=== PATIENT | male | born 1955 | race Caucasian/White ===

== ENCOUNTER 2017-11-27 15:59 | Emergency (ER) | payer OTHER, MEDICAID, SELFPAY ==
[2017-11-27 16:02] VITALS: BP 113/71; PULSE 83; RESP 16; TEMP 35.7; O2SAT 98; BMI 30.2
--- NOTE | 2017-11-27 16:04 | DI.RAD.S_ITS ---
PROCEDURE: XR CHEST 1V INDICATIONS: chest pain TECHNIQUE: One view of the chest was acquired. COMPARISON: None. FINDINGS: Surgical changes and devices: None. Lungs and pleura: No pleural effusions or pneumothorax. Lungs are clear. Mediastinum: Mediastinal contours appear normal. Heart size is normal. Bones and chest wall: No suspicious bony lesions. Overlying soft tissues appear unremarkable. IMPRESSION: No acute process. Dictated by: Stephany Langston M.D. on 11/27/2017 at 16:14 Approved by: Stephany Langston M.D. on 11/27/2017 at 16:14
--- NOTE | 2017-11-27 16:06 | ED.CHESTPAIN ---
HPI - Chest Pain General Chief Complaint: Chest Pain Stated Complaint: SENT TO R/O HEART ATTACK Time Seen by Provider: 11/27/17 16:04 Source: patient Mode of arrival: ambulatory Limitations: no limitations History of Present Illness HPI narrative: 62-year-old male sent over from the walk-in clinic for evaluation of chest pain. Patient states that earlier today he was working above his head with his left arm elevated and had a sharp pain in his left shoulder. He stated that he put his arm down and the pain went away but then shortly afterwards came back worse than it was before. Lasted a very short period of time. States that it hurts so bad that he became sweaty And nauseous. He did not state that he ever had chest pain. No shortness of breath. He reports that his symptoms had completely resolved by the time he arrived here in the emergency department. Related Data Home Medications Medication Instructions Recorded Confirmed elviteg 150 mg-cob 150 mg-emtricit 1 tab PO DAILY 11/27/17 11/27/17 200 mg-tenofo disopro 300 mg tablet Allergies Allergy/AdvReac Type Severity Reaction Status Date / Time No Known Drug Allergies Allergy Verified 11/27/17 16:02 Review of Systems Constitutional Denies chills, Denies fatigue, Denies fever(s) and Denies headache(s) ENT Ears, Nose, Mouth, and Throat: Denies headache(s) Cardiovascular Denies chest pain, Denies edema, Denies palpitations and Denies dyspnea Respiratory Denies cough and Denies dyspnea Gastrointestinal Gastrointestinal: Denies abdominal pain, Denies diarrhea, Denies nausea and Denies vomiting Musculoskeletal Comments: Left shoulder pain Integumentary/Breasts Denies lesions and Denies rash Neurologic Denies confusion and Denies headache(s) Psychiatric Denies confusion Endocrine Denies fatigue and Denies palpitations Hematologic/Lymphatic Denies easy bleeding and Denies easy bruising Allergic/Immunologic Denies urticaria [facility] Social History Smoking Status: Current every day smoker Exam Initial Vital Signs Initial Vital Signs: Vital Signs Temperature 96.3 F L 11/27/17 16:02 Pulse Rate 83 11/27/17 16:02 Respiratory Rate 16 11/27/17 16:02 Blood Pressure 113/71 11/27/17 16:02 Pulse Oximetry 98 11/27/17 16:02 Const General: cooperative, healthy appearing, comfortable, well developed, well groomed and No acute distress Orientation: alert, awake and oriented x3 HENMT Head: normal to inspection and normocephalic Resp Effort & Inspection: normal respiratory effort Auscultation: clear to auscultation bilaterally Cardio Rate: regular rate Rhythm: regular rhythm Pulses: radial pulses present GI Inspection: normal to inspection and non-distended Palpation: soft, No firm and No tender Skin Lesions: no lesions Rashes: no rashes Neuro General: alert, awake and oriented x3 Cognition: normal cognition Speech: speech normal Extrem Other: unremarkable left shoulder exam here in the emergency department left elbow unremarkable cervical spine unremarkable Psych Appearance: grossly normal, well kempt and not disheveled Course Orders Ordered: ED Orders 11/27/17 16:04 XR chest 1V Stat EKG-12 Lead Stat 11/27/17 16:20 B Type Natriuretic Peptide Stat Complete Blood Count AUTO DIFF Stat Comprehensive Metabolic Panel Stat Lipase Stat Troponin & CK Cardiac Panel Stat 11/27/17 17:30 Urine Culture Stat Urine Microscopic Stat Discontinued Medications Aspirin (Aspirin Chew) 324 mg PO NOW ONE Stop: 11/27/17 16:05 Vital Signs - 8 hr 11/27/17 16:02 11/27/17 16:38 11/27/17 17:48 Temperature 96.3 F L Pulse Rate 83 72 70 Respiratory Rate 16 21 25 H Blood Pressure 113/71 Blood Pressure [Left Arm] 102/65 100/68 Pulse Oximetry 98 97 98 11/27/17 17:57 Temperature Pulse Rate 79 Respiratory Rate 21 Blood Pressure 100/68 Blood Pressure [Left Arm] Pulse Oximetry 98 MDM - Chest Pain Medical Records Data Attestation: I reviewed the patient's medical records. Lab Data Attestation: I reviewed the patient's lab results. Result diagrams: 11/27/17 16:20 11/27/17 16:20 Lab Results 11/27/17 11/27/17 11/27/17 Range/Units 16:20 16:20 17:30 WBC 10.1 (4.5-11.0) X10^3/uL RBC 4.80 (4.5-5.9) X10^6/uL Hgb 16.2 (13.5-17.5) g/dL Hct 46.8 (41-53) % MCV 97.4 (80-100) fL MCH 33.9 (26-34) PG MCHC 34.7 (30-36) % RDW 13.3 (11.6-14.8) % Plt Count 290 (150-400) X10^3/uL Neut % (Auto) 71.2 (50-75) % Lymph % (Auto) 20.5 L (25-40) % [place] % (Auto) 5.4 (3-14) % Eos % (Auto) 2.2 (2-4) % Baso % (Auto) 0.7 (0-2) % Neut # (Auto) 7200 H (3942-5084) /uL Sodium 139 (137-145) mmol/L Potassium 4.4 (3.4-5.1) mmol/L Chloride 103 (98-107) mmol/L Carbon Dioxide 26 (22-32) mmol/L BUN 22 H (9-20) mg/dL Creatinine 1.10 (0.66-1.25) mg/dL Estimated GFR > 60.0 (>60) mL/min BUN/Creatinine Ratio 20.0 (6-22) Glucose 99 (80-110) mg/dL Calcium 9.2 (8.4-10.2) mg/dL Total Bilirubin 0.7 (0.2-1.3) mg/dL AST 27 (17-59) IU/L ALT 29 (21-72) IU/L Alkaline Phosphatase 68 (38-126) U/L Total Creatine Kinase 171 H (55-170) U/L CK-MB (CK-2) 2.88 H (<2.37) ng/mL CK-MB (CK-2) Rel Index 1.7 (1.5-5.0) % Troponin I < 0.012 (0.01-0.034) ng/mL B-Natriuretic Peptide < 100.0 (<100) Total Protein 7.3 (6.3-8.2) g/dL Albumin 4.5 (3.5-5.0) g/dL Globulin 2.8 (1.7-4.1) g/dL Albumin/Globulin Ratio 1.6 (1.0-2.8) Lipase 49 (23-300) U/L Urine RBC 1-5/hpf (0-5/HPF) Urine WBC 1-5/hpf (0-5/HPF) Ur Squamous Epith Cells None seen Amorphous Sediment 2+ Urine Bacteria Few (2-10) H (None) Ur Culture Indicated? Specimen cultured Micro UA Comment Not Reportable Imaging Data Chest x-ray: Radiologist's impression: PROCEDURE: XR CHEST 1V INDICATIONS: chest pain TECHNIQUE: One view of the chest was acquired. COMPARISON: None. FINDINGS: Surgical changes and devices: None. Lungs and pleura: No pleural effusions or pneumothorax. Lungs are clear. Mediastinum: Mediastinal contours appear normal. Heart size is normal. Bones and chest wall: No suspicious bony lesions. Overlying soft tissues appear unremarkable. IMPRESSION: No acute process. Dictated by: Stephany Langston M.D. on 11/27/2017 at 16:14 ECG Data Attestation: I personally reviewed and interpreted this ECG as follows: Prior ECG tracings: not available for review Interpretation: Sinus rhythm ventricular rate is 72 Normal QRS normal QTC No ST T wave changes MDM Narrative Medical decision making narrative: initial reports from the walk-in clinic with that the patient was having chest pain and was diaphoretic. Upon further evaluation here in the emergency department the patient states that he never had chest pain. He states that he was sweating because he was having pain in his left shoulder. The pain has now completely resolved. Chest x-ray was negative. EKG was nonischemic. Troponin was negative. His history and physical exam was not consistent with acute coronary syndrome. Small consistent with impingement syndrome of his left shoulder since he was working over his head at the time of the event. States he has never had anything like this happen to him before. patient was given return precautions. Will hold on further workup for now. He expressed understanding and agreement with plan Discharge Plan Departure Patient Disposition: Home, Self-Care Clinical Impression: Acute pain of left shoulder Discharge Date/Time: 11/27/17 17:59 Interventions: ED Discharge Assessment Last Done: 11/27/17 17:57 Instructions: How To Perform RICE (Rest, Ice, Compress, Elevate) Activity Restrictions/Additional Instructions: recommend that you contact your primary care doctor for a follow-up. You are not restricted on any of your activity. Return to the emergency department for any new or worsening symptoms. Prescriptions: No Action nadappj-nfj-wqvue-tenofo disop [Stribild] [id number] mg tablet 1 tab PO DAILY RF: 0
[2017-11-27 16:32] LABS: Add Manual Diff / Slide Review NO; Basophils Percent Auto 0.7 % (0-2); Eosinophils Percent Auto 2.2 % (2-4); Hematocrit 46.8 % (41-53); Hemoglobin 16.2 g/dL (13.5-17.5); Lymphocytes Percent Auto 20.5 % (25-40); Mean Corpuscular HGB Conc 34.7 % (30-36); Mean Corpuscular Hemoglobin 33.9 PG (26-34); Mean Corpuscular Volume 97.4 fL (80-100); Monocytes Percent Auto 5.4 % (3-14); Neutrophils Absolute Auto 7200 /uL (3000-5900); Neutrophils Percent Auto 71.2 % (50-75); Platelet Count 290 X10^3/uL (150-400); Red Cell Distribution Width 13.3 % (11.6-14.8); White Blood Cell Count 10.1 X10^3/uL (4.5-11.0)
[2017-11-27 16:38] VITALS: BP 102/65; PULSE 72; RESP 21; O2SAT 97
[2017-11-27 16:47] LABS: Alanine Aminotransferase 29 IU/L (21-72); Albumin 4.5 g/dL (3.5-5.0); Albumin Globulin Ratio 1.6 (1.0-2.8); Alkaline Phosphatase 68 U/L (38-126); Aspartate Aminotransferase 27 IU/L (17-59); Bilirubin Total 0.7 mg/dL (0.2-1.3); Blood Urea Nitrogen 22 mg/dL (9-20); Calcium 9.2 mg/dL (8.4-10.2); Carbon Dioxide 26 mmol/L (22-32); Chloride 103 mmol/L (98-107); Creatine Kinase 171 U/L (55-170); Estimated Glomerular Filt Rate > 60.0 mL/min (>60); Globulin 2.8 g/dL (1.7-4.1); Glucose 99 mg/dL (80-110); HEMOLYSIS 34 (0-50); Lipase 49 U/L (23-300); Potassium 4.4 mmol/L (3.4-5.1); Sodium 139 mmol/L (137-145); Total Protein 7.3 g/dL (6.3-8.2)
[2017-11-27 17:00] LABS: Troponin I < 0.012 ng/mL (0.01-0.034)
[2017-11-27 17:04] LABS: B Type Natriuretic Peptide < 100.0 (<100)
[2017-11-27 17:17] LABS: CKMB % Relative Index 1.7 % (1.5-5.0); Creatine Kinase MB 2.88 ng/mL (<2.37)
[2017-11-27 17:48] VITALS: BP 100/68; PULSE 70; RESP 25; O2SAT 98
[2017-11-27 17:54] LABS: RBC Urine 1-5/HPF (0-5/HPF); Squamous Epithelial Cell Urine None Seen; WBC Urine 1-5/HPF (0-5/HPF)
[2017-11-27 17:55] LABS: Amorphous Sediment Urine 2+; Bacteria Urine Few (2-10); Culture Indicated Urine Specimen Cultured
[2017-11-27 17:57] VITALS: BP 100/68; PULSE 79; RESP 21; O2SAT 98
== END 2017-11-27 17:59 | disposition home or self-care (01) ==
PROVIDERS: Emergency Provider Emergency Medicine
DX: M25.512 Pain in left shoulder (principal)
CPT/HCPCS: 36591; 71045; 80053; 81003; 81015; 82550; 82553; 83690; 83880; 84484; 85025; 87077; 87086; 87186; 93005; 99282; 99285

== ENCOUNTER 2019-08-06 19:19 | Emergency (ER) | payer OTHER, MEDICAID, SELFPAY ==
[2019-08-06 19:33] VITALS: BP 137/74; PULSE 97; RESP 15; TEMP 36.9; O2SAT 98; BMI 32.0
--- NOTE | 2019-08-06 19:53 | DI.CT.S_ITS ---
PROCEDURE: CT CERVICAL SPINE WO CON INDICATIONS: no injury, stiff neck, right and left lower facet joint tend TECHNIQUE: Noncontrast 3 mm thick sections acquired from the skull base to the T4 level. Sagittal and coronal reformats were then constructed. For radiation dose reduction, the following was used: automated exposure control, adjustment of mA and/or kV according to patient size. COMPARISON: None. FINDINGS: Image quality: Excellent. Bones: No acute fractures . Straightening of cervical lordosis with mild reversal centered at C4. Moderate multilevel cervical spondylosis throughout the cervical spine most pronounced at C4-5 and C5-6. No acute compression fractures. Moderate facet arthrosis most prominent at C3-4 on the left. There is disc space loss, degenerative endplate changes, and endplate osteophyte formation at C4-5 and C5-6. Similar but less prominent findings are noted throughout the cervical spine. There is moderate left neural foraminal narrowing at C3-4. Moderate-severe bilateral neuroforaminal stenosis at C4-5 with moderate spinal canal stenosis. Moderate-severe bilateral neuroforaminal stenosis at C5-6 with moderate spinal canal stenosis. Visualized superior ribs are intact. Soft tissues: Prevertebral soft tissues are normal in thickness. No paravertebral hematomas. No apical pneumothoraces. IMPRESSION: 1. CT cervical spine without acute fracture. 2. Moderate-severe multilevel cervical spondylosis most severe at C4-5 and C5-6 where there is disc space loss, degenerative endplate changes, and prominent endplate osteophyte formation resulting in moderate-severe bilateral neuroforaminal stenosis and moderate spinal canal stenosis at these levels. 3. Straightening of cervical lordosis with mild reversal centered at C4. Dictated by: Humberto More M.D. on 08/06/2019 at 20:35 Approved by: Humberto More M.D. on 08/06/2019 at 20:42
--- NOTE | 2019-08-06 19:53 | DI.CT.S_ITS ---
PROCEDURE: CT HEAD/BRAIN WO CON INDICATIONS: severe posterior headache, no fall or injury TECHNIQUE: Noncontrast 4.5 mm thick angled axial sections acquired from the foramen magnum to the vertex, with coronal and sagittal reformats. For radiation dose reduction, the following was used: automated exposure control, adjustment of mA and/or kV according to patient size. COMPARISON: None. FINDINGS: Image quality: Excellent. CSF spaces: Basal cisterns are patent. No extra-axial fluid collections. The ventricles are symmetric in size and shape. Brain: No intracranial bleeds or masses. There is cerebral volume loss for age, with resultant ventricular and sulcal prominence. There are periventricular and deep white matter chronic small vessel ischemic changes. There is intracranial internal carotid artery atherosclerosis. Calcification of the pineal gland. Skull and face: Calvarium and visualized facial bones appear intact, without suspicious lesions. Sinuses: Visualized sinuses and mastoids are clear. IMPRESSION: CT head without acute intracranial abnormalities. Dictated by: Humberto More M.D. on 08/06/2019 at 20:34 Approved by: Humberto More M.D. on 08/06/2019 at 20:34
--- NOTE | 2019-08-06 19:53 | ED.NECK ---
HPI - Neck Pain/Injury General Chief Complaint: Neck Pain/Injury Stated Complaint: STIFF NECK AND HEADACHE Time Seen by Provider: 08/06/19 19:44 Mode of arrival: Ambulatory Limitations: no limitations History of Present Illness HPI Narrative: CC: The patient is a 63-year-old male that denies any known specific injury to his neck. He has developed over the last 2 days significant pain and discomfort in his neck and posterior occiput. He has also had a headache located behind both of his eyes. He states that it hurts to move the arm especially yesterday and less pain and discomfort today. He states that he has been taking ibuprofen for the pain and discomfort. Tonight he was just feeling sick and the headache was worse today. He had a mild temperature of 99?. They called the nurse help line and was sent into the emergency department to be evaluated. He denies any fall or injury. He admits to being HIV positive in the past but denies any history of hepatitis TB diabetes mellitus hypertension myocardial infarction COPD or asthma. 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 He has not felt feverish with chills or sweats. He has not traveled outside the [place]. He has not been excessively short of breath. The headache today is most bothersome. He has had no loss of vision change in vision blind spots or diplopia. He denies any numbness tingling anesthesia is paresis or paralysis. He has had no shooting pain down his arm back or arms. He denies any chest pain palpitations dizziness cough shortness of breath. He has had no other joint aches or muscle aches. He denies any abdominal pain nausea vomiting diarrhea or any other urinary symptoms. Related Data Home Medications Medication Instructions Recorded Confirmed elviteg 150 mg-cob 150 mg-emtricit 1 tab PO DAILY 11/27/17 11/27/17 200 mg-tenofo disopro 300 mg tablet elviteg 150 mg-cob 150 mg-emtricit 1 tab PO DAILY 06/02/19 06/02/19 200 mg-tenofo disopro 300 mg tablet Previous Rx's Medication Instructions Recorded cyclobenzaprine 10 mg PO TID PRN #15 tab 08/06/19 naproxen [Naprosyn] 500 mg PO BID PRN #20 tab 08/06/19 prednisone 40 mg PO DAILY #10 tab 08/06/19 tramadol 50 mg PO Q6H PRN #12 tab 08/06/19 Allergies Allergy/AdvReac Type Severity Reaction Status Date / Time No Known Drug Allergies Allergy Verified 08/06/19 19:33 Review of Systems Review of Systems Narrative: Review of systems are all negative except for those mentioned in the history of present illness. Patient History Medical History At risk for side effect of medication (Acute) Chicken pox (Resolved ~1964) Chronic left shoulder pain (Acute) Establishing care with new doctor, encounter for (Acute) HIV (human immunodeficiency virus infection) (Acute ~1992) MRSA (methicillin resistant Staphylococcus aureus) (Inactive ~2006) Shoulder pain (Chronic ~2017) Tobacco abuse disorder (Acute) Vision disorder (Chronic) Surgical History Encounter for screening colonoscopy (Resolved) Family History Father No problems noted. Mother No problems noted. Social History Smoking Status: Current every day smoker Smoking Status: Current every day smoker alcohol intake frequency: 0-2 drinks per day Substance Use Type: marijuana Exam Narrative Exam Narrative: PHYSICAL EXAM: CONSTITUTIONAL: Awake, Alert, Oriented, Coherent, Cooperative in NAD. Use wearing a mask. Does not appear toxic or ill. He grimaced and held his neck when he tried to sit up complaining of pain and discomfort in his neck. He states that the pain and discomfort was worse yesterday than today HEAD: AT/NC EENT: PERRL, FROM of eyes, no discharge, No epistaxis or nasal drainage Oral mucosa is moist and pink, posterior pharynx is without erythema or exudate. NECK: Supple, no obvious JVD, Trachea is midline without stridor, no palpable LN or masses. SPINE: No gross deformity, no palpable tenderness of the cervical spine posteriorly. The patient however does have bilateral paraspinous muscle tenderness with mild increase tone. He is very tender to palpation over the right and left lower facet joints bilaterally. There is no tenderness to palpation over the supraclavicular fossa is or manubrium. There was no tenderness to palpation over the thoracic lumbar or sacral spine no costovertebral angle tenderness. THORAX: No deformity, retractions, chest wall tenderness to AP compression. LUNGS: Clear with symmetrical breath sounds without respiratory distress HEART: Normal heart tones, regular rhythm and rate without murmur. ABDOMEN: Soft, non-tender, without guarding, rebound, rigidity or palpable mass EXTREMITIES: No edema, cyanosis, deformity or tenderness. The patient has a biopsy with a bandage over his distal medial and lateral distal right leg SKIN: No rash, bruising, petechiae or purpura. NEURO: Awake, alert, oriented, conversive, cranial nerves II-XII are symmetrical and normal, moves all 4 extremities and is ambulatory holding his neck stiffly. Initial Vital Signs Initial Vital Signs: Vital Signs Temperature 98.4 F 08/06/19 19:33 Pulse Rate 97 H 08/06/19 19:33 Respiratory Rate 15 08/06/19 19:33 Blood Pressure 137/74 08/06/19 19:33 Pulse Oximetry 98 08/06/19 19:33 Course Course Course Narrative: [address] of his cervical spine reveals: 1. No acute fracture. 2; moderate severe multilevel cervical spondylosis most severe at the C4-C5 and C5-C6 where there are disc spaces loss. Degenerative endplate changes and prominent endplate osteophyte formation resulting in moderate severe bilateral foraminal stenosis and moderate spinal canal stenosis at all levels. 3. Straightening of the cervical lordosis with mild reversal centered at C4. The patient will be placed on cyclobenzaprine, prednisone, Naprosyn 500 mg twice a day and tramadol as a rescue medicine 50 mg Q 6 hours number 12. He will be referred to his primary care physician to be referred to a neurosurgeon or orthopedic surgeon for further evaluation of his disc space problems . As an outpatient he will need an MRI of his neck. Orders Ordered: Discontinued Medications Cyclobenzaprine HCl (Flexeril) 10 mg PO NOW ONE Stop: 08/06/19 19:56 Last Admin: 08/06/19 20:20 Dose: 10 mg Documented by: ARUNA Diphenhydramine HCl (Benadryl) 25 mg IV NOW ONE Stop: 08/06/19 20:01 Last Admin: 08/06/19 20:26 Dose: 25 mg Documented by: ARUNA Ketorolac Tromethamine (Toradol) 30 mg IV NOW ONE Stop: 08/06/19 19:58 Last Admin: 08/06/19 20:20 Dose: 30 mg Documented by: ARUNA Methylprednisolone (Solu-Medrol 125 Mg Vial) 125 mg IV NOW ONE Stop: 08/06/19 20:01 Last Admin: 08/06/19 20:26 Dose: 125 mg Documented by: ARUNA Metoclopramide HCl (Reglan) 10 mg IV NOW ONE Stop: 08/06/19 20:01 Last Admin: 08/06/19 20:26 Dose: 10 mg Documented by: ARUNA Vital Signs Vital signs: Vital Signs - 8 hr 08/06/19 19:33 Temperature 98.4 F Pulse Rate 97 H Respiratory Rate 15 Blood Pressure 137/74 Pulse Oximetry 98 MDM - Neck Pain/Injury Lab Data Result diagrams: 08/06/19 20:10 08/06/19 20:10 Labs: Lab Results 08/06/19 08/06/19 Range/Units 20:10 20:10 WBC 12.3 H (4.5-11.0) X10^3/uL RBC 4.60 (4.5-5.9) X10^6/uL Hgb 15.5 (13.5-17.5) g/dL Hct 44.8 (41-53) % MCV 97.5 (80-100) fL MCH 33.8 (26-34) PG MCHC 34.6 (30-36) % RDW 13.1 (11.6-14.8) % Plt Count 270 (150-400) X10^3/uL Neut % (Auto) 71.3 (50-75) % Lymph % (Auto) 18.9 L (25-40) % [place] % (Auto) 7.3 (3-14) % Eos % (Auto) 1.9 L (2-4) % Baso % (Auto) 0.6 (0-2) % Neut # (Auto) 8800 H (4234-3800) /uL Lymph # (Auto) 2300 (9455-4333) /uL [place] # (Auto) 900 (0-900) /uL Eos # (Auto) 200 (0-450) /uL Baso # (Auto) 100 (0-100) /uL Sodium 140 (137-145) mmol/L Potassium 4.3 (3.4-5.1) mmol/L Chloride 106 (98-107) mmol/L Carbon Dioxide 25 (22-32) mmol/L BUN 21 H (9-20) mg/dL Creatinine 1.01 (0.66-1.25) mg/dL Estimated GFR > 60.0 (>60) mL/min BUN/Creatinine Ratio 20.8 (6-22) Glucose 107 (80-110) mg/dL Calcium 9.5 (8.4-10.2) mg/dL Total Bilirubin 0.4 (0.2-1.3) mg/dL AST 26 (17-59) IU/L ALT 18 (<50) IU/L Alkaline Phosphatase 91 (38-126) U/L Total Protein 7.7 (6.3-8.2) g/dL Albumin 4.5 (3.5-5.0) g/dL Globulin 3.2 (1.7-4.1) g/dL Albumin/Globulin Ratio 1.4 (1.0-2.8) Discharge Plan Departure Patient Disposition: Home Clinical Impression: Neck pain HIV (human immunodeficiency virus infection) Qualifiers: HIV symptom status: unspecified Qualified Code(s): B20 - Human immunodeficiency virus [HIV] disease Strain of neck muscle Qualifiers: Encounter type: initial encounter Qualified Code(s): S16.1XXA - Strain of muscle, fascia and tendon at neck level, initial encounter Acute tension headache Qualifiers: Intractability: not intractable Qualified Code(s): G44.209 - Tension-type headache, unspecified, not intractable Discharge Date/Time: 08/06/19 22:40 Instructions: Neck Sprain, DI for Hormonal and Tension Headaches, DI for Neck Pain Activity Restrictions/Additional Instructions: 1. Return to the emergency department if you develop shooting pain or discomfort numbness or tingling in your arms or severe worsening pain uncontrolled by the medications prescribed. 2. Follow-up with your primary care physician to be referred to either a neurosurgeon or orthopedic surgeon who evaluates neck is. 3. Take the following medicines as prescribed for your pain and discomfort. Naprosyn 500 mg twice a day, cyclobenzaprine 10 mg 3 times a day for muscle spasms prednisone 40 mg per day for the next 5 days. Tramadol 50 mg every 6 hours as a rescue medicine for severe pain unrelieved by the other medications. Prescriptions: New tramadol 50 mg tablet 50 mg PO Q6H PRN (Reason: pain) Qty: 12 RF: 0 prednisone 20 mg tablet 40 mg PO DAILY Qty: 10 RF: 0 cyclobenzaprine 10 mg tablet 10 mg PO TID PRN (Reason: muscle spasm) Qty: 15 RF: 0 naproxen [Naprosyn] 500 mg tablet 500 mg PO BID PRN (Reason: pain) Qty: 20 RF: 0 No Action [id number]-tkq-wbkva-tenofo disop [Stribild] [id number] mg tablet 1 tab PO DAILY RF: 0 Stribild [id number] mg tablet 1 tab PO DAILY RF: 0 ED Sign-out Cosign ED Attending Cosignature Attestation: I was immediately available in the department for consultation. This documentation has been reviewed and I agree with assessment and plan. Supervised by Eduardo Baldwin MD
[2019-08-06] MEDS: KETOROLAC 60 MG/2 ML VIAL 30 MG IV (20:20)
[2019-08-06] MEDS: CYCLOBENZAPRINE 10 MG TABLET PO (20:20)
[2019-08-06] MEDS: methylPREDNISolone 125 MG/2 ML VIAL IV (20:26)
[2019-08-06] MEDS: METOCLOPRAMIDE 10 MG/2 ML INJ IV (20:26)
[2019-08-06] MEDS: diphenhydrAMINE 50 MG/ML VIAL 25 MG IV (20:26)
[2019-08-06 20:27] LABS: Add Manual Diff / Slide Review NO; Basophils Absolute Auto 100 /uL (0-100); Basophils Percent Auto 0.6 % (0-2); Eosinophils Absolute Auto 200 /uL (0-450); Eosinophils Percent Auto 1.9 % (2-4); Hematocrit 44.8 % (41-53); Hemoglobin 15.5 g/dL (13.5-17.5); Lymphocytes Absolute Auto 2300 /uL (1100-4500); Lymphocytes Percent Auto 18.9 % (25-40); Mean Corpuscular HGB Conc 34.6 % (30-36); Mean Corpuscular Hemoglobin 33.8 PG (26-34); Mean Corpuscular Volume 97.5 fL (80-100); Monocytes Absolute Auto 900 /uL (0-900); Monocytes Percent Auto 7.3 % (3-14); Neutrophils Absolute Auto 8800 /uL (1500-7000); Neutrophils Percent Auto 71.3 % (50-75); Platelet Count 270 X10^3/uL (150-400); Red Cell Distribution Width 13.1 % (11.6-14.8); White Blood Cell Count 12.3 X10^3/uL (4.5-11.0)
[2019-08-06 20:37] LABS: Alanine Aminotransferase 18 IU/L (<50); Albumin 4.5 g/dL (3.5-5.0); Albumin Globulin Ratio 1.4 (1.0-2.8); Alkaline Phosphatase 91 U/L (38-126); Aspartate Aminotransferase 26 IU/L (17-59); BUN Creatinine Ratio 20.8 (6-22); Bilirubin Total 0.4 mg/dL (0.2-1.3); Blood Urea Nitrogen 21 mg/dL (9-20); Calcium 9.5 mg/dL (8.4-10.2); Carbon Dioxide 25 mmol/L (22-32); Chloride 106 mmol/L (98-107); Estimated Glomerular Filt Rate > 60.0 mL/min (>60); Globulin 3.2 g/dL (1.7-4.1); Glucose 107 mg/dL (80-110); HEMOLYSIS 16 (0-50); Potassium 4.3 mmol/L (3.4-5.1); Sodium 140 mmol/L (137-145); Total Protein 7.7 g/dL (6.3-8.2)
[2019-08-06 22:12] VITALS: BP 117/77; PULSE 80; RESP 16; TEMP 36.8; O2SAT 97
== END 2019-08-06 22:40 | disposition home or self-care (01) ==
PROVIDERS: Emergency Provider Emergency Medicine
DX: M54.2 Cervicalgia (principal); S16.1XXA Strain of muscle, fascia and tendon at neck level, initial encounter; G44.209 Tension-type headache, unspecified, not intractable; B20 Human immunodeficiency virus [HIV] disease
CPT/HCPCS: 70450; 72125; 80053; 85025; 96374; 96375; 99283; 99284; 99291; 99292; J1200; J1885; J2765; J2930

== ENCOUNTER → 2020-06-01 07:45 | Outpatient (CLI) | payer OTHER, MEDICAID, SELFPAY ==
[2020-06-01 08:01] LABS: WBC Urine None Seen (0-5/HPF)
[2020-06-01 08:48] LABS: Add Manual Diff / Slide Review NO; Basophils Absolute Auto 0 /uL (0-100); Basophils Percent Auto 0.3 % (0-2); Eosinophils Absolute Auto 200 /uL (0-450); Eosinophils Percent Auto 2.1 % (2-4); Hematocrit 45.7 % (41-53); Hemoglobin 15.6 g/dL (13.5-17.5); Lymphocytes Absolute Auto 2100 /uL (1100-4500); Lymphocytes Percent Auto 23.3 % (25-40); Mean Corpuscular HGB Conc 34.1 % (30-36); Mean Corpuscular Hemoglobin 32.9 PG (26-34); Mean Corpuscular Volume 96.5 fL (80-100); Monocytes Absolute Auto 500 /uL (0-900); Monocytes Percent Auto 5.5 % (3-14); Neutrophils Absolute Auto 6200 /uL (1500-7000); Neutrophils Percent Auto 68.8 % (50-75); Platelet Count 269 X10^3/uL (150-400); Red Blood Cell Count 4.73 X10^6/uL (4.5-5.9)
[2020-06-01 08:50] LABS: Appearance Urine UA CLEAR; Bilirubin Urine UA NEGATIVE (NEGATIVE); Color Urine UA YELLOW; Glucose Urine UA NEGATIVE (Negative); Ketones Urine UA NEGATIVE (NEGATIVE); Leukocyte Esterase Urine UA NEGATIVE (NEGATIVE); Nitrite Urine UA POSITIVE (Negative); Occult Blood Urine UA 1+ (Negative); Protein Urine UA NEGATIVE (Negative); Urobilinogen Urine UA 0.2 E.U./dL (0.2)
[2020-06-01 09:16] LABS: Amorphous Sediment Urine 4+; Bacteria Urine Moderate (10-30); Culture Indicated Urine Specimen Cultured; RBC Urine 0-1/HPF (0-5/HPF)
[2020-06-01 09:17] LABS: Alanine Aminotransferase 17 IU/L (<50); Albumin Globulin Ratio 1.7 (1.0-2.8); Alkaline Phosphatase 80 U/L (38-126); Aspartate Aminotransferase 28 IU/L (17-59); BUN Creatinine Ratio 17.8 (6-22); Bilirubin Total 0.5 mg/dL (0.2-1.3); Blood Urea Nitrogen 18 mg/dL (9-20); Calcium 9.1 mg/dL (8.4-10.2); Carbon Dioxide 28 mmol/L (22-32); Chloride 105 mmol/L (98-107); Estimated Glomerular Filt Rate > 60.0 mL/min (>60); Globulin 2.4 g/dL (1.7-4.1); Glucose 100 mg/dL (80-110); HEMOLYSIS < 15 (0-50); Potassium 4.2 mmol/L (3.4-5.1); Sodium 135 mmol/L (137-145); Total Protein 6.4 g/dL (6.3-8.2)
[2020-06-02 13:10] LABS: Absolute CD 4 Helper 722 /uL (359-1519); Basophils (Absolute) 0.1 x10E3/uL (0.0-0.2); Eosinophils 2 % (Not Estab.); Eosinophils (Absolute) 0.2 x10E3/uL (0.0-0.4); Hemacrit 39.8 % (37.5-51.0); Hemoglobin 13.7 g/dL (13.0-17.7); Immature Granulocytes 0 % (Not Estab.); Lymphocytes 22 % (Not Estab.); Lymphocytes (Absolute) 2.1 x10E3/uL (0.7-3.1); MCHC 33.6 pg (26.6-33.0); MCHC 34.4 g/dL (31.5-35.7); MCV 98 fL (79-97); Monocytes 6 % (Not Estab.); Monocytes (Absolute) 0.5 x10E3/uL (0.1-0.9); Neutrophils 69 % (Not Estab.); Neutrophils (Absolute) 6.6 x10E3/uL (1.4-7.0); Percent CD 4 Pos Lymph 34.4 % (30.8-58.5); Platelets 320 x10E3/uL (150-450); RDW 12.6 % (11.6-15.4); Red Blood Cells 4.08 x10E6/uL (4.14-5.80); White Blood Cells 9.5 x10E3/uL (3.4-10.8)
[2020-06-09 22:36] LABS: HIV-1 RNA by PCR <40 copies/mL (.)
== END ==
DX: Z21 Asymptomatic human immunodeficiency virus [HIV] infection status (principal)
CPT/HCPCS: 36415; 80053; 81001; 85025; 86361; 87077; 87086; 87186; 87536

== ENCOUNTER → 2020-06-05 09:47 | Outpatient (CLI) | payer OTHER, MEDICAID, SELFPAY | PROVIDERS: PCP Family Medicine; Referring Provider Family Medicine; Visit Provider Family Medicine | DX: M85.852 Other specified disorders of bone density and structure, left thigh (principal); Z21 Asymptomatic human immunodeficiency virus [HIV] infection status; Z91.89 Other specified personal risk factors, not elsewhere classified; Z72.0 Tobacco use; Z79.899 Other long term (current) drug therapy; Z82.62 Family history of osteoporosis | CPT/HCPCS: 77080 ==

== ENCOUNTER 2020-09-18 12:18 | Emergency (ER) | payer OTHER, MEDICAID, SELFPAY ==
[2020-09-18 12:45] VITALS: BP 112/72; PULSE 61; RESP 14; TEMP 36.7; O2SAT 98; BMI 33.0
--- NOTE | 2020-09-18 12:49 | DI.RAD.S_ITS ---
PROCEDURE: XR KNEE RT 3V INDICATIONS: atraumatic swelling right knee TECHNIQUE: 3 views of the knee were acquired. COMPARISON: None. FINDINGS: Bones: No acute fracture. Mild narrowing of the medial joint space. Scattered degenerative subchondral sclerosis and spurring. 1.0 cm sclerotic lesion involving the fibular head. Soft tissues: Large joint effusion. Possible faint lateral compartment chondrocalcinosis. IMPRESSION: Large joint effusion. If the patient's pain or other symptoms persist, consider further evaluation with MRI Chondrocalcinosis Sclerotic lesion involving the fibular head, statistically low-grade chondroid lesion such as enchondroma although technically nonspecific and recommend radiographic follow-up at six-month intervals for minimum 2 years to document long-term stability. Mild osteoarthritis Dictated by: Qasim Streeter M.D. on 09/18/2020 at 13:31 Approved by: Qasim Streeter M.D. on 09/18/2020 at 13:33
[2020-09-18 13:25] LABS: Add Manual Diff / Slide Review NO; Basophils Absolute Auto 100 /uL (0-100); Basophils Percent Auto 0.7 % (0-2); Eosinophils Absolute Auto 200 /uL (0-450); Hematocrit 48.1 % (41-53); Hemoglobin 16.6 g/dL (13.5-17.5); Lymphocytes Absolute Auto 2400 /uL (1100-4500); Lymphocytes Percent Auto 22.5 % (25-40); Mean Corpuscular HGB Conc 34.5 % (30-36); Mean Corpuscular Hemoglobin 33.4 PG (26-34); Mean Corpuscular Volume 96.8 fL (80-100); Monocytes Absolute Auto 700 /uL (0-900); Monocytes Percent Auto 6.4 % (3-14); Neutrophils Absolute Auto 7300 /uL (1500-7000); Neutrophils Percent Auto 68.4 % (50-75); Platelet Count 258 X10^3/uL (150-400); Red Blood Cell Count 4.97 X10^6/uL (4.5-5.9); Red Cell Distribution Width 13.2 % (11.6-14.8); White Blood Cell Count 10.7 X10^3/uL (4.5-11.0)
[2020-09-18 13:41] LABS: BUN Creatinine Ratio 16.1 (6-22); Blood Urea Nitrogen 15 mg/dL (9-20); C-Reactive Protein Quant 1.2 mg/dL (<1.0); Calcium 9.6 mg/dL (8.4-10.2); Carbon Dioxide 24 mmol/L (22-32); Chloride 106 mmol/L (98-107); Estimated Glomerular Filt Rate > 60.0 mL/min (>60); Glucose 89 mg/dL (80-110); HEMOLYSIS < 15 (0-50); Potassium 4.1 mmol/L (3.4-5.1); Sodium 139 mmol/L (137-145)
[2020-09-18 13:46] LABS: Erythrocyte Sedimentation Rate 6 MM/HR (0-15)
[2020-09-18 13:52] LABS: Procalcitonin 0.05 ng/mL (<0.5)
--- NOTE | 2020-09-18 15:26 | ED.EXTPRO ---
HPI - Extremity Problem General Chief complaint: Extremity Problem,Nontraumatic Stated complaint: Swollen Right Knee Time Seen by Provider: 09/18/20 15:26 Source: patient and old records reviewed Mode of arrival: Ambulatory Limitations: no limitations History of Present Illness HPI Narrative: This is a 64-year-old male comes emergency department with complaint of swelling of his right knee. Patient states he has had swelling intermittently in the past. He states once prior he had swelling was minute to the hospital but they drain fluid from the knee and he was told it was fine and was discharged immediately thereafter. Patient states he was not on any antibiotics for this event. He states that he used to spend a lot of time working on his knees and would have swelling intermittently. Patient noticed over the last 3 or 4 days he has had increasing swelling and discomfort. Patient states better overnight and then worsens during the day when he walks around. He proceeded mostly over the top of the knee. Patient states there may be some mild warmth. He has not had any fevers or chills. Patient denies any numbness, tingling or weakness. He states his only medical issue is HIV which he states his viral load and T-cell count are in good range and have been stable. Patient states he has had multiple orthopedic injuries in the past but has never had surgery on his right knee, never had any sort of arthroscopic repair. He denies any allergies to medications. Related Data Home Medications Medication Instructions Recorded Confirmed elviteg 150 mg-cob 150 mg-emtricit 1 tab PO DAILY 11/27/17 11/27/17 200 mg-tenofo disopro 300 mg tablet elviteg 150 mg-cob 150 mg-emtricit 1 tab PO DAILY 06/02/19 06/02/19 200 mg-tenofo disopro 300 mg tablet Previous Rx's Medication Instructions Recorded cyclobenzaprine 10 mg PO TID PRN #15 tab 08/06/19 naproxen [Naprosyn] 500 mg PO BID PRN #20 tab 08/06/19 prednisone 40 mg PO DAILY #10 tab 08/06/19 tramadol 50 mg PO Q6H PRN #12 tab 08/06/19 prednisone 40 mg PO DAILY #10 tab 09/18/20 Allergies Allergy/AdvReac Type Severity Reaction Status Date / Time No Known Drug Allergies Allergy Verified 09/18/20 12:35 Review of Systems Review of Systems ROS Unobtainable: All systems reviewed & are unremarkable except as noted in HPI and below Patient History Medical History At risk for side effect of medication Chicken pox (~1964) Chronic left shoulder pain Establishing care with new doctor, encounter for HIV (human immunodeficiency virus infection) (~1992) MRSA (methicillin resistant Staphylococcus aureus) (~2006) Shoulder pain (~2017) Smoking greater than 40 pack years Tobacco abuse disorder Vision disorder Surgical History Encounter for screening colonoscopy Family History Father No problems noted. Mother No problems noted. Social History Smoking Status: Current every day smoker Smoking Status: Current every day smoker alcohol intake frequency: 0-2 drinks per day Substance Use Type: marijuana Exam Narrative Exam Narrative: GENERAL: Alert and oriented x three, well-nourished male in mild distress. Patient is sitting in a wheelchair. HEENT: Head normocephalic, atraumatic, EOMI, pupils reactive, face symmetric, moist mucous membranes NECK: Supple, full range of motion CARDIOVASCULAR: Regular rate and rhythm without murmurs, rubs or gallops. RESPIRATORY: Breath sounds equal bilaterally, no wheezes rales or rhonchi. ABDOMEN: Soft, nontender. Normoactive bowel sounds all 4 quadrants. No guarding or rebound, rigidity, no mass EXTREMITIES: Normal range of motion, patient does appear to have edema of his right knee, neg ballotement test, no clubbing. No a seroma or skin color changes are appreciated. No bruising. Patient does not have any warmth to palpation. Patient does not have any bony tenderness on examination. Neurovascularly intact. Patient is able to stand but is uncomfortable on exam. NEUROLOGICAL: Cranial nerves II through XII grossly intact. Moving all extremities SKIN: Warm, dry, no petechiae, no rashes or lesions. Initial Vital Signs Initial Vital Signs: Vital Signs Temperature 98.1 F 09/18/20 12:45 Pulse Rate 61 09/18/20 12:45 Respiratory Rate 14 09/18/20 12:45 Blood Pressure 112/72 09/18/20 12:45 Pulse Oximetry 98 09/18/20 12:45 Course Orders Ordered: ED Orders 09/18/20 12:49 XR knee RT 3V Stat 09/18/20 13:05 Basic Metabolic Panel Stat C-Reactive Protein Quant Stat Complete Blood Count AUTO DIFF Stat Erythrocyte Sedimentation Rate Stat Procalcitonin Stat Vital Signs Vital signs: Vital Signs - 8 hr 09/18/20 12:45 09/18/20 16:14 Temperature 98.1 F Pulse Rate 61 66 Respiratory Rate 14 18 Blood Pressure 112/72 115/80 Pulse Oximetry 98 100 MDM - Extremity (Nontraumatic) Lab Data Attestation: I reviewed the patient's lab results. Result diagrams: 09/18/20 13:05 09/18/20 13:05 Labs: Lab Results 09/18/20 09/18/20 Range/Units 13:05 13:05 WBC 10.7 (4.5-11.0) X10^3/uL RBC 4.97 (4.5-5.9) X10^6/uL Hgb 16.6 (13.5-17.5) g/dL Hct 48.1 (41-53) % MCV 96.8 (80-100) fL MCH 33.4 (26-34) PG MCHC 34.5 (30-36) % RDW 13.2 (11.6-14.8) % Plt Count 258 (150-400) X10^3/uL Neut % (Auto) 68.4 (50-75) % Lymph % (Auto) 22.5 L (25-40) % Pepin % (Auto) 6.4 (3-14) % Eos % (Auto) 2.0 (2-4) % Baso % (Auto) 0.7 (0-2) % Neut # (Auto) 7300 H (6738-1048) /uL Lymph # (Auto) 2400 (1908-1146) /uL Pepin # (Auto) 700 (0-900) /uL Eos # (Auto) 200 (0-450) /uL Baso # (Auto) 100 (0-100) /uL ESR 6 (0-15) MM/HR Sodium 139 (137-145) mmol/L Potassium 4.1 (3.4-5.1) mmol/L Chloride 106 (98-107) mmol/L Carbon Dioxide 24 (22-32) mmol/L BUN 15 (9-20) mg/dL Creatinine 0.93 (0.66-1.25) mg/dL Estimated GFR > 60.0 (>60) mL/min BUN/Creatinine Ratio 16.1 (6-22) Glucose 89 (80-110) mg/dL Calcium 9.6 (8.4-10.2) mg/dL C-Reactive Protein 1.2 H (<1.0) mg/dL Procalcitonin 0.05 (<0.5) ng/mL Imaging Data Extremity x-ray #1: Radiologist's Impression: [address] [id number] ReportSigned Patient: Raphael Mccracken [facility]#: [id number]: 8Acct:[id number]/Sex: 64 / MDate of Service: 09/18/20Loc: EDAccession Number: [id number] Procedure: XR knee RT 3V Ordering Provider: Abhay Angeles D.O. PROCEDURE: XR KNEE RT 3V INDICATIONS: atraumatic swelling right knee TECHNIQUE: 3 views of the knee were acquired. COMPARISON: None. FINDINGS: Bones: No acute fracture. Mild narrowing of the medial joint space. Scattered degenerative subchondral sclerosis and spurring. 1.0 cm sclerotic lesion involving the fibular head. Soft tissues: Large joint effusion. Possible faint lateral compartment chondrocalcinosis. IMPRESSION: Large joint effusion. If the patient's pain or other symptoms persist, consider further evaluation with MRI Chondrocalcinosis Sclerotic lesion involving the fibular head, statistically low-grade chondroid lesion such as enchondroma although technically nonspecific and recommend radiographic follow-up at six-month intervals for minimum 2 years to document long-term stability. Mild osteoarthritis Dictated by: Qasim Streeter M.D. on 09/18/2020 at 13:31 Approved by: Qasim Streeter M.D. on 09/18/2020 at 13:33 MDM Narrative Medical decision making narrative: This is a 64-year-old male comes in with complaint of intermittently swollen right knee which is slightly worse than his typical past events. Patient has had 1 episode of drainage which did not show any infectious source. Patient's does have an effusion on his x-ray there is also a sclerotic lesion which patient was informed that he should have interval follow-up to document stability and if it was continuing to change would need further evaluation. Patient labs show a slightly elevated CRP but otherwise normal white count, ESR and procalcitonin with no other systemic symptoms that make me suspicious for septic arthritis. Patient is on HIV medications but has been stable with T-cell count over 200 and low or non-existent viral load for a prolonged period of time. Patient and I discussed possible arthrocentesis and risks and benefits but that this could potentially introduce infection at any time you put a needle into a joint and patient defers. We did discuss signs and symptoms to watch for, return precautions. Discharge Plan Departure Patient Disposition: Home Clinical Impression: Acute knee pain, Joint effusion of knee Instructions: DI for Knee Pain Activity Restrictions/Additional Instructions: Follow up with orthopedic surgery if you are not having any improvement. Call for an appointment at the number below. Take steroids once daily until gone. You may take ibuprofen up to 800 mg every 8 hours as needed for pain. There is a sclerotic lesion on your fibula, it is recommended that you have serial imaging every 6 months for at least 2 years to document stability. Discuss with orthopedic surgery or your primary care physician about having follow up. Please return for fevers greater 100.4 F, increasing swelling, redness, increasing warmth, new weakness, numbness or loss of sensation or other new or concerning symptoms. Prescriptions: New prednisone 20 mg tablet 40 mg PO DAILY Qty: 10 RF: 0 No Action [id number]-[id number]-egasm-tenofo disop [Stribild] [phone] mg tablet 1 tab PO DAILY RF: 0 Stribild [phone] mg tablet 1 tab PO DAILY RF: 0 tramadol 50 mg tablet 50 mg PO Q6H PRN (Reason: pain) Qty: 12 RF: 0 prednisone 20 mg tablet 40 mg PO DAILY Qty: 10 RF: 0 cyclobenzaprine 10 mg tablet 10 mg PO TID PRN (Reason: muscle spasm) Qty: 15 RF: 0 naproxen [Naprosyn] 500 mg tablet 500 mg PO BID PRN (Reason: pain) Qty: 20 RF: 0 Referrals: Mac Echeverria MD [Physician] - Daryl Chatterjee DO [Primary Care Provider] -
[2020-09-18 16:14] VITALS: BP 115/80; PULSE 66; RESP 18; O2SAT 100
--- NOTE | 2020-09-18 16:15 | PC.NURSE ---
physical exam deferred to the .
== END 2020-09-18 16:14 | disposition home or self-care (01) ==
PROVIDERS: Emergency Medicine; Emergency Provider Emergency Medicine; PCP Family Medicine
DX: M25.561 Pain in right knee (principal); M25.461 Effusion, right knee
CPT/HCPCS: 36415; 73562; 80048; 84145; 85025; 85651; 86140; 99283; 99284

== ENCOUNTER → 2021-07-10 07:06 | Outpatient (CLI) | payer OTHER, MEDICAID, SELFPAY ==
[2021-07-10 08:37] LABS: Add Manual Diff / Slide Review NO; Basophils Absolute Auto 100 /uL (0-100); Basophils Percent Auto 0.6 % (0-2); Eosinophils Absolute Auto 200 /uL (0-450); Eosinophils Percent Auto 2.7 % (2-4); Hematocrit 44.6 % (41-53); Hemoglobin 15.2 g/dL (13.5-17.5); Lymphocytes Absolute Auto 2300 /uL (1100-4500); Lymphocytes Percent Auto 27.5 % (25-40); Mean Corpuscular HGB Conc 34.1 % (30-36); Mean Corpuscular Volume 96.6 fL (80-100); Monocytes Absolute Auto 500 /uL (0-900); Neutrophils Absolute Auto 5200 /uL (1500-7000); Neutrophils Percent Auto 63.2 % (50-75); Platelet Count 259 X10^3/uL (150-400); Red Blood Cell Count 4.62 X10^6/uL (4.5-5.9); Red Cell Distribution Width 13.2 % (11.6-14.8); White Blood Cell Count 8.3 X10^3/uL (4.5-11.0)
[2021-07-10 08:39] LABS: Alanine Aminotransferase 15 IU/L (<50); Albumin 4.2 g/dL (3.5-5.0); Albumin Globulin Ratio 1.7 (1.0-2.8); Alkaline Phosphatase 75 U/L (38-126); Aspartate Aminotransferase 27 IU/L (17-59); BUN Creatinine Ratio 18.8 (6-22); Bilirubin Total 0.5 mg/dL (0.2-1.3); Blood Urea Nitrogen 18 mg/dL (9-20); Carbon Dioxide 29 mmol/L (22-32); Chloride 104 mmol/L (98-107); Estimated Glomerular Filt Rate > 60.0 mL/min (>60); Globulin 2.5 g/dL (1.7-4.1); Glucose 86 mg/dL (80-110); HEMOLYSIS < 15 (0-50); Potassium 4.3 mmol/L (3.4-5.1); Sodium 138 mmol/L (137-145); Total Protein 6.7 g/dL (6.3-8.2)
[2021-07-10 09:26] LABS: Appearance Urine UA SL CLOUDY; Bilirubin Urine UA NEGATIVE (NEGATIVE); Color Urine UA YELLOW; Glucose Urine UA NEGATIVE (Negative); Ketones Urine UA NEGATIVE (NEGATIVE); Leukocyte Esterase Urine UA NEGATIVE (NEGATIVE); Nitrite Urine UA POSITIVE (Negative); Occult Blood Urine UA 2+ (Negative); Protein Urine UA NEGATIVE (Negative); Specific Gravity Urine UA 1.015 (1.000-1.035); Urobilinogen Urine UA 0.2 E.U./dL (0.2); pH Urine UA 6.5 (4.5-8.0)
[2021-07-10 09:33] LABS: Bacteria Urine Many (>30); RBC Urine 5-10/HPF (0-5/HPF)
[2021-07-10 14:59] LABS: WBC Urine None Seen (0-5/HPF)
[2021-07-11 14:08] LABS: Absolute CD 4 Helper 874 /uL (359-1519); Eosinophils 3 % (Not Estab.); Eosinophils (Absolute) 0.2 x10E3/uL (0.0-0.4); Hemoglobin 9.9 g/dL (13.0-17.7); Immature Granulocytes 0 % (Not Estab.); Lymphocytes 25 % (Not Estab.); Lymphocytes (Absolute) 2.3 x10E3/uL (0.7-3.1); MCHC 32.9 pg (26.6-33.0); MCHC 34.1 g/dL (31.5-35.7); MCV 96 fL (79-97); Monocytes 8 % (Not Estab.); Monocytes (Absolute) 0.7 x10E3/uL (0.1-0.9); Neutrophils 64 % (Not Estab.); Platelets 354 x10E3/uL (150-450); RDW 12.5 % (11.6-15.4); Red Blood Cells 3.01 x10E6/uL (4.14-5.80); White Blood Cells 9.2 x10E3/uL (3.4-10.8)
[2021-07-15 15:12] LABS: HIV-1 RNA by PCR 60 copies/mL (.); log 10 HIV-1 RNA 1.778 (.)
== END ==
PROVIDERS: PCP Family Medicine
DX: Z21 Asymptomatic human immunodeficiency virus [HIV] infection status (principal)
CPT/HCPCS: 36415; 80053; 81001; 85025; 86361; 87536

== ENCOUNTER → 2021-08-02 07:00 | Outpatient (CLI) | payer OTHER, MEDICAID, SELFPAY ==
[2021-08-02 07:46] LABS: Appearance Urine UA CLEAR; Bilirubin Urine UA NEGATIVE (NEGATIVE); Color Urine UA YELLOW; Glucose Urine UA NEGATIVE (Negative); Ketones Urine UA NEGATIVE (NEGATIVE); Leukocyte Esterase Urine UA NEGATIVE (NEGATIVE); Nitrite Urine UA POSITIVE (Negative); Occult Blood Urine UA 1+ (Negative); Protein Urine UA NEGATIVE (Negative); Specific Gravity Urine UA 1.015 (1.000-1.035); Urobilinogen Urine UA 0.2 E.U./dL (0.2)
[2021-08-02 07:59] LABS: Bacteria Urine Many (>30); Culture Indicated Urine Specimen Cultured; RBC Urine 1-5/HPF (0-5/HPF); WBC Urine 1-5/HPF (0-5/HPF)
[2021-08-02 08:24] LABS: Uric Acid 3.6 mg/dL (3.5-8.5)
[2021-08-08 21:55] LABS: HIV-1 RNA by PCR 60 copies/mL (.); log 10 HIV-1 RNA 1.778 (.)
[2021-08-09 19:16] LABS: 25 hydroxy Vitamin D 2 1.1 ng/mL (.); 25 hydroxy Vitamin D3 55 ng/mL (.)
== END ==
PROVIDERS: PCP Family Medicine
DX: Z21 Asymptomatic human immunodeficiency virus [HIV] infection status (principal)
CPT/HCPCS: 36415; 81001; 82306; 84550; 87077; 87086; 87186; 87536

== ENCOUNTER → 2021-08-14 06:50 | Outpatient (CLI) | payer OTHER, MEDICAID, SELFPAY ==
[2021-08-14 07:55] LABS: Appearance Urine UA SL CLOUDY; Bilirubin Urine UA NEGATIVE (NEGATIVE); Color Urine UA YELLOW; Glucose Urine UA TRACE g/dL (Negative); Ketones Urine UA NEGATIVE (NEGATIVE); Leukocyte Esterase Urine UA NEGATIVE (NEGATIVE); Nitrite Urine UA POSITIVE (Negative); Occult Blood Urine UA 1+ (Negative); Protein Urine UA NEGATIVE (Negative); Specific Gravity Urine UA 1.015 (1.000-1.035); Urobilinogen Urine UA 0.2 E.U./dL (0.2)
[2021-08-14 08:07] LABS: Bacteria Urine Many (>30); Culture Indicated Urine Specimen Cultured; RBC Urine 1-5/HPF (0-5/HPF); Squamous Epithelial Cell Urine 1-5 /HPF (0-5/HPF); WBC Urine 0-1/HPF (0-5/HPF)
== END ==
PROVIDERS: PCP Family Medicine; Referring Provider Internal Medicine Infectious Disease; Visit Provider Internal Medicine Infectious Disease
DX: Z21 Asymptomatic human immunodeficiency virus [HIV] infection status (principal)
CPT/HCPCS: 81001; 87077; 87086; 87147; 87186

== ENCOUNTER → 2021-09-05 06:55 | Outpatient (CLI) | payer OTHER, MEDICAID, SELFPAY ==
[2021-09-05 07:37] LABS: Add Manual Diff / Slide Review NO; Basophils Absolute Auto 0 /uL (0-100); Basophils Percent Auto 0.5 % (0-2); Eosinophils Absolute Auto 200 /uL (0-450); Eosinophils Percent Auto 3.7 % (2-4); Hematocrit 43.4 % (41-53); Lymphocytes Absolute Auto 2100 /uL (1100-4500); Lymphocytes Percent Auto 33.9 % (25-40); Mean Corpuscular HGB Conc 34.6 % (30-36); Mean Corpuscular Hemoglobin 33.6 PG (26-34); Mean Corpuscular Volume 97.2 fL (80-100); Monocytes Absolute Auto 400 /uL (0-900); Monocytes Percent Auto 6.6 % (3-14); Neutrophils Absolute Auto 3400 /uL (1500-7000); Neutrophils Percent Auto 55.3 % (50-75); Platelet Count 241 X10^3/uL (150-400); Red Blood Cell Count 4.46 X10^6/uL (4.5-5.9); Red Cell Distribution Width 13.1 % (11.6-14.8); White Blood Cell Count 6.2 X10^3/uL (4.5-11.0)
[2021-09-05 07:49] LABS: Alanine Aminotransferase 15 IU/L (<50); Albumin 3.8 g/dL (3.5-5.0); Albumin Globulin Ratio 1.6 (1.0-2.8); Alkaline Phosphatase 74 U/L (38-126); Aspartate Aminotransferase 24 IU/L (17-59); BUN Creatinine Ratio 17.8 (6-22); Bilirubin Total 0.3 mg/dL (0.2-1.3); Blood Urea Nitrogen 18 mg/dL (9-20); Calcium 8.7 mg/dL (8.4-10.2); Carbon Dioxide 28 mmol/L (22-32); Chloride 107 mmol/L (98-107); Estimated Glomerular Filt Rate > 60 mL/min (>60); Globulin 2.4 g/dL (1.7-4.1); Glucose 100 mg/dL (80-110); HEMOLYSIS < 15 (0-50); Potassium 4.1 mmol/L (3.4-5.1); Sodium 139 mmol/L (137-145); Total Protein 6.2 g/dL (6.3-8.2)
[2021-09-05 10:20] LABS: Appearance Urine UA SL CLOUDY; Bilirubin Urine UA NEGATIVE (NEGATIVE); Color Urine UA YELLOW; Glucose Urine UA NEGATIVE (Negative); Ketones Urine UA NEGATIVE (NEGATIVE); Leukocyte Esterase Urine UA NEGATIVE (NEGATIVE); Nitrite Urine UA POSITIVE (Negative); Occult Blood Urine UA 1+ (Negative); Protein Urine UA NEGATIVE (Negative); Urobilinogen Urine UA 0.2 E.U./dL (0.2); pH Urine UA 6.5 (4.5-8.0)
[2021-09-05 10:25] LABS: Bacteria Urine Many (>30); RBC Urine 1-5/HPF (0-5/HPF); WBC Urine None Seen (0-5/HPF)
[2021-09-05 10:26] LABS: Culture Indicated Urine Specimen Cultured
[2021-09-06 15:58] LABS: Absolute CD 4 Helper 760 /uL (359-1519); Basophils (Absolute) 0.1 x10E3/uL (0.0-0.2); Eosinophils 4 % (Not Estab.); Eosinophils (Absolute) 0.2 x10E3/uL (0.0-0.4); Hemacrit 45.8 % (37.5-51.0); Hemoglobin 15.4 g/dL (13.0-17.7); Immature Granulocytes 0 % (Not Estab.); Lymphocytes 33 % (Not Estab.); MCHC 33.1 pg (26.6-33.0); MCHC 33.6 g/dL (31.5-35.7); MCV 99 fL (79-97); Monocytes 7 % (Not Estab.); Monocytes (Absolute) 0.4 x10E3/uL (0.1-0.9); Neutrophils 55 % (Not Estab.); Neutrophils (Absolute) 3.4 x10E3/uL (1.4-7.0); Platelets 261 x10E3/uL (150-450); RDW 12.5 % (11.6-15.4); Red Blood Cells 4.65 x10E6/uL (4.14-5.80); White Blood Cells 6.1 x10E3/uL (3.4-10.8)
[2021-09-10 20:11] LABS: HIV-1 RNA by PCR 80 copies/mL (.); log 10 HIV-1 RNA 1.903 (.)
== END ==
PROVIDERS: PCP Family Medicine; Referring Provider Internal Medicine Infectious Disease; Visit Provider Internal Medicine Infectious Disease
DX: Z21 Asymptomatic human immunodeficiency virus [HIV] infection status (principal)
CPT/HCPCS: 36415; 80053; 81001; 85025; 86361; 87077; 87086; 87147; 87186; 87536

== ENCOUNTER → 2022-01-31 06:46 | Outpatient (CLI) | payer OTHER, MEDICAID, SELFPAY ==
[2022-01-31 11:31] LABS: Cholesterol 157 mg/dL (140-199); HDL Cholesterol 32 mg/dL (40-60); LDL Cholesterol Calculated 102 mg/dL (<100); Triglycerides 114 mg/dL (35-150)
== END ==
PROVIDERS: PCP Family Medicine; Referring Provider Family Medicine; Visit Provider Family Medicine
DX: Z12.5 Encounter for screening for malignant neoplasm of prostate (principal); Z13.220 Encounter for screening for lipoid disorders; Z72.0 Tobacco use
CPT/HCPCS: 36415; 80061; G0103

== ENCOUNTER → 2022-02-20 06:40 | Outpatient (CLI) | payer OTHER, MEDICAID, SELFPAY ==
[2022-02-27 14:48] LABS: HIV-1 RNA by PCR 60 copies/mL (.); log 10 HIV-1 RNA 1.778 (.)
== END ==
PROVIDERS: PCP Family Medicine; Referring Provider Internal Medicine Infectious Disease; Visit Provider Internal Medicine Infectious Disease
DX: Z21 Asymptomatic human immunodeficiency virus [HIV] infection status (principal)
CPT/HCPCS: 36415; 87536

== ENCOUNTER → 2022-03-01 06:52 | Outpatient (CLI) | payer OTHER, MEDICAID, SELFPAY ==
[2022-03-01 08:47] LABS: Add Manual Diff / Slide Review NO; Basophils Absolute Auto 0 /uL (0-100); Basophils Percent Auto 0.4 % (0-2); Eosinophils Absolute Auto 300 /uL (0-450); Eosinophils Percent Auto 3.1 % (2-4); Hematocrit 46.2 % (41-53); Hemoglobin 16.1 g/dL (13.5-17.5); Lymphocytes Absolute Auto 2100 /uL (1100-4500); Mean Corpuscular HGB Conc 34.9 % (30-36); Mean Corpuscular Hemoglobin 33.7 PG (26-34); Mean Corpuscular Volume 96.7 fL (80-100); Monocytes Absolute Auto 400 /uL (0-900); Monocytes Percent Auto 4.8 % (3-14); Neutrophils Absolute Auto 5600 /uL (1500-7000); Neutrophils Percent Auto 66.7 % (50-75); Platelet Count 257 X10^3/uL (150-400); Red Blood Cell Count 4.78 X10^6/uL (4.5-5.9); Red Cell Distribution Width 13.3 % (11.6-14.8); White Blood Cell Count 8.5 X10^3/uL (4.5-11.0)
[2022-03-01 09:03] LABS: Hemoglobin A1C% w Est Avg Glu 5.3 % (4.0-6.0)
[2022-03-01 09:17] LABS: Alanine Aminotransferase 14 IU/L (<50); Albumin 4.1 g/dL (3.5-5.0); Albumin Globulin Ratio 1.4 (1.0-2.8); Alkaline Phosphatase 74 U/L (38-126); Aspartate Aminotransferase 24 IU/L (17-59); BUN Creatinine Ratio 18.3 (6-22); Bilirubin Total 0.6 mg/dL (0.2-1.3); Blood Urea Nitrogen 19 mg/dL (9-20); Carbon Dioxide 30 mmol/L (22-32); Chloride 102 mmol/L (98-107); Estimated Glomerular Filt Rate > 60 mL/min (>60); Glucose 90 mg/dL (80-110); HEMOLYSIS < 15 (0-50); Potassium 4.1 mmol/L (3.4-5.1); Sodium 140 mmol/L (137-145); Total Protein 7.1 g/dL (6.3-8.2)
[2022-03-01 09:35] LABS: Appearance Urine UA CLEAR; Bilirubin Urine UA NEGATIVE (NEGATIVE); Color Urine UA YELLOW; Glucose Urine UA NEGATIVE (Negative); Ketones Urine UA NEGATIVE (NEGATIVE); Leukocyte Esterase Urine UA NEGATIVE (NEGATIVE); Nitrite Urine UA POSITIVE (Negative); Occult Blood Urine UA TRACE-LYSED (Negative); Protein Urine UA NEGATIVE (Negative); Specific Gravity Urine UA 1.015 (1.000-1.035); Urobilinogen Urine UA 0.2 E.U./dL (0.2); pH Urine UA 6.5 (4.5-8.0)
[2022-03-01 09:45] LABS: Amorphous Sediment Urine 1+; Bacteria Urine Few (2-10); Culture Indicated Urine Specimen Cultured; RBC Urine 0-1/HPF (0-5/HPF); Squamous Epithelial Cell Urine None Seen (0-5/HPF); WBC Urine 0-1/HPF (0-5/HPF)
[2022-03-02 06:56] LABS: RPR Screen Non Reactive (Non Reactive)
[2022-03-02 14:13] LABS: Absolute CD 4 Helper 805 /uL (359-1519); Basophils (Absolute) 0.1 x10E3/uL (0.0-0.2); Eosinophils 3 % (Not Estab.); Eosinophils (Absolute) 0.3 x10E3/uL (0.0-0.4); Hemacrit 44.1 % (37.5-51.0); Hemoglobin 15.4 g/dL (13.0-17.7); Immature Granulocytes 0 % (Not Estab.); Lymphocytes 25 % (Not Estab.); Lymphocytes (Absolute) 2.2 x10E3/uL (0.7-3.1); MCHC 33.6 pg (26.6-33.0); MCHC 34.9 g/dL (31.5-35.7); MCV 96 fL (79-97); Monocytes 6 % (Not Estab.); Monocytes (Absolute) 0.5 x10E3/uL (0.1-0.9); Neutrophils 65 % (Not Estab.); Neutrophils (Absolute) 5.8 x10E3/uL (1.4-7.0); Percent CD 4 Pos Lymph 36.6 % (30.8-58.5); Platelets 299 x10E3/uL (150-450); RDW 12.9 % (11.6-15.4); Red Blood Cells 4.59 x10E6/uL (4.14-5.80); White Blood Cells 8.8 x10E3/uL (3.4-10.8)
[2022-03-06 19:26] LABS: HIV-1 RNA by PCR <40 copies/mL (.)
== END ==
PROVIDERS: PCP Family Medicine; Referring Provider Internal Medicine Infectious Disease; Visit Provider Internal Medicine Infectious Disease
DX: Z21 Asymptomatic human immunodeficiency virus [HIV] infection status (principal)
CPT/HCPCS: 36415; 80053; 81001; 83036; 85025; 86361; 86592; 87077; 87086; 87147; 87186; 87536

== ENCOUNTER → 2022-03-01 08:39 | Outpatient (CLI) | payer OTHER, MEDICAID, SELFPAY ==
--- NOTE | 2022-03-01 | DI.CT.S_ITS ---
PROCEDURE: CT CHEST WO CON INDICATIONS: Nicotine dependence, cigarettes, uncomplicated TECHNIQUE: Noncontrast 2.0-2.5 mm thick sections acquired from the pulmonary apices to the posterior costophrenic angles. 7 mm thick axial MIP, and 5 mm coronal and sagittal reformats were then acquired. A low radiation dose technique was utilized. COMPARISON: CR, XR CHEST 1V, 11/27/2017, 16:09. FINDINGS: Image quality: Diagnostic, given the low radiation dose technique. Lungs and pleura: Small nodules are present bilaterally. Nodule 1: 3 mm; left upper lobe; series 3, image 59; solid and noncalcified. Nodule 2: 4 mm; left lower lobe; series 3, image 204; solid and noncalcified. Nodule 3: 3 mm; right middle lobe; series 3, image 151; subsolid. There are multiple calcified granulomas in right lung. No acute pulmonary opacity. No pleural effusion or pneumothorax. Mediastinum: Heart size is normal. No pericardial effusion. There are multiple calcified lymph nodes in mediastinum and right hilum. Thoracic aorta and central pulmonary arteries are normal in size. Esophagus is normal in caliber. No hiatal hernia. Bones and chest wall: No suspicious bony lesions. No vertebral body compression fractures. No axillary or supraclavicular adenopathy by size criteria. Thyroid gland is normal. Abdomen: Visualized upper abdomen solid organs and bowel loops appear normal in the absence of contrast. IMPRESSION: 1. Multiple small lung nodules are present bilaterally. LUNG-RADS 2; recommend annual screening lung CT in 12 months. 2. Remote granulomatous disease. Dictated by: Berna Berry M.D. on 03/01/2022 at 9:32 Approved by: Berna Berry M.D. on 03/01/2022 at 9:39
== END ==
PROVIDERS: PCP Family Medicine; Referring Provider Family Medicine; Visit Provider Family Medicine
DX: F17.210 Nicotine dependence, cigarettes, uncomplicated (principal); R91.8 Other nonspecific abnormal finding of lung field; Z21 Asymptomatic human immunodeficiency virus [HIV] infection status
CPT/HCPCS: 36415; 71250; 80053; 81001; 83036; 85025; 86361; 86592; 87077; 87086; 87147; 87186; 87536

== ENCOUNTER → 2022-05-15 13:52 | Outpatient (CLI) | payer OTHER, MEDICAID, SELFPAY ==
--- NOTE | 2022-05-15 13:53 | DI.RAD.S_ITS ---
PROCEDURE: XR SHOULDER LT MIN 2V INDICATIONS: pain, fell 7 days ago TECHNIQUE: 4 views of the shoulder were acquired. COMPARISON: None. FINDINGS: Bones: No fractures or dislocations. Jdhn-[id number] acromioclavicular joint osteoarthritic changes are seen. No suspicious bony lesions. Visualized ribs appear intact. Soft tissues: No suspicious soft tissue calcifications. IMPRESSION: No acute shoulder fracture or dislocation. Phyp-al-apanufnb acromioclavicular joint osteoarthritis. No gross soft tissue abnormalities. Dictated by: Junior Fernandez M.D. on 05/15/2022 at 14:48 Approved by: Junior Fernandez M.D. on 05/15/2022 at 14:48
== END ==
PROVIDERS: PCP Family Medicine; Referring Provider Family Medicine; Visit Provider Family Medicine
DX: S40.012A Contusion of left shoulder, initial encounter (principal); W19.XXXA Unspecified fall, initial encounter; M19.012 Primary osteoarthritis, left shoulder
CPT/HCPCS: 73030

== ENCOUNTER → 2022-05-27 06:48 | Outpatient (CLI) | payer OTHER, MEDICAID, SELFPAY ==
[2022-05-27 07:47] LABS: Appearance Urine UA CLEAR; Bilirubin Urine UA NEGATIVE (NEGATIVE); Color Urine UA YELLOW; Glucose Urine UA NEGATIVE (Negative); Ketones Urine UA NEGATIVE (NEGATIVE); Leukocyte Esterase Urine UA NEGATIVE (NEGATIVE); Nitrite Urine UA POSITIVE (Negative); Occult Blood Urine UA 3+ (Negative); Protein Urine UA NEGATIVE (Negative); Specific Gravity Urine UA 1.015 (1.000-1.035); Urobilinogen Urine UA 0.2 E.U./dL (0.2); pH Urine UA 6.5 (4.5-8.0)
[2022-05-27 07:52] LABS: Bacteria Urine Many (>30); RBC Urine 10-30/HPF (0-5/HPF); Squamous Epithelial Cell Urine 1-5 /HPF (0-5/HPF); WBC Urine 0-1/HPF (0-5/HPF)
[2022-05-27 07:53] LABS: Culture Indicated Urine Specimen Cultured
[2022-05-27 08:00] LABS: Add Manual Diff / Slide Review NO; Basophils Absolute Auto 0 /uL (0-100); Basophils Percent Auto 0.5 % (0-2); Eosinophils Absolute Auto 300 /uL (0-450); Eosinophils Percent Auto 3.3 % (2-4); Hematocrit 45.3 % (41-53); Hemoglobin 15.5 g/dL (13.5-17.5); Lymphocytes Absolute Auto 2300 /uL (1100-4500); Lymphocytes Percent Auto 26.8 % (25-40); Mean Corpuscular HGB Conc 34.2 % (30-36); Mean Corpuscular Volume 96.6 fL (80-100); Monocytes Absolute Auto 500 /uL (0-900); Monocytes Percent Auto 5.5 % (3-14); Neutrophils Absolute Auto 5500 /uL (1500-7000); Neutrophils Percent Auto 63.9 % (50-75); Platelet Count 287 X10^3/uL (150-400); Red Blood Cell Count 4.69 X10^6/uL (4.5-5.9); Red Cell Distribution Width 12.8 % (11.6-14.8); White Blood Cell Count 8.6 X10^3/uL (4.5-11.0)
[2022-05-27 08:24] LABS: Alanine Aminotransferase 21 IU/L (<50); Albumin 4.1 g/dL (3.5-5.0); Albumin Globulin Ratio 1.6 (1.0-2.8); Alkaline Phosphatase 94 U/L (38-126); Aspartate Aminotransferase 23 IU/L (17-59); BUN Creatinine Ratio 22.7 (6-22); Bilirubin Total 0.3 mg/dL (0.2-1.3); Blood Urea Nitrogen 22 mg/dL (9-20); Calcium 9.2 mg/dL (8.4-10.2); Carbon Dioxide 27 mmol/L (22-32); Chloride 102 mmol/L (98-107); Estimated Glomerular Filt Rate > 60 mL/min (>60); Globulin 2.5 g/dL (1.7-4.1); Glucose 97 mg/dL (80-110); HEMOLYSIS < 15 (0-50); Potassium 4.4 mmol/L (3.4-5.1); Sodium 138 mmol/L (137-145); Total Protein 6.6 g/dL (6.3-8.2)
[2022-06-05 12:20] LABS: HIV-1 RNA by PCR <40 copies/mL (.)
== END ==
PROVIDERS: PCP Family Medicine; Referring Provider Internal Medicine Infectious Disease; Visit Provider Internal Medicine Infectious Disease
DX: Z21 Asymptomatic human immunodeficiency virus [HIV] infection status (principal)
CPT/HCPCS: 36415; 80053; 81001; 85025; 87077; 87086; 87186; 87536

== ENCOUNTER → 2022-05-31 06:48 | Outpatient (CLI) | payer OTHER, MEDICAID, SELFPAY ==
[2022-05-31 09:01] LABS: Appearance Urine UA CLEAR; Bilirubin Urine UA NEGATIVE (NEGATIVE); Color Urine UA YELLOW; Glucose Urine UA NEGATIVE (Negative); Ketones Urine UA NEGATIVE (NEGATIVE); Leukocyte Esterase Urine UA NEGATIVE (NEGATIVE); Nitrite Urine UA POSITIVE (Negative); Occult Blood Urine UA 1+ (Negative); Protein Urine UA NEGATIVE (Negative); Urobilinogen Urine UA 0.2 E.U./dL (0.2)
[2022-05-31 09:10] LABS: Bacteria Urine Many (>30); Culture Indicated Urine Specimen Cultured; RBC Urine 1-5/HPF (0-5/HPF); WBC Urine None Seen (0-5/HPF)
[2022-05-31 09:33] LABS: Prostate Specific Antigen 0.738 ng/mL (0.10-4.00)
== END ==
PROVIDERS: PCP Family Medicine; Referring Provider Internal Medicine Infectious Disease; Visit Provider Internal Medicine Infectious Disease
DX: N41.9 Inflammatory disease of prostate, unspecified (principal)
CPT/HCPCS: 36415; 81001; 84153; 87040; 87077; 87086; 87147; 87186

== ENCOUNTER → 2022-08-14 06:45 | Outpatient (CLI) | payer OTHER, MEDICAID, SELFPAY ==
[2022-08-14 08:02] LABS: Add Manual Diff / Slide Review NO; Basophils Absolute Auto 0 /uL (0-100); Basophils Percent Auto 0.3 % (0-2); Eosinophils Absolute Auto 300 /uL (0-450); Hematocrit 46.6 % (41-53); Hemoglobin 16.1 g/dL (13.5-17.5); Lymphocytes Absolute Auto 2200 /uL (1100-4500); Lymphocytes Percent Auto 24.4 % (25-40); Mean Corpuscular HGB Conc 34.4 % (30-36); Mean Corpuscular Hemoglobin 33.1 PG (26-34); Mean Corpuscular Volume 96.1 fL (80-100); Monocytes Absolute Auto 500 /uL (0-900); Monocytes Percent Auto 5.7 % (3-14); Neutrophils Absolute Auto 6100 /uL (1500-7000); Neutrophils Percent Auto 66.6 % (50-75); Platelet Count 252 X10^3/uL (150-400); Red Blood Cell Count 4.85 X10^6/uL (4.5-5.9); Red Cell Distribution Width 13.3 % (11.6-14.8); White Blood Cell Count 9.1 X10^3/uL (4.5-11.0)
[2022-08-14 08:23] LABS: Alanine Aminotransferase 22 IU/L (<50); Albumin 4.1 g/dL (3.5-5.0); Albumin Globulin Ratio 1.4 (1.0-2.8); Alkaline Phosphatase 86 U/L (38-126); Aspartate Aminotransferase 28 IU/L (17-59); BUN Creatinine Ratio 17.8 (6-22); Bilirubin Total 0.4 mg/dL (0.2-1.3); Blood Urea Nitrogen 16 mg/dL (9-20); Calcium 8.8 mg/dL (8.4-10.2); Carbon Dioxide 31 mmol/L (22-32); Chloride 104 mmol/L (98-107); Cholesterol 172 mg/dL (140-199); Estimated Glomerular Filt Rate > 60 mL/min (>60); Globulin 2.9 g/dL (1.7-4.1); Glucose 97 mg/dL (80-110); HDL Cholesterol 38 mg/dL (40-60); HEMOLYSIS < 15 (0-50); LDL Cholesterol Calculated 111 mg/dL (<100); Potassium 4.5 mmol/L (3.4-5.1); Sodium 138 mmol/L (137-145); Triglycerides 113 mg/dL (35-150)
[2022-08-17 23:08] LABS: HIV-1 RNA by PCR <40 copies/mL (.)
== END ==
PROVIDERS: PCP Family Medicine; Referring Provider Internal Medicine Infectious Disease; Visit Provider Internal Medicine Infectious Disease
DX: Z21 Asymptomatic human immunodeficiency virus [HIV] infection status (principal)
CPT/HCPCS: 36415; 80053; 80061; 85025; 87536

== ENCOUNTER → 2022-08-23 06:51 | Outpatient (CLI) | payer OTHER, MEDICAID, SELFPAY ==
[2022-08-23 08:58] LABS: Appearance Urine UA CLEAR; Bilirubin Urine UA NEGATIVE (NEGATIVE); Color Urine UA YELLOW; Glucose Urine UA NEGATIVE (Negative); Ketones Urine UA NEGATIVE (NEGATIVE); Leukocyte Esterase Urine UA NEGATIVE (NEGATIVE); Nitrite Urine UA POSITIVE (Negative); Occult Blood Urine UA TRACE-INTACT (Negative); Protein Urine UA NEGATIVE (Negative); Specific Gravity Urine UA 1.025 (1.000-1.035); Urobilinogen Urine UA 0.2 E.U./dL (0.2)
[2022-08-23 09:49] LABS: Amorphous Sediment Urine 1+; Bacteria Urine Many (>30); Culture Indicated Urine Specimen Cultured; RBC Urine 0-1/HPF (0-5/HPF); Squamous Epithelial Cell Urine 0-1 /HPF (0-5/HPF); WBC Urine 0-1/HPF (0-5/HPF)
== END ==
PROVIDERS: PCP Family Medicine; Referring Provider Internal Medicine Infectious Disease; Visit Provider Internal Medicine Infectious Disease
DX: R82.71 Bacteriuria (principal)
CPT/HCPCS: 36415; 81001; 87040; 87077; 87086; 87186

== ENCOUNTER → 2022-11-20 07:38 | Outpatient (CLI) | payer OTHER, MEDICAID, SELFPAY ==
[2022-11-20 08:43] LABS: Add Manual Diff / Slide Review NO; Basophils Absolute Auto 0 /uL (0-100); Basophils Percent Auto 0.4 % (0-2); Eosinophils Absolute Auto 200 /uL (0-450); Eosinophils Percent Auto 2.8 % (2-4); Hematocrit 45.5 % (41-53); Hemoglobin 15.7 g/dL (13.5-17.5); Lymphocytes Absolute Auto 2000 /uL (1100-4500); Lymphocytes Percent Auto 24.6 % (25-40); Mean Corpuscular HGB Conc 34.4 % (30-36); Mean Corpuscular Hemoglobin 33.3 PG (26-34); Mean Corpuscular Volume 96.9 fL (80-100); Monocytes Absolute Auto 500 /uL (0-900); Monocytes Percent Auto 6.4 % (3-14); Neutrophils Absolute Auto 5200 /uL (1500-7000); Neutrophils Percent Auto 65.8 % (50-75); Platelet Count 262 X10^3/uL (150-400); Red Cell Distribution Width 13.4 % (11.6-14.8); White Blood Cell Count 7.9 X10^3/uL (4.5-11.0)
[2022-11-20 08:54] LABS: Appearance Urine UA CLEAR; Bilirubin Urine UA NEGATIVE (NEGATIVE); Color Urine UA YELLOW; Glucose Urine UA NEGATIVE (Negative); Ketones Urine UA NEGATIVE (NEGATIVE); Leukocyte Esterase Urine UA NEGATIVE (NEGATIVE); Nitrite Urine UA POSITIVE (Negative); Occult Blood Urine UA TRACE-INTACT (Negative); Protein Urine UA NEGATIVE (Negative); Urobilinogen Urine UA 0.2 E.U./dL (0.2)
[2022-11-20 08:56] LABS: Alanine Aminotransferase 23 IU/L (<50); Albumin 4.1 g/dL (3.5-5.0); Albumin Globulin Ratio 1.7 (1.0-2.8); Alkaline Phosphatase 89 U/L (38-126); Aspartate Aminotransferase 36 IU/L (17-59); BUN Creatinine Ratio 17.5 (6-22); Bilirubin Total 0.5 mg/dL (0.2-1.3); Blood Urea Nitrogen 17 mg/dL (9-20); Carbon Dioxide 28 mmol/L (22-32); Chloride 104 mmol/L (98-107); Estimated Glomerular Filt Rate > 60 mL/min (>60); Globulin 2.4 g/dL (1.7-4.1); Glucose 102 mg/dL (80-110); HEMOLYSIS < 15 (0-50); Potassium 4.3 mmol/L (3.4-5.1); Sodium 138 mmol/L (137-145); Total Protein 6.5 g/dL (6.3-8.2)
[2022-11-20 09:05] LABS: RBC Urine 1-5/HPF (0-5/HPF); WBC Urine 5-10/HPF (0-5/HPF)
[2022-11-20 09:06] LABS: Amorphous Sediment Urine 2+; Bacteria Urine Few (2-10); Culture Indicated Urine Specimen Cultured; Squamous Epithelial Cell Urine 0-1 /HPF (0-5/HPF)
[2022-11-21 14:36] LABS: Absolute CD 4 Helper 869 /uL (359-1519); Eosinophils 3 % (Not Estab.); Eosinophils (Absolute) 0.2 x10E3/uL (0.0-0.4); Hemacrit 46.3 % (37.5-51.0); Hemoglobin 16.3 g/dL (13.0-17.7); Immature Granulocytes 0 % (Not Estab.); Lymphocytes 28 % (Not Estab.); Lymphocytes (Absolute) 2.2 x10E3/uL (0.7-3.1); MCHC 34.3 pg (26.6-33.0); MCHC 35.2 g/dL (31.5-35.7); MCV 98 fL (79-97); Monocytes 6 % (Not Estab.); Monocytes (Absolute) 0.5 x10E3/uL (0.1-0.9); Neutrophils 63 % (Not Estab.); Percent CD 4 Pos Lymph 39.5 % (30.8-58.5); Platelets 245 x10E3/uL (150-450); Red Blood Cells 4.75 x10E6/uL (4.14-5.80); White Blood Cells 7.9 x10E3/uL (3.4-10.8)
[2022-11-26 15:06] LABS: HIV-1 RNA by PCR 50 copies/mL (.); log 10 HIV-1 RNA 1.699 (.)
== END ==
PROVIDERS: PCP Family Medicine; Referring Provider Internal Medicine Infectious Disease; Visit Provider Internal Medicine Infectious Disease
DX: Z21 Asymptomatic human immunodeficiency virus [HIV] infection status (principal)
CPT/HCPCS: 36415; 80053; 81001; 85025; 86361; 87077; 87086; 87147; 87186; 87536

== ENCOUNTER → 2023-02-25 06:31 | Outpatient (CLI) | payer OTHER, MEDICAID, SELFPAY ==
[2023-02-25 07:51] LABS: Appearance Urine UA SL CLOUDY; Bilirubin Urine UA NEGATIVE (NEGATIVE); Color Urine UA YELLOW; Glucose Urine UA NEGATIVE (Negative); Ketones Urine UA NEGATIVE (NEGATIVE); Leukocyte Esterase Urine UA NEGATIVE (NEGATIVE); Nitrite Urine UA POSITIVE (Negative); Occult Blood Urine UA TRACE-INTACT (Negative); Protein Urine UA NEGATIVE (Negative); Urobilinogen Urine UA 0.2 E.U./dL (0.2); pH Urine UA 6.5 (4.5-8.0)
[2023-02-25 08:10] LABS: Add Manual Diff / Slide Review NO; Basophils Absolute Auto 0 /uL (0-100); Basophils Percent Auto 0.6 % (0-2); Eosinophils Absolute Auto 200 /uL (0-450); Eosinophils Percent Auto 3.2 % (2-4); Hematocrit 47.7 % (41-53); Hemoglobin 16.5 g/dL (13.5-17.5); Lymphocytes Absolute Auto 2400 /uL (1100-4500); Lymphocytes Percent Auto 31.8 % (25-40); Mean Corpuscular HGB Conc 34.6 % (30-36); Mean Corpuscular Hemoglobin 33.2 PG (26-34); Mean Corpuscular Volume 95.7 fL (80-100); Monocytes Absolute Auto 500 /uL (0-900); Monocytes Percent Auto 6.7 % (3-14); Neutrophils Absolute Auto 4300 /uL (1500-7000); Neutrophils Percent Auto 57.7 % (50-75); Platelet Count 286 X10^3/uL (150-400); Red Blood Cell Count 4.99 X10^6/uL (4.5-5.9); Red Cell Distribution Width 13.2 % (11.6-14.8); White Blood Cell Count 7.5 X10^3/uL (4.5-11.0)
[2023-02-25 08:31] LABS: Bacteria Urine Many (>30); Culture Indicated Urine Specimen Cultured; RBC Urine 0-1/HPF (0-5/HPF); Squamous Epithelial Cell Urine None Seen (0-5/HPF); WBC Urine 0-1/HPF (0-5/HPF)
[2023-02-25 08:46] LABS: Alanine Aminotransferase 17 IU/L (<50); Albumin Globulin Ratio 1.5 (1.0-2.8); Alkaline Phosphatase 85 U/L (38-126); Aspartate Aminotransferase 22 IU/L (17-59); BUN Creatinine Ratio 17.4 (6-22); Bilirubin Total 0.4 mg/dL (0.2-1.3); Blood Urea Nitrogen 16 mg/dL (9-20); Calcium 9.5 mg/dL (8.4-10.2); Carbon Dioxide 25 mmol/L (22-32); Chloride 105 mmol/L (98-107); Estimated Glomerular Filt Rate > 60 mL/min (>60); Globulin 2.6 g/dL (1.7-4.1); Glucose 97 mg/dL (80-110); HEMOLYSIS < 15 (0-50); Potassium 4.2 mmol/L (3.4-5.1); Sodium 137 mmol/L (137-145); Total Protein 6.6 g/dL (6.3-8.2)
[2023-02-26 19:30] LABS: Absolute CD 4 Helper 1020 /uL (359-1519); Basophils (Absolute) 0.1 x10E3/uL (0.0-0.2); Eosinophils 3 % (Not Estab.); Eosinophils (Absolute) 0.2 x10E3/uL (0.0-0.4); Hemacrit 48.3 % (37.5-51.0); Hemoglobin 16.3 g/dL (13.0-17.7); Immature Granulocytes 0 % (Not Estab.); Lymphocytes 32 % (Not Estab.); Lymphocytes (Absolute) 2.4 x10E3/uL (0.7-3.1); MCHC 32.9 pg (26.6-33.0); MCHC 33.7 g/dL (31.5-35.7); MCV 97 fL (79-97); Monocytes 7 % (Not Estab.); Monocytes (Absolute) 0.5 x10E3/uL (0.1-0.9); NRBC 1 % (0 - 0); Neutrophils 57 % (Not Estab.); Neutrophils (Absolute) 4.3 x10E3/uL (1.4-7.0); Percent CD 4 Pos Lymph 42.5 % (30.8-58.5); Platelets 304 x10E3/uL (150-450); RDW 12.8 % (11.6-15.4); Red Blood Cells 4.96 x10E6/uL (4.14-5.80); White Blood Cells 7.5 x10E3/uL (3.4-10.8)
[2023-03-03 16:56] LABS: HIV-1 RNA by PCR 90 copies/mL (.); log 10 HIV-1 RNA 1.954 (.)
== END ==
PROVIDERS: PCP Family Medicine; Referring Provider Internal Medicine Infectious Disease; Visit Provider Internal Medicine Infectious Disease
DX: Z21 Asymptomatic human immunodeficiency virus [HIV] infection status (principal)
CPT/HCPCS: 36415; 80053; 81003; 81015; 85025; 86361; 87077; 87086; 87186; 87536

== ENCOUNTER → 2023-04-08 13:31 | Outpatient (CLI) | payer OTHER, MEDICAID, SELFPAY ==
[2023-04-14 19:08] LABS: HIV-1 RNA by PCR <40 copies/mL (.)
== END ==
PROVIDERS: PCP Family Medicine; Referring Provider Internal Medicine Infectious Disease; Visit Provider Internal Medicine Infectious Disease
DX: Z21 Asymptomatic human immunodeficiency virus [HIV] infection status (principal)
CPT/HCPCS: 36415; 87536

== ENCOUNTER → 2023-05-23 06:37 | Outpatient (CLI) | payer OTHER, MEDICAID, SELFPAY ==
[2023-05-23 07:45] LABS: Add Manual Diff / Slide Review NO; Basophils Absolute Auto 0 /uL (0-100); Basophils Percent Auto 0.5 % (0-2); Eosinophils Absolute Auto 300 /uL (0-450); Eosinophils Percent Auto 2.8 % (2-4); Hematocrit 45.9 % (41-53); Hemoglobin 15.8 g/dL (13.5-17.5); Lymphocytes Absolute Auto 2400 /uL (1100-4500); Lymphocytes Percent Auto 25.3 % (25-40); Mean Corpuscular HGB Conc 34.5 % (30-36); Mean Corpuscular Volume 95.7 fL (80-100); Monocytes Absolute Auto 600 /uL (0-900); Monocytes Percent Auto 6.1 % (3-14); Neutrophils Absolute Auto 6100 /uL (1500-7000); Neutrophils Percent Auto 65.3 % (50-75); Platelet Count 269 X10^3/uL (150-400); Red Blood Cell Count 4.79 X10^6/uL (4.5-5.9); Red Cell Distribution Width 12.8 % (11.6-14.8); White Blood Cell Count 9.4 X10^3/uL (4.5-11.0)
[2023-05-23 07:58] LABS: Alanine Aminotransferase 17 IU/L (<50); Albumin Globulin Ratio 1.4 (1.0-2.8); Alkaline Phosphatase 77 U/L (38-126); Bilirubin Total 0.5 mg/dL (0.2-1.3); Blood Urea Nitrogen 13 mg/dL (9-20); Calcium 9.2 mg/dL (8.4-10.2); Carbon Dioxide 28 mmol/L (22-32); Chloride 103 mmol/L (98-107); Cholesterol 148 mg/dL (140-199); Estimated Glomerular Filt Rate > 60 mL/min (>60); Globulin 2.9 g/dL (1.7-4.1); Glucose 91 mg/dL (80-110); HDL Cholesterol 35 mg/dL (40-60); HEMOLYSIS < 15 (0-50); LDL Cholesterol Calculated 92 mg/dL (<100); Potassium 4.3 mmol/L (3.4-5.1); Sodium 137 mmol/L (137-145); Total Protein 6.9 g/dL (6.3-8.2); Triglycerides 107 mg/dL (35-150)
[2023-05-23 08:29] LABS: Prostate Specific Antigen Scrn 0.845 ng/mL (0.1-4.0)
[2023-05-23 15:25] LABS: Aspartate Aminotransferase 30 IU/L (17-59)
== END ==
PROVIDERS: PCP Family Medicine; Referring Provider Family Medicine; Visit Provider Family Medicine
DX: Z13.220 Encounter for screening for lipoid disorders (principal); Z12.5 Encounter for screening for malignant neoplasm of prostate; B20 Human immunodeficiency virus [HIV] disease
CPT/HCPCS: 36415; 80053; 80061; 82306; 85025; G0103

== ENCOUNTER → 2023-06-11 06:58 | Outpatient (CLI) | payer OTHER, MEDICAID, SELFPAY ==
[2023-06-16 16:39] LABS: HIV-1 RNA by PCR <40 copies/mL (.)
== END ==
PROVIDERS: PCP Family Medicine; Referring Provider Internal Medicine Infectious Disease; Visit Provider Internal Medicine Infectious Disease
DX: Z21 Asymptomatic human immunodeficiency virus [HIV] infection status (principal)
CPT/HCPCS: 36415; 87536

== ENCOUNTER → 2023-12-01 14:30 | Outpatient (CLI) | payer OTHER, MEDICAID, SELFPAY ==
[2023-12-01 15:24] LABS: Add Manual Diff / Slide Review NO; Basophils Absolute Auto 0 /uL (0-100); Basophils Percent Auto 0.4 % (0-2); Eosinophils Absolute Auto 200 /uL (0-450); Hematocrit 44.3 % (41-53); Hemoglobin 15.4 g/dL (13.5-17.5); Lymphocytes Absolute Auto 2300 /uL (1100-4500); Lymphocytes Percent Auto 27.9 % (25-40); Mean Corpuscular HGB Conc 34.7 % (30-36); Mean Corpuscular Hemoglobin 33.8 PG (26-34); Mean Corpuscular Volume 97.4 fL (80-100); Monocytes Absolute Auto 500 /uL (0-900); Monocytes Percent Auto 6.1 % (3-14); Neutrophils Absolute Auto 5200 /uL (1500-7000); Neutrophils Percent Auto 63.6 % (50-75); Platelet Count 268 X10^3/uL (150-400); Red Blood Cell Count 4.55 X10^6/uL (4.5-5.9); White Blood Cell Count 8.2 X10^3/uL (4.5-11.0)
[2023-12-01 15:30] LABS: Bilirubin Urine UA NEGATIVE (NEGATIVE); Color Urine UA YELLOW; Glucose Urine UA NEGATIVE (Negative); Ketones Urine UA NEGATIVE (NEGATIVE); Leukocyte Esterase Urine UA NEGATIVE (NEGATIVE); Nitrite Urine UA POSITIVE (Negative); Occult Blood Urine UA TRACE-INTACT (Negative); Protein Urine UA NEGATIVE (Negative); Specific Gravity Urine UA 1.025 (1.000-1.035); pH Urine UA 5.5 (4.5-8.0)
[2023-12-01 15:31] LABS: Appearance Urine UA SL CLOUDY
[2023-12-01 15:41] LABS: Bacteria Urine Many (>30); Culture Indicated Urine Specimen Cultured; RBC Urine None Seen (0-5/HPF); Squamous Epithelial Cell Urine None Seen (0-5/HPF); Urine Volume 10mL (spun); WBC Urine 0-1/HPF (0-5/HPF)
[2023-12-01 15:58] LABS: Alanine Aminotransferase 15 IU/L (<50); Albumin 4.1 g/dL (3.5-5.0); Albumin Globulin Ratio 1.6 (1.0-2.8); Alkaline Phosphatase 85 U/L (38-126); Aspartate Aminotransferase 24 IU/L (17-59); BUN Creatinine Ratio 21.4 (6-22); Bilirubin Total 0.6 mg/dL (0.2-1.3); Blood Urea Nitrogen 21 mg/dL (9-20); Calcium 8.8 mg/dL (8.4-10.2); Carbon Dioxide 23 mmol/L (22-32); Chloride 108 mmol/L (98-107); Estimated Glomerular Filt Rate > 60 mL/min (>60); Globulin 2.5 g/dL (1.7-4.1); Glucose 88 mg/dL (80-110); HEMOLYSIS < 15 (0-50); Potassium 4.2 mmol/L (3.4-5.1); Sodium 139 mmol/L (137-145); Total Protein 6.6 g/dL (6.3-8.2)
== END ==
PROVIDERS: Family Provider Family Medicine; PCP Family Medicine; Referring Provider Internal Medicine Infectious Disease; Visit Provider Internal Medicine Infectious Disease
DX: Z21 Asymptomatic human immunodeficiency virus [HIV] infection status (principal)
CPT/HCPCS: 36415; 80053; 81001; 85025; 86361; 87086; 87536

== ENCOUNTER 2024-02-05 07:30 | Outpatient (RCR) | payer OTHER, MEDICAID, SELFPAY ==
--- NOTE | 2023-09-08 15:36 | PT.OIE ---
Current Diagnoses Other chronic pain (09/08/23) Pain in left shoulder (09/08/23) Other specified disorders of muscle (09/08/23) Weakness (09/08/23) Past Medical History (Last Reviewed 09/18/20 @ 15:54 by Abbie Cuellar DO) At risk for side effect of medication Chicken pox (~1964) Chronic left shoulder pain Establishing care with new doctor, encounter for HIV (human immunodeficiency virus infection) (~1992) MRSA (methicillin resistant Staphylococcus aureus) (~2006) Shoulder pain (~2017) Smoking greater than 40 pack years Tobacco abuse disorder Vision disorder Past Surgical History (Last Reviewed 09/18/20 @ 15:54 by Abbie Cuellar DO) Encounter for screening colonoscopy Visit Care Team Role Provider Type Fidel Chatterjee DO Family Provider Physician Primary Care Provider Specialty: [facility] Address: [address] [place] [address] Email: Loida Kaplan DO Attending Provider Physician Referring Provider Specialty: [facility] Address: [address] [place] [address], [address] [address] Email: [email or web address] Physical Therapy Initial Evaluation PT-OP-A Visit Information Start: 09/08/23 07:29 Freq: Status: Active Protocol: Document 09/08/23 08:15 NM (Rec: 09/08/23 09:07 NM [id number]) Out-Patient Physical Therapy Visit Information Visit Information Visit Type Initial Evaluation Visit Note 12 visits Visit Start Time 08:15 Visit Stop Time 09:00 Visit Number 1 Evaluation Information Evaluation Date 09/08/23 Precautions Precautions osteopenia PT-OP-B Current Condition Start: 09/08/23 07:29 Freq: Status: Active Protocol: Document 09/08/23 08:15 NM (Rec: 09/08/23 09:07 NM [id number]) Current Condition History of Current Condition Onset Date 1 year ago Current Complaints strength, mobility History of Current Condition Pt presents with L shoulder pain. He slipped on ice 1 year ago, landing on shoulder with arm by side. Pt states went to doctor who thinks rotator cuff and AC joint; states caution about freezing up. Reports improving gradually with full ROM, with a little hitch with elevation. He is concerned about weakness, especially to prevent damaging it further. In early July, he began having L sided neck pain to shoulder blade, which is also restricting motion; states improved with muscle relaxers. He can do everything but not smoothly. Pt states that he does not have numbness/ tingling and denies falling asleep, but states coldness compared to RUE. Pt has a past shoulder injury from football , a stinger that went away. Has hx of neck pain, improved with prednisone. Pt also reports that he has hx of instability, including subluxations or dislocations from his youth Prior Treatments and Tests 04/2022 Radiograph: no fracture/dislocation, mild AC joint OA Current Functional Impairments (Reported) Functional Limitations- ADL's lifting ~milk jug Functional Limitations- Mobility/Gait improved with grooming, dressing Functional Limitations- Other driving with L hand, mowing lawn (push mower) PT-OP-C Subjective Start: 09/08/23 07:29 Freq: Status: Active Protocol: Document 09/08/23 08:15 NM (Rec: 09/08/23 09:07 NM [id number]) OP-PT Subjective Patient Comments Patient Comments see hx above for pt report Patient Questionnaires Quick Dash- Upper Extremity Quick Dash UE Score 24 or 29.5% OP-PT Pain Assessment Pain Assessment Grid Paper Pain Assessment Grid Completed No Location L shoulder Pain Location Details superior shoulder to lateral shoulder Intensity 3 Scale Used Numeric (0 - 10) Description Aching,Sharp Frequency Intermittent Radiating Location scapula Pain Aggravating Factors ADL's,Activity,Lifting Pain Alleviating Factors Heat,Medication Other Pain Alleviating Factors no pain with sleep (used to sleep on L side) Home Pain Medication Use Pain Medications Used Yes: muscle relaxers, ibuprofen Pain Behaviors Pain Behaviors Holding Area PT-OP-E Functional Tests Start: 09/08/23 07:29 Freq: Status: Active Protocol: Document 09/08/23 08:15 NM (Rec: 09/08/23 09:07 NM [id number]) Functional Tests Apley's Scratch Test Action 1- Left ant shoulder Action 1- Right post scap Action 2- Left T4 Action 2- Right T4 Action 3- Left T9 Action 3- Right T10 PT-OP-F Manual Assessment Start: 09/08/23 07:29 Freq: Status: Active Protocol: Document 09/08/23 08:15 NM (Rec: 09/08/23 09:07 NM [id number]) Manual Assessments Soft Tissue Assessment Soft Tissue Mobility Assessment Decreased latissimus length. Tenderness of L rotator cuff, especially near insertion, and periscapular muscles. Demos 8 cm L medial scapular border from spine, 11 cm R scapular medial border to spine Joint Mobility Assessment Joint Mobility Assessment Demos forward placement of L humeral head. Full passive L shoulder ROM, limitations in L active shoulder ROM PT-OP-G Mobility & Gait Start: 09/08/23 07:29 Freq: Status: Active Protocol: Document 09/08/23 08:15 NM (Rec: 09/08/23 16:18 NM [id number]) OP Gait Assessment Gait Distance (Feet) 150 Comments Gait Comments Demos slightly antalgic gait, no trunk rotation or arm swing PT-OP-H Neuro Start: 09/08/23 07:29 Freq: Status: Active Protocol: Document 09/08/23 08:15 NM (Rec: 09/08/23 16:18 NM [id number]) Sensation Evaluation Comments Summary Comments Will assess formally in next session PT-OP-J Posture/Palpation/Skin Start: 09/08/23 07:29 Freq: Status: Active Protocol: Document 09/08/23 08:15 NM (Rec: 09/08/23 16:18 NM [id number]) Posture Evaluation Position Standing Head/C-Spine Posture Forward Head T-Spine Posture Increased Kyphosis Shoulder Posture (L) Forward,(R) Forward Scapula Posture (L) Protracted,(R) Protracted, (L) Tipped Arm Posture (L) Internally Rotated,(R) Internally Rotated Pelvis Posture Anteriorly Tilted Weight Distribution Balanced Hip Posture (L) Externally Rotated,(R) Externally Rotated Palpation Assessment Location L shoulder Palpation Details Tenderness: rotator cuff, latissimus, rhomboids, AC joint Tightness: latissimus, cervical spine paraspinals and upper trapezius/levator scapula Skin Assessment Other Assessments Skin Assessment Comments No swelling, change in temperature, or color of LUE compared to RUE at evaluation PT-OP-K Range of Motion Start: 09/08/23 07:29 Freq: Status: Active Protocol: Document 09/08/23 08:15 NM (Rec: 09/08/23 09:07 NM [id number]) Cervical Spine Range of Motion Cervical Spine Active Degrees Flexion 45 Extension 30 Rotation Left 70 Rotation Right 65 Lateral Flexion Left 40 Lateral Flexion Right 20 Comments Tightness and minimal L neck/ shoulder pain reproduced with R lateral flexion and rotation Shoulder Goniometric Range of Motion Shoulder Left PROM Flexion 170 Abduction 170 External Rotation at 90 degrees 70 Abduction Comments pain with IR passive, full passive ER/flex/ABD w/o pain Left Flexion 140 Extension 60 Abduction 155 External Rotation at 0 degrees Abduction 60 Internal Rotation 70 Comments 09/08/23: Demos [place] compensation , trunk rot with ER Right Flexion 150 Extension 60 Abduction 160 External Rotation at 0 degrees Abduction 80 Internal Rotation 76 PT-OP-L Special Tests Start: 09/08/23 07:29 Freq: Status: Active Protocol: Document 09/08/23 08:15 NM (Rec: 09/08/23 09:07 NM [id number]) Special Tests Cervical Spine Special Tests Spurling's Test Results - Shoulder Special Tests Apprehension-Relocation Test Results - IR/Horizontal ADD Impingement Test Results - Empty Can Test Results + Drop Arm Rotator Cuff Test Results - External Rotation Lag Sign Test Results - Lift-Off Rotator Cuff Test Results - Comments able to lift off but increased L shoulder tightness and discomfort Spence Víctor Impingement Test Results - Neer Impingement Test Results - AC Joint Compression Test Results + PT-OP-M Strength Start: 09/08/23 07:29 Freq: Status: Active Protocol: Document 09/08/23 08:15 NM (Rec: 09/08/23 09:07 NM [id number]) Shoulder Strength Shoulder Manual Muscle Testing Left Flexion 4- Good- Extension 4 Good Abduction (C5) 4 Good External Rotation 4- Good- Internal Rotation 4 Good Right Flexion 4+ Good+ Extension 4 Good Abduction (C5) 4+ Good+ Adduction 4+ Good+ External Rotation 4+ Good+ PT-OP-Q Treatments Start: 09/08/23 07:29 Freq: Status: Active Protocol: Document 09/08/23 08:15 NM (Rec: 09/08/23 16:18 NM [id number]) Therapeutic Exercises Supine Exercises B shoulder ER Supine Exercise Name 1. B shoulder ER w/ scapular retraction, 2. with flexion Side bilateral Resistance lvl 1 band Reps/Minutes 1. 1x10 with 3 hold, 2. trialed: 1x10 (diff. coord., inc L shldr pain) Comments pain free with B ER, good scapular retraction; min L RTC pain w/ flex pectoralis stretch Supine Exercise Name added to HEP; arms at 90 deg abduction Side bilateral Reps/Minutes 1x60 Comments reports good stretch in anterior chest, edu about towel roll w/ HEP Sitting Exercises scapular retractions Sitting Exercise Name added to HEP Side bilateral Reps/Minutes 1x10 with 3 hold Comments with posterior scapular setting PT-OP-T Assessment and Plan Start: 09/08/23 07:29 Freq: Status: Active Protocol: Document 09/08/23 08:15 NM (Rec: 09/08/23 09:07 NM [id number]) Physical Therapy Assessment Rehab Potential Rehabilitation Potential Good Evaluation Complexity Number of Personal Factors/Comorbidities 3 or More Number of Body Systems Impaired 1-2 Clinical Presentation at Evaluation Stable Impairments Impairments Activity Tolerance, Coordination,Edema,Functional Activities,Functional Mobility ,Gait,Integument,Pain,Posture, ROM,Sensation,Soft Tissue Mobility,Strength Goals Five Impairment strength Impairment L shoulder IR/abduction 4/5 Short Term Goal (STG) Pt will improve L shoulder IR and abduction strength to at least 4+/5 MMT in order to increase strength required for ADLs, lifting, recreational activities STG Duration 6 weeks Floor Mechanic Goal (LTG) Pt will improve L shoulder IR and abduction strength to at least 5/5 MMT in order to increase strength required for ADLs, lifting, recreational activities LTG Duration 12 weeks Four Impairment strength Impairment L shoulder flexion/ER 4-/5 MMT Short Term Goal (STG) Pt will improve L shoulder flexion/ER strength to at least 4/5 MMT in order to increase strength required for ADLs, lifting, recreational activities STG Duration 6 weeks Floor Mechanic Goal (LTG) Pt will improve L shoulder flexion/ER strength to at least 4+/5 MMT in order to increase strength required for ADLs, lifting, recreational activities LTG Duration 12 weeks Three Impairment AROM Impairment L shoulder flexion 140 deg, abduction 155 deg Short Term Goal (STG) Pt will improve L shoulder flexion to at least 155 deg and L shoulder abduction to at least 160 deg in order to demonstrate improved shoulder mobility for reaching and ADLs STG Duration 6 weeks Floor Mechanic Goal (LTG) Pt will improve L shoulder flexion and abduction to at least 165 deg in order to demonstrate improved shoulder mobility for reaching and ADLs LTG Duration 12 weeks Two Impairment AROM Impairment cervical spine rotation 65 deg R Short Term Goal (STG) Pt will improve R cervical spine rotation to at least 70 deg in order to demonstrate improved muscle length for visual scanning STG Duration 6 weeks Floor Mechanic Goal (LTG) Pt will improve R cervical spine rotation to at least 75 deg in order to demonstrate improved muscle length for visual scanning LTG Duration 12 weeks One Impairment HEP Impairment not performing HEP Short Term Goal (STG) Pt will report compliance with HEP at least 2-3x/wk in order to maximize progression with PT and promote independence with rehabilitation STG Duration 6 weeks Prison Goal (LTG) Pt will report compliance with HEP at least 3x/wk in order to transition into maintenance program upon discharge from PT LTG Duration 12 weeks Assessment Summary Assessment Pt is a 67 y.o. male presenting with L shoulder pain s/p fall on ice in 2021 with arm by side. Imaging reveals AC joint OA, but no acute fractures. Pt's symptom presentation consistent with shoulder OA and rotator cuff weakness; rotator cuff tear not suspected due to strength against resisted testing, however cannot be ruled out without further imaging. Pt has limitations in L shoulder AROM flexion, abduction, ER and IR. He also has decreased L shoulder strength globally, particularly into L shoulder flexion and ER. Pt's cervical spine ROM is limited globally as well, especially into rotation and lateral flexion. Pt does not have any numbness or tingling into L arm, but he does report occasionally colder temperature of L hand compared to R hand, which is a new onset. PT educated pt on exam findings and plan of care , initiating HEP to improve soft tissue length and begin periscapular strengthening. Pt has limited number of insurance visits; would benefit from 2x/wk, but will be seen 1x/wk in order to maximize visits. Depending on pt progression with PT, pt will be referred back for further assessment and imaging . Pt would benefit from skilled PT for L periscapular and rotator cuff strengthening , in addition to LUE mobility in order to improve symptom management and activity tolerance. Physical Therapy Plan Frequency and Duration Frequency of Treatment 1-2x/wk Duration of treatment (weeks) 12 Plan of Care Start Date 09/08/23 Plan of Care End Date 12/05/23 Therapeutic Interventions Therapeutic Interventions Balance Training,Gait Training ,Home Exercise Program,Joint Mobilizations,Manual Therapy, Neuromuscular Re-education, Patient/Caregiver Education, Self-Care/Home Management, Sensory Integration,Soft Tissue Mobilization,Taping, Therapeutic Activities, Therapeutic Exercises Modalities Cold Pack/Ice Massage,Electric Stimulation,Hot Packs, Ultrasound,Vasopneumatic Devices Next Visit Focus/Plan Next Note Type Treatment Note Next Visit Plan Sidelying flex/abd/ER, periscapular strengthening, p/ u plus vs serratus press Manual: STM, joint mobilizations Assess sensation next session
--- NOTE | 2023-09-10 12:14 | PT.OTN ---
Current Diagnoses Other chronic pain (09/10/23) Pain in left shoulder (09/10/23) Other specified disorders of muscle (09/10/23) Weakness (09/10/23) Physical Therapy Treatment Note PT-OP-A Visit Information Start: 09/08/23 07:29 Freq: Status: Active Protocol: Document 09/10/23 08:17 NM (Rec: 09/10/23 09:04 NM [id number]) Out-Patient Physical Therapy Visit Information Visit Information Visit Type Treatment Note Visit Note 12 visits Visit Start Time 08:18 Visit Stop Time 09:00 Visit Number 2 Evaluation Information Evaluation Date 09/08/23 PT-OP-B Current Condition Start: 09/08/23 07:29 Freq: Status: Active Protocol: Document 09/08/23 08:15 NM (Rec: 09/08/23 09:07 NM [id number]) Current Condition History of Current Condition Onset Date 1 year ago Current Complaints strength, mobility History of Current Condition Pt presents with L shoulder pain. He slipped on ice 1 year ago, landing on shoulder with arm by side. Pt states went to doctor who thinks rotator cuff and AC joint; states caution about freezing up. Reports improving gradually with full ROM, with a little hitch with elevation. He is concerned about weakness, especially to prevent damaging it further. In early July, he began having L sided neck pain to shoulder blade, which is also restricting motion; states improved with muscle relaxers. He can do everything but not smoothly. Pt states that he does not have numbness/ tingling and denies falling asleep, but states coldness compared to RUE. Pt has a past shoulder injury from football , a stinger that went away. Has hx of neck pain, improved with prednisone. Pt also reports that he has hx of instability, including subluxations or dislocations from his youth Prior Treatments and Tests 04/2022 Radiograph: no fracture/dislocation, mild AC joint OA Current Functional Impairments (Reported) Functional Limitations- ADL's lifting ~milk jug Functional Limitations- Mobility/Gait improved with grooming, dressing Functional Limitations- Other driving with L hand, mowing lawn (push mower) PT-OP-C Subjective Start: 09/08/23 07:29 Freq: Status: Active Protocol: Document 09/10/23 08:17 NM (Rec: 09/10/23 09:04 NM [id number]) OP-PT Subjective Patient Comments Patient Comments Pt reports no pain or soreness in L shoulder post evaluation . States HEP going well, likes scapular retractions. Continues to experience clicking in L shoulder with arm elevation and depression. Curious about strengthening because feels weak but does not want to harm shoulder PT-OP-E Functional Tests Start: 09/08/23 07:29 Freq: Status: Active Protocol: Document 09/08/23 08:15 NM (Rec: 09/08/23 09:07 NM [id number]) Functional Tests Apley's Scratch Test Action 1- Left ant shoulder Action 1- Right post scap Action 2- Left T4 Action 2- Right T4 Action 3- Left T9 Action 3- Right T10 PT-OP-F Manual Assessment Start: 09/08/23 07:29 Freq: Status: Active Protocol: Document 09/08/23 08:15 NM (Rec: 09/08/23 09:07 NM [id number]) Manual Assessments Soft Tissue Assessment Soft Tissue Mobility Assessment Decreased latissimus length. Tenderness of L rotator cuff, especially near insertion, and periscapular muscles. Demos 8 cm L medial scapular border from spine, 11 cm R scapular medial border to spine Joint Mobility Assessment Joint Mobility Assessment Demos forward placement of L humeral head. Full passive L shoulder ROM, limitations in L active shoulder ROM PT-OP-G Mobility & Gait Start: 09/08/23 07:29 Freq: Status: Active Protocol: Document 09/08/23 08:15 NM (Rec: 09/08/23 16:18 NM [id number]) OP Gait Assessment Gait Distance (Feet) 150 Comments Gait Comments Demos slightly antalgic gait, no trunk rotation or arm swing PT-OP-H Neuro Start: 09/08/23 07:29 Freq: Status: Active Protocol: Document 09/08/23 08:15 NM (Rec: 09/08/23 16:18 NM [id number]) Sensation Evaluation Comments Summary Comments Will assess formally in next session PT-OP-J Posture/Palpation/Skin Start: 09/08/23 07:29 Freq: Status: Active Protocol: Document 09/08/23 08:15 NM (Rec: 09/08/23 16:18 NM [id number]) Posture Evaluation Position Standing Head/C-Spine Posture Forward Head T-Spine Posture Increased Kyphosis Shoulder Posture (L) Forward,(R) Forward Scapula Posture (L) Protracted,(R) Protracted, (L) Tipped Arm Posture (L) Internally Rotated,(R) Internally Rotated Pelvis Posture Anteriorly Tilted Weight Distribution Balanced Hip Posture (L) Externally Rotated,(R) Externally Rotated Palpation Assessment Location L shoulder Palpation Details Tenderness: rotator cuff, latissimus, rhomboids, AC joint Tightness: latissimus, cervical spine paraspinals and upper trapezius/levator scapula Skin Assessment Other Assessments Skin Assessment Comments No swelling, change in temperature, or color of LUE compared to RUE at evaluation PT-OP-K Range of Motion Start: 09/08/23 07:29 Freq: Status: Active Protocol: Document 09/08/23 08:15 NM (Rec: 09/08/23 09:07 NM [id number]) Cervical Spine Range of Motion Cervical Spine Active Degrees Flexion 45 Extension 30 Rotation Left 70 Rotation Right 65 Lateral Flexion Left 40 Lateral Flexion Right 20 Comments Tightness and minimal L neck/ shoulder pain reproduced with R lateral flexion and rotation Shoulder Goniometric Range of Motion Shoulder Left PROM Flexion 170 Abduction 170 External Rotation at 90 degrees 70 Abduction Comments pain with IR passive, full passive ER/flex/ABD w/o pain Left Flexion 140 Extension 60 Abduction 155 External Rotation at 0 degrees Abduction 60 Internal Rotation 70 Comments 09/08/23: Demos [place] compensation , trunk rot with ER Right Flexion 150 Extension 60 Abduction 160 External Rotation at 0 degrees Abduction 80 Internal Rotation 76 PT-OP-L Special Tests Start: 09/08/23 07:29 Freq: Status: Active Protocol: Document 09/08/23 08:15 NM (Rec: 09/08/23 09:07 NM [id number]) Special Tests Cervical Spine Special Tests Spurling's Test Results - Shoulder Special Tests Apprehension-Relocation Test Results - IR/Horizontal ADD Impingement Test Results - Empty Can Test Results + Drop Arm Rotator Cuff Test Results - External Rotation Lag Sign Test Results - Lift-Off Rotator Cuff Test Results - Comments able to lift off but increased L shoulder tightness and discomfort Spence Víctor Impingement Test Results - Neer Impingement Test Results - AC Joint Compression Test Results + PT-OP-M Strength Start: 09/08/23 07:29 Freq: Status: Active Protocol: Document 09/08/23 08:15 NM (Rec: 09/08/23 09:07 NM [id number]) Shoulder Strength Shoulder Manual Muscle Testing Left Flexion 4- Good- Extension 4 Good Abduction (C5) 4 Good External Rotation 4- Good- Internal Rotation 4 Good Right Flexion 4+ Good+ Extension 4 Good Abduction (C5) 4+ Good+ Adduction 4+ Good+ External Rotation 4+ Good+ PT-OP-Q Treatments Start: 09/08/23 07:29 Freq: Status: Active Protocol: Document 09/10/23 08:17 NM (Rec: 09/10/23 09:04 NM [id number]) Therapeutic Exercises Supine Exercises serratus punch Supine Exercise Name added to HEP Side left Resistance AROM Reps/Minutes 1x10 Comments cued no [place] compensation; tactile cue for protraction, pnfree set scap post B shoulder ER Supine Exercise Name B shoulder ER w/ scapular retraction Side bilateral Resistance lvl 1 band Reps/Minutes 1x10 with 3 hold (but less L ER AROM) Comments pain free with B ER, good scapular retraction; cued elbows by side pectoralis stretch Supine Exercise Name arms at 45 deg abd Side bilateral Equipment Used 1/2 foam roller Reps/Minutes 1x60 Comments reports good stretch in anterior chest; edu 90 deg abd only if flat surface Prone Exercises periscapular Prone Exercise Name I, T with elbow flexed, row ( added to HEP) Side left Resistance AROM Reps/Minutes 1x10 ea Comments pain free; cued no [place] compensation, only scap mvmt, improved form w/ reps Sidelying Exercises ER Sidelying Exercise Name trial next session abduction Side left Equipment Used with inf glide, resistance w/ eccentric lowering then pnfree Reps/Minutes 1x10 Comments 120 deg w/o pain abduction, cued post scap set/slight retract for mechanics flexion Side left Reps/Minutes 1x5 w/ popping Comments cued post scap set; inc lat tightness and RC pain, d/c at this time Manual Therapy Treatment Soft Tissue Mobilization L shoulder Body Location periscapular, rotator cuff, lat, LH biceps Mobilization Type Rolling,Strumming,Sustained Pressure Intensity/Depth Moderate Body Position Sidelying Comments Mild tenderness along L rotator cuff and periscapulars . Performed moderate rolling, sustained pressure at medial and lateral scapular borders. Reports looser post manual tx Education on self soft tissue mobilization with ball in pillow case as part of HEP but did not trial in session, edu to use with heat for soft tissue relaxation Joint Mobilizations L scapulothoracic Direction ADD/dep, protract/retract, elevation Grade III Body Position Sidelying Reps/Duration 1x12 ea Comments Performed with sidelying abduction and flexion, protraction/retraction. PROM> AAROM, cueing for posterior scapular setting. Pain free mobilization. Less adduction/ retraction/depression L GHJ Direction posterior, inferior Grade III Body Position Supine Reps/Duration 4x30 ea Comments For improved joint mobility. From 45 to 90 deg abd for posterior glide, biased into ER. Reports feels better with posterior glide pressure. Decrease inferior glide, improved with mobilization and able to move into more abduction Self-Care/Home Management Treatment Education Patient Education Home Exercise Program Other Education HEP: prone shoulder ext/I, prone T with arm flexed, prone row, serratus punch. Education on scapular motion vs arm motion with prone exercises PT-OP-T Assessment and Plan Start: 09/08/23 07:29 Freq: Status: Active Protocol: Document 09/10/23 08:17 NM (Rec: 09/10/23 09:04 NM [id number]) Physical Therapy Assessment Goals Five Impairment strength Impairment L shoulder IR/abduction 4/5 Short Term Goal (STG) Pt will improve L shoulder IR and abduction strength to at least 4+/5 MMT in order to increase strength required for ADLs, lifting, recreational activities STG Duration 6 weeks Saw Cleaner Goal (LTG) Pt will improve L shoulder IR and abduction strength to at least 5/5 MMT in order to increase strength required for ADLs, lifting, recreational activities LTG Duration 12 weeks Four Impairment strength Impairment L shoulder flexion/ER 4-/5 MMT Short Term Goal (STG) Pt will improve L shoulder flexion/ER strength to at least 4/5 MMT in order to increase strength required for ADLs, lifting, recreational activities STG Duration 6 weeks Jail Goal (LTG) Pt will improve L shoulder flexion/ER strength to at least 4+/5 MMT in order to increase strength required for ADLs, lifting, recreational activities LTG Duration 12 weeks Three Impairment AROM Impairment L shoulder flexion 140 deg, abduction 155 deg Short Term Goal (STG) Pt will improve L shoulder flexion to at least 155 deg and L shoulder abduction to at least 160 deg in order to demonstrate improved shoulder mobility for reaching and ADLs STG Duration 6 weeks Saw Cleaner Goal (LTG) Pt will improve L shoulder flexion and abduction to at least 165 deg in order to demonstrate improved shoulder mobility for reaching and ADLs LTG Duration 12 weeks Two Impairment AROM Impairment cervical spine rotation 65 deg R Short Term Goal (STG) Pt will improve R cervical spine rotation to at least 70 deg in order to demonstrate improved muscle length for visual scanning STG Duration 6 weeks Jail Goal (LTG) Pt will improve R cervical spine rotation to at least 75 deg in order to demonstrate improved muscle length for visual scanning LTG Duration 12 weeks One Impairment HEP Impairment not performing HEP Short Term Goal (STG) Pt will report compliance with HEP at least 2-3x/wk in order to maximize progression with PT and promote independence with rehabilitation STG Duration 6 weeks Jail Goal (LTG) Pt will report compliance with HEP at least 3x/wk in order to transition into maintenance program upon discharge from PT LTG Duration 12 weeks Assessment Summary Assessment Pt tolerated session well. He does not have increased pain during session, but does demonstrate clicking and popping of L shoulder with several exercises. Also demonstrates 1 large reduction (no subluxation felt) with arm depression during abduction. Pt has tendency for forward shoulder posture, decreased scapular mobility. Education and emphasis on posterior humerus/scapular positioning and scapular control during session. Pt responds well to manual treatment, especially to mobilizations. He has decreased inferior glide of L humerus, improved with mobilization. Initiated prone periscapular strengthening to offload L rotator cuff and improve postural/scapular control. Pt would benefit from skilled PT for periscapular and gentle rotator cuff strengthening in order to improve pain management and ability to perform ADLs. Physical Therapy Plan Frequency and Duration Frequency of Treatment 1-2x/wk Duration of treatment (weeks) 12 Plan of Care Start Date 09/08/23 Plan of Care End Date 12/05/23 Therapeutic Interventions Therapeutic Interventions Balance Training,Gait Training ,Home Exercise Program,Joint Mobilizations,Manual Therapy, Neuromuscular Re-education, Patient/Caregiver Education, Self-Care/Home Management, Sensory Integration,Soft Tissue Mobilization,Taping, Therapeutic Activities, Therapeutic Exercises Modalities Cold Pack/Ice Massage,Electric Stimulation,Hot Packs, Ultrasound,Vasopneumatic Devices Next Visit Focus/Plan Next Note Type Treatment Note Next Visit Plan Sidelying flex/abd/ER, periscapular strengthening, p/ u plus or serratus with weight , trial row/low row, arm slide with lift off Manual: STM, joint mobilizations Assess sensation next session
--- NOTE | 2023-09-15 12:06 | PT.OTN ---
Current Diagnoses Other chronic pain (09/15/23) Pain in left shoulder (09/15/23) Other specified disorders of muscle (09/15/23) Weakness (09/15/23) Physical Therapy Treatment Note PT-OP-A Visit Information Start: 09/08/23 07:29 Freq: Status: Active Protocol: Document 09/15/23 08:20 NM (Rec: 09/15/23 09:05 NM [id number]) Out-Patient Physical Therapy Visit Information Visit Information Visit Type Treatment Note Visit Note 12 visits Visit Start Time 08:20 Visit Stop Time 09:00 Visit Number 3 Evaluation Information Evaluation Date 09/08/23 Precautions Precautions osteopenia PT-OP-B Current Condition Start: 09/08/23 07:29 Freq: Status: Active Protocol: Document 09/08/23 08:15 NM (Rec: 09/08/23 09:07 NM [id number]) Current Condition History of Current Condition Onset Date 1 year ago Current Complaints strength, mobility History of Current Condition Pt presents with L shoulder pain. He slipped on ice 1 year ago, landing on shoulder with arm by side. Pt states went to doctor who thinks rotator cuff and AC joint; states caution about freezing up. Reports improving gradually with full ROM, with a little hitch with elevation. He is concerned about weakness, especially to prevent damaging it further. In early July, he began having L sided neck pain to shoulder blade, which is also restricting motion; states improved with muscle relaxers. He can do everything but not smoothly. Pt states that he does not have numbness/ tingling and denies falling asleep, but states coldness compared to RUE. Pt has a past shoulder injury from football , a stinger that went away. Has hx of neck pain, improved with prednisone. Pt also reports that he has hx of instability, including subluxations or dislocations from his youth Prior Treatments and Tests 04/2022 Radiograph: no fracture/dislocation, mild AC joint OA Current Functional Impairments (Reported) Functional Limitations- ADL's lifting ~milk jug Functional Limitations- Mobility/Gait improved with grooming, dressing Functional Limitations- Other driving with L hand, mowing lawn (push mower) PT-OP-C Subjective Start: 09/08/23 07:29 Freq: Status: Active Protocol: Document 09/15/23 08:20 NM (Rec: 09/15/23 09:05 NM [id number]) OP-PT Subjective Patient Comments Patient Comments Pt reports that exercsies feel good, feels less likely to fall out. States less pain. Occasionally pain with serratus punch. States difficulty with prone activities with arm off bed but states no pain PT-OP-E Functional Tests Start: 09/08/23 07:29 Freq: Status: Active Protocol: Document 09/08/23 08:15 NM (Rec: 09/08/23 09:07 NM [id number]) Functional Tests Apley's Scratch Test Action 1- Left ant shoulder Action 1- Right post scap Action 2- Left T4 Action 2- Right T4 Action 3- Left T9 Action 3- Right T10 PT-OP-F Manual Assessment Start: 09/08/23 07:29 Freq: Status: Active Protocol: Document 09/08/23 08:15 NM (Rec: 09/08/23 09:07 NM [id number]) Manual Assessments Soft Tissue Assessment Soft Tissue Mobility Assessment Decreased latissimus length. Tenderness of L rotator cuff, especially near insertion, and periscapular muscles. Demos 8 cm L medial scapular border from spine, 11 cm R scapular medial border to spine Joint Mobility Assessment Joint Mobility Assessment Demos forward placement of L humeral head. Full passive L shoulder ROM, limitations in L active shoulder ROM PT-OP-G Mobility & Gait Start: 09/08/23 07:29 Freq: Status: Active Protocol: Document 09/08/23 08:15 NM (Rec: 09/08/23 16:18 NM [id number]) OP Gait Assessment Gait Distance (Feet) 150 Comments Gait Comments Demos slightly antalgic gait, no trunk rotation or arm swing PT-OP-H Neuro Start: 09/08/23 07:29 Freq: Status: Active Protocol: Document 09/08/23 08:15 NM (Rec: 09/08/23 16:18 NM [id number]) Sensation Evaluation Comments Summary Comments Will assess formally in next session PT-OP-J Posture/Palpation/Skin Start: 09/08/23 07:29 Freq: Status: Active Protocol: Document 09/08/23 08:15 NM (Rec: 09/08/23 16:18 NM [id number]) Posture Evaluation Position Standing Head/C-Spine Posture Forward Head T-Spine Posture Increased Kyphosis Shoulder Posture (L) Forward,(R) Forward Scapula Posture (L) Protracted,(R) Protracted, (L) Tipped Arm Posture (L) Internally Rotated,(R) Internally Rotated Pelvis Posture Anteriorly Tilted Weight Distribution Balanced Hip Posture (L) Externally Rotated,(R) Externally Rotated Palpation Assessment Location L shoulder Palpation Details Tenderness: rotator cuff, latissimus, rhomboids, AC joint Tightness: latissimus, cervical spine paraspinals and upper trapezius/levator scapula Skin Assessment Other Assessments Skin Assessment Comments No swelling, change in temperature, or color of LUE compared to RUE at evaluation PT-OP-K Range of Motion Start: 09/08/23 07:29 Freq: Status: Active Protocol: Document 09/08/23 08:15 NM (Rec: 09/08/23 09:07 NM [id number]) Cervical Spine Range of Motion Cervical Spine Active Degrees Flexion 45 Extension 30 Rotation Left 70 Rotation Right 65 Lateral Flexion Left 40 Lateral Flexion Right 20 Comments Tightness and minimal L neck/ shoulder pain reproduced with R lateral flexion and rotation Shoulder Goniometric Range of Motion Shoulder Left PROM Flexion 170 Abduction 170 External Rotation at 90 degrees 70 Abduction Comments pain with IR passive, full passive ER/flex/ABD w/o pain Left Flexion 140 Extension 60 Abduction 155 External Rotation at 0 degrees Abduction 60 Internal Rotation 70 Comments 09/08/23: Demos [place] compensation , trunk rot with ER Right Flexion 150 Extension 60 Abduction 160 External Rotation at 0 degrees Abduction 80 Internal Rotation 76 PT-OP-L Special Tests Start: 09/08/23 07:29 Freq: Status: Active Protocol: Document 09/08/23 08:15 NM (Rec: 09/08/23 09:07 NM [id number]) Special Tests Cervical Spine Special Tests Spurling's Test Results - Shoulder Special Tests Apprehension-Relocation Test Results - IR/Horizontal ADD Impingement Test Results - Empty Can Test Results + Drop Arm Rotator Cuff Test Results - External Rotation Lag Sign Test Results - Lift-Off Rotator Cuff Test Results - Comments able to lift off but increased L shoulder tightness and discomfort Spence Víctor Impingement Test Results - Neer Impingement Test Results - AC Joint Compression Test Results + PT-OP-M Strength Start: 09/08/23 07:29 Freq: Status: Active Protocol: Document 09/08/23 08:15 NM (Rec: 09/08/23 09:07 NM [id number]) Shoulder Strength Shoulder Manual Muscle Testing Left Flexion 4- Good- Extension 4 Good Abduction (C5) 4 Good External Rotation 4- Good- Internal Rotation 4 Good Right Flexion 4+ Good+ Extension 4 Good Abduction (C5) 4+ Good+ Adduction 4+ Good+ External Rotation 4+ Good+ PT-OP-Q Treatments Start: 09/08/23 07:29 Freq: Status: Active Protocol: Document 09/15/23 08:20 NM (Rec: 09/15/23 09:05 NM [id number]) Therapeutic Exercises Supine Exercises serratus punch Supine Exercise Name HEP review Side left Resistance AROM Reps/Minutes 2x10 Comments cued no [place] compensation; tactile cue for protraction, pnfree today Prone Exercises periscapular Prone Exercise Name Reviewed: I, T with elbow flexed Side left Resistance AROM Equipment Used towel roll under humerus ( added for HEP) Reps/Minutes 1x10 ea Comments pain free; cued no [place] compensation, only scap mvmt, improved form w/ reps Sidelying Exercises ER Sidelying Exercise Name trialed in PT Side left Equipment Used towel between elbow Reps/Minutes 1x10 Comments pain free, improved ROM with scap retract abduction Side left Equipment Used prn long axis distraction w/ lowering, cued controlled eccentric lowering Reps/Minutes 1x10 Comments pain free; slight popping, improved scap/ROM; post manual tx, improve glide flexion Side left Reps/Minutes 1x8 Comments cued post scap, less pain today, but limited to 100 deg, still painful Standing Exercises rows Side bilateral Resistance lvl 3 band Reps/Minutes 1x20 Comments pain free low rows Standing Exercise Name shoulder ext Side bilateral Resistance lvl 2 band Reps/Minutes 2x10 Comments pain free in L shoulder, cued scap motion, no [place] comp Manual Therapy Treatment Soft Tissue Mobilization L shoulder Body Location periscapular, rotator cuff, lat, UT/LS Mobilization Type Rolling,Strumming,Sustained Pressure Intensity/Depth Moderate Body Position Sidelying Comments No tenderness along L rotator cuff and periscapulars. Performed moderate rolling, sustained pressure at medial and lateral scapular borders. Reports looser post manual tx Reviewed self soft tissue mobilization with ball in pillow case as part of HEP but did not trial in session, edu to use with heat for soft tissue relaxation Joint Mobilizations L scapulothoracic Direction ADD/dep, protract/retract, elevation Grade III Body Position Sidelying Reps/Duration 1x12 ea Comments Performed with sidelying abduction and flexion, protraction/retraction. PROM> AAROM, cueing for posterior scapular setting. Pain free mobilization. Less adduction/ retraction/depression L GHJ Direction posterior, inferior Grade III Body Position Supine Reps/Duration 6x30 ea Comments For improved joint mobility. From 45 to 90 deg abd for posterior glide, biased into ER. Reports feels better with posterior glide pressure. Decrease inferior glide, improved with mobilization and able to move into more abduction with less pain and improved mobility (did not formally measure) Self-Care/Home Management Treatment Education Patient Education Home Exercise Program Other Education HEP: low row, mid row with band PT-OP-T Assessment and Plan Start: 09/08/23 07:29 Freq: Status: Active Protocol: Document 09/15/23 08:20 NM (Rec: 09/15/23 09:05 NM [id number]) Physical Therapy Assessment Goals Five Impairment strength Impairment L shoulder IR/abduction 4/5 Short Term Goal (STG) Pt will improve L shoulder IR and abduction strength to at least 4+/5 MMT in order to increase strength required for ADLs, lifting, recreational activities STG Duration 6 weeks Veterinary Technician Goal (LTG) Pt will improve L shoulder IR and abduction strength to at least 5/5 MMT in order to increase strength required for ADLs, lifting, recreational activities LTG Duration 12 weeks Four Impairment strength Impairment L shoulder flexion/ER 4-/5 MMT Short Term Goal (STG) Pt will improve L shoulder flexion/ER strength to at least 4/5 MMT in order to increase strength required for ADLs, lifting, recreational activities STG Duration 6 weeks Assisted Goal (LTG) Pt will improve L shoulder flexion/ER strength to at least 4+/5 MMT in order to increase strength required for ADLs, lifting, recreational activities LTG Duration 12 weeks Three Impairment AROM Impairment L shoulder flexion 140 deg, abduction 155 deg Short Term Goal (STG) Pt will improve L shoulder flexion to at least 155 deg and L shoulder abduction to at least 160 deg in order to demonstrate improved shoulder mobility for reaching and ADLs STG Duration 6 weeks Assisted Goal (LTG) Pt will improve L shoulder flexion and abduction to at least 165 deg in order to demonstrate improved shoulder mobility for reaching and ADLs LTG Duration 12 weeks Two Impairment AROM Impairment cervical spine rotation 65 deg R Short Term Goal (STG) Pt will improve R cervical spine rotation to at least 70 deg in order to demonstrate improved muscle length for visual scanning STG Duration 6 weeks Veterinary Technician Goal (LTG) Pt will improve R cervical spine rotation to at least 75 deg in order to demonstrate improved muscle length for visual scanning LTG Duration 12 weeks One Impairment HEP Impairment not performing HEP Short Term Goal (STG) Pt will report compliance with HEP at least 2-3x/wk in order to maximize progression with PT and promote independence with rehabilitation STG Duration 6 weeks Veterinary Technician Goal (LTG) Pt will report compliance with HEP at least 3x/wk in order to transition into maintenance program upon discharge from PT LTG Duration 12 weeks Assessment Summary Assessment Pt tolerated session well without increase in L shoulder pain. He demonstrates improved scapulohumeral rhythm , scapular control, and inferior glide. Pt continues to tolerate manual treatment well, especially with posterior and inferior glide. He has last tenderness with soft tissue mobilization today and improved muscle length. Pt compliant with HEP. He has improved form with periscapular strengthening, progressed to low row and mid row today. Trialed push up plus on wall, but pt demos difficulty with coordinating scapular protraction. However, during sidelying AROM, pt able to move through full ER and abd without increase in pain; continues to have most discomfort with flexion, nora initiating movement. Pt would benefit from skilled PT for L shoulder mobility, periscapular and rotator cuff strengthening in order to decrease pain symptoms and improve activity tolerance. Physical Therapy Plan Frequency and Duration Frequency of Treatment 1-2x/wk Duration of treatment (weeks) 12 Plan of Care Start Date 09/08/23 Plan of Care End Date 12/05/23 Therapeutic Interventions Therapeutic Interventions Balance Training,Gait Training ,Home Exercise Program,Joint Mobilizations,Manual Therapy, Neuromuscular Re-education, Patient/Caregiver Education, Self-Care/Home Management, Sensory Integration,Soft Tissue Mobilization,Taping, Therapeutic Activities, Therapeutic Exercises Modalities Cold Pack/Ice Massage,Electric Stimulation,Hot Packs, Ultrasound,Vasopneumatic Devices Next Visit Focus/Plan Next Note Type Treatment Note Next Visit Plan Review Sidelying flex/abd/ER, periscapular strengthening, p/ u plus, row/low row, arm slide with lift off, serratus slide , inferior glide self mobilization. Initiate gentle RTC strengthening, cont periscapular strengthening Manual: STM, joint mobilizations Assess sensation next session
--- NOTE | 2023-09-29 12:58 | PT.OTN ---
Current Diagnoses Other chronic pain (09/29/23) Pain in left shoulder (09/29/23) Other specified disorders of muscle (09/29/23) Weakness (09/29/23) Physical Therapy Treatment Note PT-OP-A Visit Information Start: 09/08/23 07:29 Freq: Status: Active Protocol: Document 09/29/23 08:17 NM (Rec: 09/29/23 09:05 NM [id number]) Out-Patient Physical Therapy Visit Information Visit Information Visit Type Treatment Note Visit Note 12 visits Visit Start Time 08:18 Visit Stop Time 09:00 Visit Number 4 Evaluation Information Evaluation Date 09/08/23 Precautions Precautions osteopenia PT-OP-B Current Condition Start: 09/08/23 07:29 Freq: Status: Active Protocol: Document 09/08/23 08:15 NM (Rec: 09/08/23 09:07 NM [id number]) Current Condition History of Current Condition Onset Date 1 year ago Current Complaints strength, mobility History of Current Condition Pt presents with L shoulder pain. He slipped on ice 1 year ago, landing on shoulder with arm by side. Pt states went to doctor who thinks rotator cuff and AC joint; states caution about freezing up. Reports improving gradually with full ROM, with a little hitch with elevation. He is concerned about weakness, especially to prevent damaging it further. In early July, he began having L sided neck pain to shoulder blade, which is also restricting motion; states improved with muscle relaxers. He can do everything but not smoothly. Pt states that he does not have numbness/ tingling and denies falling asleep, but states coldness compared to RUE. Pt has a past shoulder injury from football , a stinger that went away. Has hx of neck pain, improved with prednisone. Pt also reports that he has hx of instability, including subluxations or dislocations from his youth Prior Treatments and Tests 04/2022 Radiograph: no fracture/dislocation, mild AC joint OA Current Functional Impairments (Reported) Functional Limitations- ADL's lifting ~milk jug Functional Limitations- Mobility/Gait improved with grooming, dressing Functional Limitations- Other driving with L hand, mowing lawn (push mower) PT-OP-C Subjective Start: 09/08/23 07:29 Freq: Status: Active Protocol: Document 09/29/23 08:17 NM (Rec: 09/29/23 09:05 NM [id number]) OP-PT Subjective Patient Comments Patient Comments Pt reports that his L shoulder feels stronger. States exercises going well and are helping, feels like making good progress PT-OP-E Functional Tests Start: 09/08/23 07:29 Freq: Status: Active Protocol: Document 09/08/23 08:15 NM (Rec: 09/08/23 09:07 NM [id number]) Functional Tests Apley's Scratch Test Action 1- Left ant shoulder Action 1- Right post scap Action 2- Left T4 Action 2- Right T4 Action 3- Left T9 Action 3- Right T10 PT-OP-F Manual Assessment Start: 09/08/23 07:29 Freq: Status: Active Protocol: Document 09/08/23 08:15 NM (Rec: 09/08/23 09:07 NM [id number]) Manual Assessments Soft Tissue Assessment Soft Tissue Mobility Assessment Decreased latissimus length. Tenderness of L rotator cuff, especially near insertion, and periscapular muscles. Demos 8 cm L medial scapular border from spine, 11 cm R scapular medial border to spine Joint Mobility Assessment Joint Mobility Assessment Demos forward placement of L humeral head. Full passive L shoulder ROM, limitations in L active shoulder ROM PT-OP-G Mobility & Gait Start: 09/08/23 07:29 Freq: Status: Active Protocol: Document 09/08/23 08:15 NM (Rec: 09/08/23 16:18 NM [id number]) OP Gait Assessment Gait Distance (Feet) 150 Comments Gait Comments Demos slightly antalgic gait, no trunk rotation or arm swing PT-OP-H Neuro Start: 09/08/23 07:29 Freq: Status: Active Protocol: Document 09/08/23 08:15 NM (Rec: 09/08/23 16:18 NM [id number]) Sensation Evaluation Comments Summary Comments Will assess formally in next session PT-OP-J Posture/Palpation/Skin Start: 09/08/23 07:29 Freq: Status: Active Protocol: Document 09/08/23 08:15 NM (Rec: 09/08/23 16:18 NM [id number]) Posture Evaluation Position Standing Head/C-Spine Posture Forward Head T-Spine Posture Increased Kyphosis Shoulder Posture (L) Forward,(R) Forward Scapula Posture (L) Protracted,(R) Protracted, (L) Tipped Arm Posture (L) Internally Rotated,(R) Internally Rotated Pelvis Posture Anteriorly Tilted Weight Distribution Balanced Hip Posture (L) Externally Rotated,(R) Externally Rotated Palpation Assessment Location L shoulder Palpation Details Tenderness: rotator cuff, latissimus, rhomboids, AC joint Tightness: latissimus, cervical spine paraspinals and upper trapezius/levator scapula Skin Assessment Other Assessments Skin Assessment Comments No swelling, change in temperature, or color of LUE compared to RUE at evaluation PT-OP-K Range of Motion Start: 09/08/23 07:29 Freq: Status: Active Protocol: Document 09/29/23 08:17 NM (Rec: 09/29/23 09:05 NM [id number]) Shoulder Goniometric Range of Motion Shoulder Left Flexion 140 Extension 60 Abduction 155 External Rotation at 0 degrees Abduction 60 Internal Rotation 70 Comments 09/08/23: Demos UT compensation , trunk rot with ER 09/29/23: 160 deg flex, 170 deg abd, 60 deg ER at 0 deg abd PT-OP-L Special Tests Start: 09/08/23 07:29 Freq: Status: Active Protocol: Document 09/08/23 08:15 NM (Rec: 09/08/23 09:07 NM [id number]) Special Tests Cervical Spine Special Tests Spurling's Test Results - Shoulder Special Tests Apprehension-Relocation Test Results - IR/Horizontal ADD Impingement Test Results - Empty Can Test Results + Drop Arm Rotator Cuff Test Results - External Rotation Lag Sign Test Results - Lift-Off Rotator Cuff Test Results - Comments able to lift off but increased L shoulder tightness and discomfort Spence Víctor Impingement Test Results - Neer Impingement Test Results - AC Joint Compression Test Results + PT-OP-M Strength Start: 09/08/23 07:29 Freq: Status: Active Protocol: Document 09/29/23 08:17 NM (Rec: 09/29/23 09:05 NM [id number]) Shoulder Strength Shoulder Manual Muscle Testing Left Flexion 4- Good- Extension 4 Good Abduction (C5) 4 Good External Rotation 4- Good- Internal Rotation 4 Good Comments 09/29/23: 4-/5 flex (painful), 4/5 for all rest PT-OP-Q Treatments Start: 09/08/23 07:29 Freq: Status: Active Protocol: Document 09/29/23 08:17 NM (Rec: 09/29/23 09:05 NM [id number]) Therapeutic Exercises Sidelying Exercises ER Side left Equipment Used towel between elbow Reps/Minutes 1x10 Comments pain free, improved ROM with scap retract abduction Side left Resistance AROM Equipment Used cued controlled eccentric lowering Reps/Minutes 1x10 Comments pain free; improved scap/ROM; post manual tx flexion Side left Resistance AROM Reps/Minutes 1x10 Comments cued post scap, improved mobility; cued controlled eccentric lowering Sitting Exercises cervical spine stretches Sitting Exercise Name 1. UT, 2. LS w/ overpressure Side bilateral Equipment Used hand holding plinth for tension, no overpressure w/ hand for UT Reps/Minutes 2x30 Comments pain free, but reports good stretch in appropriate muscles Standing Exercises rotator cuff theraband Standing Exercise Name 1. ER walkout, 2. IR walkout Side left Resistance lvl 1 band (isometric) Equipment Used towel roll btwn arm/body Reps/Minutes 1x10 ea Comments end of session; pain free IR, fatiguing ER w/ slight joint pain cue scap se rows Standing Exercise Name HEP review Side bilateral Resistance lvl 3 band Reps/Minutes 3x10 Comments pain free; improved ROM low rows Standing Exercise Name HEP review: shoulder ext Side bilateral Resistance lvl 3 band Reps/Minutes 2x10 Comments pain free Manual Therapy Treatment Soft Tissue Mobilization L shoulder Body Location periscapular, rotator cuff, lat, UT/LS Mobilization Type Rolling,Strumming,Sustained Pressure Intensity/Depth Moderate Body Position Sidelying Comments No tenderness along L rotator cuff and periscapulars, prior to exercise Joint Mobilizations L scapulothoracic Direction ADD/dep, protract/retract, elevation Grade III Body Position Sidelying Reps/Duration 1x10 ea Comments Performed with sidelying abduction and flexion, protraction/retraction. PROM> AAROM, cueing for posterior scapular setting. Pain free mobilization. Less adduction/ retraction/depression. Improved with sidelying AROM flex/abd, pain free L GHJ Direction posterior, inferior Grade III Body Position Supine Reps/Duration 4x30 Comments For improved joint mobility. From 45 to 90 deg abd for posterior glide, biased into ER. Reports feels better with posterior glide pressure. Decrease inferior glide, improved with mobilization and able to move into more abduction with less pain and improved mobility, continues to be limited at 90 deg abd with glide Self-Care/Home Management Treatment Education Patient Education Home Exercise Program Other Education HEP: cervical spine stretches. Condensed HEP with prone I/ row due to banded rows added last session PT-OP-T Assessment and Plan Start: 09/08/23 07:29 Freq: Status: Active Protocol: Document 09/29/23 08:17 NM (Rec: 09/29/23 09:05 NM [id number]) Physical Therapy Assessment Goals Five Impairment strength Impairment L shoulder IR/abduction 4/5 Short Term Goal (STG) Pt will improve L shoulder IR and abduction strength to at least 4+/5 MMT in order to increase strength required for ADLs, lifting, recreational activities 09/29/23: 4/5 for ER/IR/ABD STG Duration 6 weeks Mcfp Goal (LTG) Pt will improve L shoulder IR and abduction strength to at least 5/5 MMT in order to increase strength required for ADLs, lifting, recreational activities LTG Duration 12 weeks Four Impairment strength Impairment L shoulder flexion/ER 4-/5 MMT Short Term Goal (STG) Pt will improve L shoulder flexion/ER strength to at least 4/5 MMT in order to increase strength required for ADLs, lifting, recreational activities 09/29/23: 4-/5 flex (painful), 4/5 for ER/IR/ABD STG Duration 6 weeks Mcfp Goal (LTG) Pt will improve L shoulder flexion/ER strength to at least 4+/5 MMT in order to increase strength required for ADLs, lifting, recreational activities LTG Duration 12 weeks Three Impairment AROM Impairment L shoulder flexion 140 deg, abduction 155 deg Short Term Goal (STG) Pt will improve L shoulder flexion to at least 155 deg and L shoulder abduction to at least 160 deg in order to demonstrate improved shoulder mobility for reaching and ADLs 09/29/23: 160 deg flex, 170 deg abd STG Duration 6 weeks [facility] [employer] Goal (LTG) Pt will improve L shoulder flexion and abduction to at least 165 deg in order to demonstrate improved shoulder mobility for reaching and ADLs LTG Duration 12 weeks Two Impairment AROM Impairment cervical spine rotation 65 deg R Short Term Goal (STG) Pt will improve R cervical spine rotation to at least 70 deg in order to demonstrate improved muscle length for visual scanning 09/29/23: 65 deg L rotation STG Duration 6 weeks Mcfp Goal (LTG) Pt will improve R cervical spine rotation to at least 75 deg in order to demonstrate improved muscle length for visual scanning LTG Duration 12 weeks One Impairment HEP Impairment not performing HEP Short Term Goal (STG) Pt will report compliance with HEP at least 2-3x/wk in order to maximize progression with PT and promote independence with rehabilitation 09/29/23: performing HEP every day STG Duration 6 weeks Systems Integrator Goal (LTG) Pt will report compliance with HEP at least 3x/wk in order to transition into maintenance program upon discharge from PT LTG Duration 12 weeks Assessment Summary Assessment Pt tolerated well but continues to have pain with resisted flex and ER. Resisted flexion is most painful for pt. Initiated resisted walkout to initiate rotator cuff strengthening. Pt painfree with IR but painful ER even with retraction/scap set. Reviewed rows for periscap strengthening. Pt requires visual and verbal cues for correct form and scapular control; improved with reps. Initiated cervical spine stretches to improve muscle length post manual treatment and reduce muscle tension in cervical spine. Pt tolerated well without any pain and reports improvements post stretching. Continues to respond best to manual treatment. He has improved inferior glide of his L glenohumeral joint with mobilization, but continues to have a catch at 90 deg abduction. No pain with any sidelying AROM post manual treatment. Pt now with 160 deg flex, 170 deg abd. Overall, progressing well toward goals. Pt would benefit from skilled PT for L shoulder strengthening and body mechanics training in order to improve activity tolerance and QOL. Physical Therapy Plan Frequency and Duration Frequency of Treatment 1-2x/wk Duration of treatment (weeks) 12 Plan of Care Start Date 09/08/23 Plan of Care End Date 12/05/23 Therapeutic Interventions Therapeutic Interventions Balance Training,Gait Training ,Home Exercise Program,Joint Mobilizations,Manual Therapy, Neuromuscular Re-education, Patient/Caregiver Education, Self-Care/Home Management, Sensory Integration,Soft Tissue Mobilization,Taping, Therapeutic Activities, Therapeutic Exercises Modalities Cold Pack/Ice Massage,Electric Stimulation,Hot Packs, Ultrasound,Vasopneumatic Devices Next Visit Focus/Plan Next Note Type Treatment Note Next Visit Plan Trial small resistance with sidelying abduction/flex/ER, reactive isometrics for ER and continue with IR at 0 deg abd , progress periscapular strengthening, serratus strengthening w/ roll up, banded flex Manual: STM, joint mobilizations
--- NOTE | 2023-10-15 09:21 | PT.OTN ---
Current Diagnoses Other chronic pain (10/15/23) Pain in left shoulder (10/15/23) Other specified disorders of muscle (10/15/23) Weakness (10/15/23) Physical Therapy Treatment Note PT-OP-A Visit Information Start: 09/08/23 07:29 Freq: Status: Active Protocol: Document 10/15/23 08:05 AB (Rec: 10/15/23 09:21 AB [id number]) Out-Patient Physical Therapy Visit Information Visit Information Visit Type Treatment Note Visit Note 12 visits Visit Start Time 08:17 Visit Stop Time 09:04 Visit Number 5 Number of PASSENGER AGENT Visits 1 Evaluation Information Evaluation Date 09/08/23 Precautions Precautions osteopenia PT-OP-B Current Condition Start: 09/08/23 07:29 Freq: Status: Active Protocol: Document 09/08/23 08:15 NM (Rec: 09/08/23 09:07 NM [id number]) Current Condition History of Current Condition Onset Date 1 year ago Current Complaints strength, mobility History of Current Condition Pt presents with L shoulder pain. He slipped on ice 1 year ago, landing on shoulder with arm by side. Pt states went to doctor who thinks rotator cuff and AC joint; states caution about freezing up. Reports improving gradually with full ROM, with a little hitch with elevation. He is concerned about weakness, especially to prevent damaging it further. In early July, he began having L sided neck pain to shoulder blade, which is also restricting motion; states improved with muscle relaxers. He can do everything but not smoothly. Pt states that he does not have numbness/ tingling and denies falling asleep, but states coldness compared to RUE. Pt has a past shoulder injury from football , a stinger that went away. Has hx of neck pain, improved with prednisone. Pt also reports that he has hx of instability, including subluxations or dislocations from his youth Prior Treatments and Tests 04/2022 Radiograph: no fracture/dislocation, mild AC joint OA Current Functional Impairments (Reported) Functional Limitations- ADL's lifting ~milk jug Functional Limitations- Mobility/Gait improved with grooming, dressing Functional Limitations- Other driving with L hand, mowing lawn (push mower) PT-OP-C Subjective Start: 09/08/23 07:29 Freq: Status: Active Protocol: Document 10/15/23 08:05 AB (Rec: 10/15/23 09:21 AB [id number]) OP-PT Subjective Patient Comments Patient Comments Patient reports the shoulder is better, reports the exercises are helping. AROM 150 deg flexion left shoulder start of session. Patient into session with report that back is bothering him, is having back pain, noted grimacing post supine to sit. PT-OP-E Functional Tests Start: 09/08/23 07:29 Freq: Status: Active Protocol: Document 09/08/23 08:15 NM (Rec: 09/08/23 09:07 NM [id number]) Functional Tests Apley's Scratch Test Action 1- Left ant shoulder Action 1- Right post scap Action 2- Left T4 Action 2- Right T4 Action 3- Left T9 Action 3- Right T10 PT-OP-F Manual Assessment Start: 09/08/23 07:29 Freq: Status: Active Protocol: Document 09/08/23 08:15 NM (Rec: 09/08/23 09:07 NM [id number]) Manual Assessments Soft Tissue Assessment Soft Tissue Mobility Assessment Decreased latissimus length. Tenderness of L rotator cuff, especially near insertion, and periscapular muscles. Demos 8 cm L medial scapular border from spine, 11 cm R scapular medial border to spine Joint Mobility Assessment Joint Mobility Assessment Demos forward placement of L humeral head. Full passive L shoulder ROM, limitations in L active shoulder ROM PT-OP-G Mobility & Gait Start: 09/08/23 07:29 Freq: Status: Active Protocol: Document 09/08/23 08:15 NM (Rec: 09/08/23 16:18 NM [id number]) OP Gait Assessment Gait Distance (Feet) 150 Comments Gait Comments Demos slightly antalgic gait, no trunk rotation or arm swing PT-OP-H Neuro Start: 09/08/23 07:29 Freq: Status: Active Protocol: Document 09/08/23 08:15 NM (Rec: 09/08/23 16:18 NM [id number]) Sensation Evaluation Comments Summary Comments Will assess formally in next session PT-OP-J Posture/Palpation/Skin Start: 09/08/23 07:29 Freq: Status: Active Protocol: Document 09/08/23 08:15 NM (Rec: 09/08/23 16:18 NM [id number]) Posture Evaluation Position Standing Head/C-Spine Posture Forward Head T-Spine Posture Increased Kyphosis Shoulder Posture (L) Forward,(R) Forward Scapula Posture (L) Protracted,(R) Protracted, (L) Tipped Arm Posture (L) Internally Rotated,(R) Internally Rotated Pelvis Posture Anteriorly Tilted Weight Distribution Balanced Hip Posture (L) Externally Rotated,(R) Externally Rotated Palpation Assessment Location L shoulder Palpation Details Tenderness: rotator cuff, latissimus, rhomboids, AC joint Tightness: latissimus, cervical spine paraspinals and upper trapezius/levator scapula Skin Assessment Other Assessments Skin Assessment Comments No swelling, change in temperature, or color of LUE compared to RUE at evaluation PT-OP-K Range of Motion Start: 09/08/23 07:29 Freq: Status: Active Protocol: Document 09/29/23 08:17 NM (Rec: 09/29/23 09:05 NM [id number]) Shoulder Goniometric Range of Motion Shoulder Left Flexion 140 Extension 60 Abduction 155 External Rotation at 0 degrees Abduction 60 Internal Rotation 70 Comments 09/08/23: Demos [place] compensation , trunk rot with ER 09/29/23: 160 deg flex, 170 deg abd, 60 deg ER at 0 deg abd PT-OP-L Special Tests Start: 09/08/23 07:29 Freq: Status: Active Protocol: Document 09/08/23 08:15 NM (Rec: 09/08/23 09:07 NM [id number]) Special Tests Cervical Spine Special Tests Spurling's Test Results - Shoulder Special Tests Apprehension-Relocation Test Results - IR/Horizontal ADD Impingement Test Results - Empty Can Test Results + Drop Arm Rotator Cuff Test Results - External Rotation Lag Sign Test Results - Lift-Off Rotator Cuff Test Results - Comments able to lift off but increased L shoulder tightness and discomfort Spence Víctor Impingement Test Results - Neer Impingement Test Results - AC Joint Compression Test Results + PT-OP-M Strength Start: 09/08/23 07:29 Freq: Status: Active Protocol: Document 09/29/23 08:17 NM (Rec: 09/29/23 09:05 NM [id number]) Shoulder Strength Shoulder Manual Muscle Testing Left Flexion 4- Good- Extension 4 Good Abduction (C5) 4 Good External Rotation 4- Good- Internal Rotation 4 Good Comments 09/29/23: 4-/5 flex (painful), 4/5 for all rest PT-OP-Q Treatments Start: 09/08/23 07:29 Freq: Status: Active Protocol: Document 10/15/23 08:05 AB (Rec: 10/15/23 09:21 AB [id number]) Therapeutic Exercises Supine Exercises shoulder flexion Supine Exercise Name AROM, reclined with 1 lb, hooklying mini band (ER with flexion) Side bilateral Resistance without weight ( 1 lb reclined ) and with light blue band Reps/Minutes X5 with 10 sec hold, X 1 reclined with 1 lb,X 10 with shoulder ER with band Comments verbal cues serratus punch Supine Exercise Name HEP review Side left Resistance AROM and 1 lb Reps/Minutes X 6 1 lb X 10 without weight Comments reports occasional popping type sensation with 1 lb Sidelying Exercises ER Side left Equipment Used towel between elbow Reps/Minutes 1x10 Comments pain free, improved ROM with scap retract Standing Exercises isometric reactive IR Side left Resistance level one light blue band Reps/Minutes X15 Comments Verbal and visual cues rows Standing Exercise Name HEP review Side bilateral Resistance lvl 3 band Reps/Minutes 2X15 Comments VC for one foot fwd slightl to dec force on back low rows Standing Exercise Name HEP review: shoulder ext Side bilateral Resistance lvl 3 band Reps/Minutes 1X 15 Comments vc for one foot fwd Manual Therapy Treatment Soft Tissue Mobilization L shoulder Body Location pec, periscapular, rotator cuff, lat, UT/LS Joint Mobilizations L scapulothoracic Direction depression and adduction Grade IV Body Position Sidelying Reps/Duration X10 Comments [place] for pain L GHJ Direction posterior, inferior Grade IV Body Position Hooklying Reps/Duration 4X10 Comments [place] for pain Manual Techniques PROM left shoulder Type ER Body Position Hooklying Reps/Duration X4 PT-OP-T Assessment and Plan Start: 09/08/23 07:29 Freq: Status: Active Protocol: Document 10/15/23 08:05 AB (Rec: 10/15/23 09:21 AB [id number]) Physical Therapy Assessment Goals Five Impairment strength Impairment L shoulder IR/abduction 4/5 Short Term Goal (STG) Pt will improve L shoulder IR and abduction strength to at least 4+/5 MMT in order to increase strength required for ADLs, lifting, recreational activities 09/29/23: 4/5 for ER/IR/ABD STG Duration 6 weeks Usp Goal (LTG) Pt will improve L shoulder IR and abduction strength to at least 5/5 MMT in order to increase strength required for ADLs, lifting, recreational activities LTG Duration 12 weeks Four Impairment strength Impairment L shoulder flexion/ER 4-/5 MMT Short Term Goal (STG) Pt will improve L shoulder flexion/ER strength to at least 4/5 MMT in order to increase strength required for ADLs, lifting, recreational activities 09/29/23: 4-/5 flex (painful), 4/5 for ER/IR/ABD STG Duration 6 weeks Usp Goal (LTG) Pt will improve L shoulder flexion/ER strength to at least 4+/5 MMT in order to increase strength required for ADLs, lifting, recreational activities LTG Duration 12 weeks Three Impairment AROM Impairment L shoulder flexion 140 deg, abduction 155 deg Short Term Goal (STG) Pt will improve L shoulder flexion to at least 155 deg and L shoulder abduction to at least 160 deg in order to demonstrate improved shoulder mobility for reaching and ADLs 09/29/23: 160 deg flex, 170 deg abd STG Duration 6 weeks MET Usp Goal (LTG) Pt will improve L shoulder flexion and abduction to at least 165 deg in order to demonstrate improved shoulder mobility for reaching and ADLs LTG Duration 12 weeks Two Impairment AROM Impairment cervical spine rotation 65 deg R Short Term Goal (STG) Pt will improve R cervical spine rotation to at least 70 deg in order to demonstrate improved muscle length for visual scanning 09/29/23: 65 deg L rotation STG Duration 6 weeks Usp Goal (LTG) Pt will improve R cervical spine rotation to at least 75 deg in order to demonstrate improved muscle length for visual scanning LTG Duration 12 weeks One Impairment HEP Impairment not performing HEP Short Term Goal (STG) Pt will report compliance with HEP at least 2-3x/wk in order to maximize progression with PT and promote independence with rehabilitation 09/29/23: performing HEP every day STG Duration 6 weeks Usp Goal (LTG) Pt will report compliance with HEP at least 3x/wk in order to transition into maintenance program upon discharge from PT LTG Duration 12 weeks Assessment Summary Assessment AROM left shoulder flexion 160 deg end of session should allow patient to reach items placed at higher levels in the home. ROM not yet WNL. Pt reported pain when lowering UE with one lb weight in reclined position this session , ie unable to add to HEP. Physical Therapy Plan Frequency and Duration Frequency of Treatment 1-2x/wk Duration of treatment (weeks) 12 Plan of Care Start Date 09/08/23 Plan of Care End Date 12/05/23 Next Visit Focus/Plan Next Note Type Treatment Note Next Visit Plan Trial small resistance with sidelying abduction/flex/ER, reactive isometrics for ER and continue with IR at 0 deg abd , progress periscapular strengthening, serratus strengthening w/ roll up, Possibly wall slides or reclined shoulder flexion if able to lower UE without increased pain Manual: STM, joint mobilizations
--- NOTE | 2023-10-22 13:02 | PT.OTN ---
Current Diagnoses Other chronic pain (10/22/23) Pain in left shoulder (10/22/23) Other specified disorders of muscle (10/22/23) Weakness (10/22/23) Physical Therapy Treatment Note PT-OP-A Visit Information Start: 09/08/23 07:29 Freq: Status: Active Protocol: Document 10/22/23 07:31 NM (Rec: 10/22/23 08:18 NM [id number]) Out-Patient Physical Therapy Visit Information Visit Information Visit Type Progress Note Visit Note 12 visits Visit Start Time 07:32 Visit Stop Time 08:15 Visit Number 6 Evaluation Information Evaluation Date 09/08/23 Precautions Precautions osteopenia PT-OP-B Current Condition Start: 09/08/23 07:29 Freq: Status: Active Protocol: Document 09/08/23 08:15 NM (Rec: 09/08/23 09:07 NM [id number]) Current Condition History of Current Condition Onset Date 1 year ago Current Complaints strength, mobility History of Current Condition Pt presents with L shoulder pain. He slipped on ice 1 year ago, landing on shoulder with arm by side. Pt states went to doctor who thinks rotator cuff and AC joint; states caution about freezing up. Reports improving gradually with full ROM, with a little hitch with elevation. He is concerned about weakness, especially to prevent damaging it further. In early July, he began having L sided neck pain to shoulder blade, which is also restricting motion; states improved with muscle relaxers. He can do everything but not smoothly. Pt states that he does not have numbness/ tingling and denies falling asleep, but states coldness compared to RUE. Pt has a past shoulder injury from football , a stinger that went away. Has hx of neck pain, improved with prednisone. Pt also reports that he has hx of instability, including subluxations or dislocations from his youth Prior Treatments and Tests 04/2022 Radiograph: no fracture/dislocation, mild AC joint OA Current Functional Impairments (Reported) Functional Limitations- ADL's lifting ~milk jug Functional Limitations- Mobility/Gait improved with grooming, dressing Functional Limitations- Other driving with L hand, mowing lawn (push mower) PT-OP-C Subjective Start: 09/08/23 07:29 Freq: Status: Active Protocol: Document 10/22/23 07:31 NM (Rec: 10/22/23 08:18 NM [id number]) OP-PT Subjective Patient Comments Patient Comments Pt reports that his shoulder is getting stronger, but states still hurts occasionally. Her reports that the serratus punch hurts. Can reach and put dishes away, reach overhead, can sleep better, hurts with less frequency. PT-OP-E Functional Tests Start: 09/08/23 07:29 Freq: Status: Active Protocol: Document 09/08/23 08:15 NM (Rec: 09/08/23 09:07 NM [id number]) Functional Tests Apley's Scratch Test Action 1- Left ant shoulder Action 1- Right post scap Action 2- Left T4 Action 2- Right T4 Action 3- Left T9 Action 3- Right T10 PT-OP-F Manual Assessment Start: 09/08/23 07:29 Freq: Status: Active Protocol: Document 09/08/23 08:15 NM (Rec: 09/08/23 09:07 NM [id number]) Manual Assessments Soft Tissue Assessment Soft Tissue Mobility Assessment Decreased latissimus length. Tenderness of L rotator cuff, especially near insertion, and periscapular muscles. Demos 8 cm L medial scapular border from spine, 11 cm R scapular medial border to spine Joint Mobility Assessment Joint Mobility Assessment Demos forward placement of L humeral head. Full passive L shoulder ROM, limitations in L active shoulder ROM PT-OP-G Mobility & Gait Start: 09/08/23 07:29 Freq: Status: Active Protocol: Document 09/08/23 08:15 NM (Rec: 09/08/23 16:18 NM [id number]) OP Gait Assessment Gait Distance (Feet) 150 Comments Gait Comments Demos slightly antalgic gait, no trunk rotation or arm swing PT-OP-H Neuro Start: 09/08/23 07:29 Freq: Status: Active Protocol: Document 09/08/23 08:15 NM (Rec: 09/08/23 16:18 NM [id number]) Sensation Evaluation Comments Summary Comments Will assess formally in next session PT-OP-J Posture/Palpation/Skin Start: 09/08/23 07:29 Freq: Status: Active Protocol: Document 09/08/23 08:15 NM (Rec: 09/08/23 16:18 NM [id number]) Posture Evaluation Position Standing Head/C-Spine Posture Forward Head T-Spine Posture Increased Kyphosis Shoulder Posture (L) Forward,(R) Forward Scapula Posture (L) Protracted,(R) Protracted, (L) Tipped Arm Posture (L) Internally Rotated,(R) Internally Rotated Pelvis Posture Anteriorly Tilted Weight Distribution Balanced Hip Posture (L) Externally Rotated,(R) Externally Rotated Palpation Assessment Location L shoulder Palpation Details Tenderness: rotator cuff, latissimus, rhomboids, AC joint Tightness: latissimus, cervical spine paraspinals and upper trapezius/levator scapula Skin Assessment Other Assessments Skin Assessment Comments No swelling, change in temperature, or color of LUE compared to RUE at evaluation PT-OP-K Range of Motion Start: 09/08/23 07:29 Freq: Status: Active Protocol: Document 10/22/23 07:31 NM (Rec: 10/22/23 12:44 NM [id number]) Cervical Spine Range of Motion Cervical Spine Active Degrees Flexion 45 Extension 30 Rotation Left 70 Rotation Right 65 Lateral Flexion Left 40 Lateral Flexion Right 20 Comments Tightness and minimal L neck/ shoulder pain reproduced with R lateral flexion and rotation 10/22/23: 66 deg L rotation, 68 deg R rotation Shoulder Goniometric Range of Motion Shoulder Left Flexion 140 Extension 60 Abduction 155 External Rotation at 0 degrees Abduction 60 Internal Rotation 70 Comments 09/08/23: Demos UT compensation , trunk rot with ER 09/29/23: 160 deg flex, 170 deg abd, 60 deg ER at 0 deg abd 10/22/23: T9 IR, 168 deg flex, 165 deg abd, 60 deg ER PT-OP-L Special Tests Start: 09/08/23 07:29 Freq: Status: Active Protocol: Document 09/08/23 08:15 NM (Rec: 09/08/23 09:07 NM [id number]) Special Tests Cervical Spine Special Tests Spurling's Test Results - Shoulder Special Tests Apprehension-Relocation Test Results - IR/Horizontal ADD Impingement Test Results - Empty Can Test Results + Drop Arm Rotator Cuff Test Results - External Rotation Lag Sign Test Results - Lift-Off Rotator Cuff Test Results - Comments able to lift off but increased L shoulder tightness and discomfort Spence Víctor Impingement Test Results - Neer Impingement Test Results - AC Joint Compression Test Results + PT-OP-M Strength Start: 09/08/23 07:29 Freq: Status: Active Protocol: Document 10/22/23 07:31 NM (Rec: 10/22/23 12:44 NM [id number]) Shoulder Strength Shoulder Manual Muscle Testing Left Flexion 4- Good- Extension 4 Good Abduction (C5) 4 Good External Rotation 4- Good- Internal Rotation 4 Good Comments 09/29/23: 4-/5 flex (painful), 4/5 for all rest 10/22/23: 4-/5 flex (painful), 4 /5 for all rest (no pain) PT-OP-Q Treatments Start: 09/08/23 07:29 Freq: Status: Active Protocol: Document 10/22/23 07:31 NM (Rec: 10/22/23 08:18 NM [id number]) Therapeutic Exercises Sidelying Exercises ER Side left Resistance 1# db Reps/Minutes 1x10 Comments clicking, pain free but feels weak; cued scap retraction abduction Side left Resistance 1# db Equipment Used cued eccentric lowering Reps/Minutes 1x10 Comments clicking; pain free flexion Side left Resistance AROM Reps/Minutes 1x10 Comments pain free, no clicking today; improved control, scap mobility Standing Exercises scapular plank Standing Exercise Name wall p/u plank Side bilateral Reps/Minutes 10x2 Comments cued protraction with push into wall; pain free, improved form isometric reactive IR Standing Exercise Name HEP review per pt request Side left Resistance lvl 1 band (peach) Reps/Minutes 1x10 Comments cues for // arm; pain free rows Side bilateral Resistance lvl 3 band Reps/Minutes 2x10 Comments cued for correct scapular movement low rows Standing Exercise Name shoulder ext Side bilateral Resistance lvl 3 band Reps/Minutes 2x10 Comments cued for correct scapular movement Manual Therapy Treatment Soft Tissue Mobilization L shoulder Body Location pec, periscapular, rotator cuff, lat, UT/LS Mobilization Type Rolling,Strumming,Sustained Pressure Intensity/Depth Moderate Body Position Sidelying Comments No tenderness along L rotator cuff and periscapulars, performed prior to exercise. Continues to have tightness of lat, pec, and UT/LS that is improved with soft tissue mobilizatoin Joint Mobilizations L scapulothoracic Direction depression and adduction Grade III Body Position Sidelying Reps/Duration 2x10, 2x30 Comments Monitored for pain, improved scapular control w/ PROM > AAROM with cueing to push into PT hand for active depression . Performed prior to exercise Self-Care/Home Management Treatment Education Patient Education Home Exercise Program Other Education HEP: plank on elbows (wall) with protraction. condensed HEP for ease PT-OP-T Assessment and Plan Start: 09/08/23 07:29 Freq: Status: Active Protocol: Document 10/22/23 07:31 NM (Rec: 10/22/23 08:18 NM [id number]) Physical Therapy Assessment Goals Five Impairment strength Impairment L shoulder IR/abduction 4/5 Short Term Goal (STG) Pt will improve L shoulder IR and abduction strength to at least 4+/5 MMT in order to increase strength required for ADLs, lifting, recreational activities 09/29/23: 4/5 for ER/IR/ABD 10/22/23: 4/5 MMT ER/IR/ABD STG Duration 6 weeks PROGRESSING [facility] [employer] Goal (LTG) Pt will improve L shoulder IR and abduction strength to at least 5/5 MMT in order to increase strength required for ADLs, lifting, recreational activities LTG Duration 12 weeks Four Impairment strength Impairment L shoulder flexion/ER 4-/5 MMT Short Term Goal (STG) Pt will improve L shoulder flexion/ER strength to at least 4/5 MMT in order to increase strength required for ADLs, lifting, recreational activities 09/29/23: 4-/5 flex (painful), 4/5 for ER/IR/ABD 10/22/23: 4-/5 for flexion with pain, 4/5 for ER STG Duration 6 weeks PARTIALLY MET [facility] [employer] [facility] Goal (LTG) Pt will improve L shoulder flexion/ER strength to at least 4+/5 MMT in order to increase strength required for ADLs, lifting, recreational activities LTG Duration 12 weeks Three Impairment AROM Impairment L shoulder flexion 140 deg, abduction 155 deg Short Term Goal (STG) Pt will improve L shoulder flexion to at least 155 deg and L shoulder abduction to at least 160 deg in order to demonstrate improved shoulder mobility for reaching and ADLs 09/29/23: 160 deg flex, 170 deg abd 10/22/23: 168 deg flex, 165 deg abd STG Duration 6 weeks MET [facility] [employer] [facility] Goal (LTG) Pt will improve L shoulder flexion and abduction to at least 165 deg in order to demonstrate improved shoulder mobility for reaching and ADLs LTG Duration 12 weeks Two Impairment AROM Impairment cervical spine rotation 65 deg R Short Term Goal (STG) Pt will improve R cervical spine rotation to at least 70 deg in order to demonstrate improved muscle length for visual scanning 09/29/23: 65 deg L rotation 10/22/23: 66 deg L, 68 deg R STG Duration 6 weeks NOT MET [facility] [employer] [facility] Goal (LTG) Pt will improve R cervical spine rotation to at least 75 deg in order to demonstrate improved muscle length for visual scanning LTG Duration 12 weeks One Impairment HEP Impairment not performing HEP Short Term Goal (STG) Pt will report compliance with HEP at least 2-3x/wk in order to maximize progression with PT and promote independence with rehabilitation 09/29/23: performing HEP every day 10/22/23: performing every other day STG Duration 6 weeks [facility] Goal (LTG) Pt will report compliance with HEP at least 3x/wk in order to transition into maintenance program upon discharge from PT LTG Duration 12 weeks Assessment Summary Assessment Pt tolerated session well and continues to make progress toward goals, particularly ROM . Pt able to tolerate 1# resistance with sidelying ER and abduction without pain, cued for form. Did not attempt L shoulder sidelying flexion with resistance due to pain; however, pt able to perform pain free throughout range without resistance, minimal joint clicking in shoulder. Transitioned to wall plank on elbows with protraction, which pt performed well and pain free with cueing to push into wall. Pt continues to have pain with resisted flexion. Physical Therapy Plan Frequency and Duration Frequency of Treatment 1-2x/wk Duration of treatment (weeks) 12 Plan of Care Start Date 09/08/23 Plan of Care End Date 12/05/23 Therapeutic Interventions Therapeutic Interventions Balance Training,Gait Training ,Home Exercise Program,Joint Mobilizations,Manual Therapy, Neuromuscular Re-education, Patient/Caregiver Education, Self-Care/Home Management, Sensory Integration,Soft Tissue Mobilization,Taping, Therapeutic Activities, Therapeutic Exercises Modalities Cold Pack/Ice Massage,Electric Stimulation,Hot Packs, Ultrasound,Vasopneumatic Devices Next Visit Focus/Plan Next Note Type Treatment Note Next Visit Plan Trial ER/IR AROM with light resistance band, serratus slide/roll up, prone W lift w/ press vs standing, cont miniband vs wall walk laterally Trial small resistance with sidelying abduction/flex/ER, reactive isometrics for ER and continue with IR at 0 deg abd , progress periscapular strengthening, serratus strengthening w/ roll up, Possibly wall slides or reclined shoulder flexion if able to lower UE without increased pain Manual: STM, joint mobilizations
--- NOTE | 2023-10-29 09:17 | PT.OTN ---
Current Diagnoses Other chronic pain (10/29/23) Pain in left shoulder (10/29/23) Other specified disorders of muscle (10/29/23) Weakness (10/29/23) Physical Therapy Treatment Note PT-OP-A Visit Information Start: 09/08/23 07:29 Freq: Status: Active Protocol: Document 10/29/23 08:06 AB (Rec: 10/29/23 09:02 AB [id number]) Out-Patient Physical Therapy Visit Information Visit Information Visit Type Treatment Note Visit Note 12 visits Access Code [email or web address] Visit Start Time 08:16 Visit Stop Time 09:00 Visit Number 7 Number of CHEMICAL DEPENDENCY ATTENDANT Visits 1 Evaluation Information Evaluation Date 09/08/23 Precautions Precautions osteopenia PT-OP-B Current Condition Start: 09/08/23 07:29 Freq: Status: Active Protocol: Document 09/08/23 08:15 NM (Rec: 09/08/23 09:07 NM [id number]) Current Condition History of Current Condition Onset Date 1 year ago Current Complaints strength, mobility History of Current Condition Pt presents with L shoulder pain. He slipped on ice 1 year ago, landing on shoulder with arm by side. Pt states went to doctor who thinks rotator cuff and AC joint; states caution about freezing up. Reports improving gradually with full ROM, with a little hitch with elevation. He is concerned about weakness, especially to prevent damaging it further. In early July, he began having L sided neck pain to shoulder blade, which is also restricting motion; states improved with muscle relaxers. He can do everything but not smoothly. Pt states that he does not have numbness/ tingling and denies falling asleep, but states coldness compared to RUE. Pt has a past shoulder injury from football , a stinger that went away. Has hx of neck pain, improved with prednisone. Pt also reports that he has hx of instability, including subluxations or dislocations from his youth Prior Treatments and Tests 04/2022 Radiograph: no fracture/dislocation, mild AC joint OA Current Functional Impairments (Reported) Functional Limitations- ADL's lifting ~milk jug Functional Limitations- Mobility/Gait improved with grooming, dressing Functional Limitations- Other driving with L hand, mowing lawn (push mower) PT-OP-C Subjective Start: 09/08/23 07:29 Freq: Status: Active Protocol: Document 10/29/23 08:06 AB (Rec: 10/29/23 09:02 AB [id number]) OP-PT Subjective Patient Comments Patient Comments Patient reports the shoulder is getting stronger, but comments it makes noise during some of the exercises and at times when reaching overhead. AROM 148 deg left shoulder flexion start of session. PT-OP-E Functional Tests Start: 09/08/23 07:29 Freq: Status: Active Protocol: Document 09/08/23 08:15 NM (Rec: 09/08/23 09:07 NM [id number]) Functional Tests Apley's Scratch Test Action 1- Left ant shoulder Action 1- Right post scap Action 2- Left T4 Action 2- Right T4 Action 3- Left T9 Action 3- Right T10 PT-OP-F Manual Assessment Start: 09/08/23 07:29 Freq: Status: Active Protocol: Document 09/08/23 08:15 NM (Rec: 09/08/23 09:07 NM [id number]) Manual Assessments Soft Tissue Assessment Soft Tissue Mobility Assessment Decreased latissimus length. Tenderness of L rotator cuff, especially near insertion, and periscapular muscles. Demos 8 cm L medial scapular border from spine, 11 cm R scapular medial border to spine Joint Mobility Assessment Joint Mobility Assessment Demos forward placement of L humeral head. Full passive L shoulder ROM, limitations in L active shoulder ROM PT-OP-G Mobility & Gait Start: 09/08/23 07:29 Freq: Status: Active Protocol: Document 09/08/23 08:15 NM (Rec: 09/08/23 16:18 NM [id number]) OP Gait Assessment Gait Distance (Feet) 150 Comments Gait Comments Demos slightly antalgic gait, no trunk rotation or arm swing PT-OP-H Neuro Start: 09/08/23 07:29 Freq: Status: Active Protocol: Document 09/08/23 08:15 NM (Rec: 09/08/23 16:18 NM [id number]) Sensation Evaluation Comments Summary Comments Will assess formally in next session PT-OP-J Posture/Palpation/Skin Start: 09/08/23 07:29 Freq: Status: Active Protocol: Document 09/08/23 08:15 NM (Rec: 09/08/23 16:18 NM [id number]) Posture Evaluation Position Standing Head/C-Spine Posture Forward Head T-Spine Posture Increased Kyphosis Shoulder Posture (L) Forward,(R) Forward Scapula Posture (L) Protracted,(R) Protracted, (L) Tipped Arm Posture (L) Internally Rotated,(R) Internally Rotated Pelvis Posture Anteriorly Tilted Weight Distribution Balanced Hip Posture (L) Externally Rotated,(R) Externally Rotated Palpation Assessment Location L shoulder Palpation Details Tenderness: rotator cuff, latissimus, rhomboids, AC joint Tightness: latissimus, cervical spine paraspinals and upper trapezius/levator scapula Skin Assessment Other Assessments Skin Assessment Comments No swelling, change in temperature, or color of LUE compared to RUE at evaluation PT-OP-K Range of Motion Start: 09/08/23 07:29 Freq: Status: Active Protocol: Document 10/22/23 07:31 NM (Rec: 10/22/23 12:44 NM [id number]) Cervical Spine Range of Motion Cervical Spine Active Degrees Flexion 45 Extension 30 Rotation Left 70 Rotation Right 65 Lateral Flexion Left 40 Lateral Flexion Right 20 Comments Tightness and minimal L neck/ shoulder pain reproduced with R lateral flexion and rotation 10/22/23: 66 deg L rotation, 68 deg R rotation Shoulder Goniometric Range of Motion Shoulder Left Flexion 140 Extension 60 Abduction 155 External Rotation at 0 degrees Abduction 60 Internal Rotation 70 Comments 09/08/23: Demos [place] compensation , trunk rot with ER 09/29/23: 160 deg flex, 170 deg abd, 60 deg ER at 0 deg abd 10/22/23: T9 IR, 168 deg flex, 165 deg abd, 60 deg ER PT-OP-L Special Tests Start: 09/08/23 07:29 Freq: Status: Active Protocol: Document 09/08/23 08:15 NM (Rec: 09/08/23 09:07 NM [id number]) Special Tests Cervical Spine Special Tests Spurling's Test Results - Shoulder Special Tests Apprehension-Relocation Test Results - IR/Horizontal ADD Impingement Test Results - Empty Can Test Results + Drop Arm Rotator Cuff Test Results - External Rotation Lag Sign Test Results - Lift-Off Rotator Cuff Test Results - Comments able to lift off but increased L shoulder tightness and discomfort Spence Víctor Impingement Test Results - Neer Impingement Test Results - AC Joint Compression Test Results + PT-OP-M Strength Start: 09/08/23 07:29 Freq: Status: Active Protocol: Document 10/22/23 07:31 NM (Rec: 10/22/23 12:44 NM [id number]) Shoulder Strength Shoulder Manual Muscle Testing Left Flexion 4- Good- Extension 4 Good Abduction (C5) 4 Good External Rotation 4- Good- Internal Rotation 4 Good Comments 09/29/23: 4-/5 flex (painful), 4/5 for all rest 10/22/23: 4-/5 flex (painful), 4 /5 for all rest (no pain) PT-OP-Q Treatments Start: 09/08/23 07:29 Freq: Status: Active Protocol: Document 10/29/23 08:06 AB (Rec: 10/29/23 09:02 AB [id number]) Therapeutic Exercises Supine Exercises shoulder flexion Supine Exercise Name mini band, Side bilateral Reps/Minutes X15 Sidelying Exercises ER Sidelying Exercise Name without band added to HEP Side left Reps/Minutes X15 without weight Standing Exercises foam roller on wall Side bilateral Reps/Minutes X10 Comments verbal and visual cues scapular depression Resistance level 3 band Reps/Minutes X15 Comments verbal cues shoulder IR Standing Exercise Name Added to HEP in place of isometric reactive Side left Resistance level one band Reps/Minutes 2X15 Comments verbal and visual cues, monitored for pain low rows Standing Exercise Name shoulder ext Side bilateral Resistance lvl 3 band Reps/Minutes 2X15 Comments cued for correct scapular movement Manual Therapy Treatment Joint Mobilizations L scapulothoracic Direction depression and adduction Grade III Body Position Sidelying Reps/Duration 3X10 each L GHJ Direction posterior, inferior Grade IV Body Position Hooklying Reps/Duration 4X10 Comments [place] for pain Manual Techniques PROM left shoulder Type ER Body Location left shoulder Body Position Hooklying Reps/Duration contract relax X 2 PT-OP-T Assessment and Plan Start: 09/08/23 07:29 Freq: Status: Active Protocol: Document 10/29/23 08:06 AB (Rec: 10/29/23 09:02 AB [id number]) Physical Therapy Assessment Goals Five Impairment strength Impairment L shoulder IR/abduction 4/5 Short Term Goal (STG) Pt will improve L shoulder IR and abduction strength to at least 4+/5 MMT in order to increase strength required for ADLs, lifting, recreational activities 09/29/23: 4/5 for ER/IR/ABD 10/22/23: 4/5 MMT ER/IR/ABD STG Duration 6 weeks PROGRESSING Division Sergeant Goal (LTG) Pt will improve L shoulder IR and abduction strength to at least 5/5 MMT in order to increase strength required for ADLs, lifting, recreational activities LTG Duration 12 weeks Four Impairment strength Impairment L shoulder flexion/ER 4-/5 MMT Short Term Goal (STG) Pt will improve L shoulder flexion/ER strength to at least 4/5 MMT in order to increase strength required for ADLs, lifting, recreational activities 09/29/23: 4-/5 flex (painful), 4/5 for ER/IR/ABD 10/22/23: 4-/5 for flexion with pain, 4/5 for ER STG Duration 6 weeks PARTIALLY MET [employer] Goal (LTG) Pt will improve L shoulder flexion/ER strength to at least 4+/5 MMT in order to increase strength required for ADLs, lifting, recreational activities LTG Duration 12 weeks Three Impairment AROM Impairment L shoulder flexion 140 deg, abduction 155 deg Short Term Goal (STG) Pt will improve L shoulder flexion to at least 155 deg and L shoulder abduction to at least 160 deg in order to demonstrate improved shoulder mobility for reaching and ADLs 09/29/23: 160 deg flex, 170 deg abd 10/22/23: 168 deg flex, 165 deg abd STG Duration 6 weeks MET [employer] Goal (LTG) Pt will improve L shoulder flexion and abduction to at least 165 deg in order to demonstrate improved shoulder mobility for reaching and ADLs LTG Duration 12 weeks Two Impairment AROM Impairment cervical spine rotation 65 deg R Short Term Goal (STG) Pt will improve R cervical spine rotation to at least 70 deg in order to demonstrate improved muscle length for visual scanning 09/29/23: 65 deg L rotation 10/22/23: 66 deg L, 68 deg R STG Duration 6 weeks NOT MET [employer]pc Goal (LTG) Pt will improve R cervical spine rotation to at least 75 deg in order to demonstrate improved muscle length for visual scanning LTG Duration 12 weeks One Impairment HEP Impairment not performing HEP Short Term Goal (STG) Pt will report compliance with HEP at least 2-3x/wk in order to maximize progression with PT and promote independence with rehabilitation 09/29/23: performing HEP every day 10/22/23: performing every other day STG Duration 6 weeks MET Division Sergeant Goal (LTG) Pt will report compliance with HEP at least 3x/wk in order to transition into maintenance program upon discharge from PT LTG Duration 12 weeks Assessment Summary Assessment 155 deg flexion AROM left shoulder end of session. Patient reports the clicking sensation with supine flexion AROM left shoulder is less end of session. Physical Therapy Plan Frequency and Duration Frequency of Treatment 1-2x/wk Duration of treatment (weeks) 12 Plan of Care Start Date 09/08/23 Plan of Care End Date 12/05/23 Next Visit Focus/Plan Next Note Type Treatment Note Next Visit Plan serratus slide/roll up, prone W lift w/ press vs standing, cont miniband vs wall walk laterally Trial small resistance with sidelying abduction/flex/ER, next session and progress periscapular strengthening, serratus strengthening w/ roll up, Possibly wall slides or reclined shoulder flexion if able to lower UE without increased pain Manual: STM, joint mobilizations
--- NOTE | 2023-11-05 14:27 | PT.OTN ---
Current Diagnoses Other chronic pain (11/05/23) Pain in left shoulder (11/05/23) Other specified disorders of muscle (11/05/23) Weakness (11/05/23) Physical Therapy Treatment Note PT-OP-A Visit Information Start: 09/08/23 07:29 Freq: Status: Active Protocol: Document 11/05/23 08:08 AB (Rec: 11/05/23 09:02 AB [id number]) Out-Patient Physical Therapy Visit Information Visit Information Visit Type Treatment Note Visit Note 12 visits Access Code [email or web address] Visit Start Time 08:17 Visit Stop Time 09:01 Visit Number 8 Number of VP CARDIOVASCULAR SERVICE LINE Visits 2 Evaluation Information Evaluation Date 09/08/23 Precautions Precautions osteopenia PT-OP-B Current Condition Start: 09/08/23 07:29 Freq: Status: Active Protocol: Document 09/08/23 08:15 NM (Rec: 09/08/23 09:07 NM [id number]) Current Condition History of Current Condition Onset Date 1 year ago Current Complaints strength, mobility History of Current Condition Pt presents with L shoulder pain. He slipped on ice 1 year ago, landing on shoulder with arm by side. Pt states went to doctor who thinks rotator cuff and AC joint; states caution about freezing up. Reports improving gradually with full ROM, with a little hitch with elevation. He is concerned about weakness, especially to prevent damaging it further. In early July, he began having L sided neck pain to shoulder blade, which is also restricting motion; states improved with muscle relaxers. He can do everything but not smoothly. Pt states that he does not have numbness/ tingling and denies falling asleep, but states coldness compared to RUE. Pt has a past shoulder injury from football , a stinger that went away. Has hx of neck pain, improved with prednisone. Pt also reports that he has hx of instability, including subluxations or dislocations from his youth Prior Treatments and Tests 04/2022 Radiograph: no fracture/dislocation, mild AC joint OA Current Functional Impairments (Reported) Functional Limitations- ADL's lifting ~milk jug Functional Limitations- Mobility/Gait improved with grooming, dressing Functional Limitations- Other driving with L hand, mowing lawn (push mower) PT-OP-C Subjective Start: 09/08/23 07:29 Freq: Status: Active Protocol: Document 11/05/23 08:08 AB (Rec: 11/05/23 09:02 AB [id number]) OP-PT Subjective Patient Comments Patient Comments Patient reports the shoulder is better, is able to do things he couldn't do before. Patient comments he is sore today, may have over done it with yard work. Patient reports noise with one of the exercises, but not pain. AROM left shoulder flexion 151 deg start of session. PT-OP-E Functional Tests Start: 09/08/23 07:29 Freq: Status: Active Protocol: Document 09/08/23 08:15 NM (Rec: 09/08/23 09:07 NM [id number]) Functional Tests Apley's Scratch Test Action 1- Left ant shoulder Action 1- Right post scap Action 2- Left T4 Action 2- Right T4 Action 3- Left T9 Action 3- Right T10 PT-OP-F Manual Assessment Start: 09/08/23 07:29 Freq: Status: Active Protocol: Document 09/08/23 08:15 NM (Rec: 09/08/23 09:07 NM [id number]) Manual Assessments Soft Tissue Assessment Soft Tissue Mobility Assessment Decreased latissimus length. Tenderness of L rotator cuff, especially near insertion, and periscapular muscles. Demos 8 cm L medial scapular border from spine, 11 cm R scapular medial border to spine Joint Mobility Assessment Joint Mobility Assessment Demos forward placement of L humeral head. Full passive L shoulder ROM, limitations in L active shoulder ROM PT-OP-G Mobility & Gait Start: 09/08/23 07:29 Freq: Status: Active Protocol: Document 09/08/23 08:15 NM (Rec: 09/08/23 16:18 NM [id number]) OP Gait Assessment Gait Distance (Feet) 150 Comments Gait Comments Demos slightly antalgic gait, no trunk rotation or arm swing PT-OP-H Neuro Start: 09/08/23 07:29 Freq: Status: Active Protocol: Document 09/08/23 08:15 NM (Rec: 09/08/23 16:18 NM [id number]) Sensation Evaluation Comments Summary Comments Will assess formally in next session PT-OP-J Posture/Palpation/Skin Start: 09/08/23 07:29 Freq: Status: Active Protocol: Document 09/08/23 08:15 NM (Rec: 09/08/23 16:18 NM [id number]) Posture Evaluation Position Standing Head/C-Spine Posture Forward Head T-Spine Posture Increased Kyphosis Shoulder Posture (L) Forward,(R) Forward Scapula Posture (L) Protracted,(R) Protracted, (L) Tipped Arm Posture (L) Internally Rotated,(R) Internally Rotated Pelvis Posture Anteriorly Tilted Weight Distribution Balanced Hip Posture (L) Externally Rotated,(R) Externally Rotated Palpation Assessment Location L shoulder Palpation Details Tenderness: rotator cuff, latissimus, rhomboids, AC joint Tightness: latissimus, cervical spine paraspinals and upper trapezius/levator scapula Skin Assessment Other Assessments Skin Assessment Comments No swelling, change in temperature, or color of LUE compared to RUE at evaluation PT-OP-K Range of Motion Start: 09/08/23 07:29 Freq: Status: Active Protocol: Document 10/22/23 07:31 NM (Rec: 10/22/23 12:44 NM [id number]) Cervical Spine Range of Motion Cervical Spine Active Degrees Flexion 45 Extension 30 Rotation Left 70 Rotation Right 65 Lateral Flexion Left 40 Lateral Flexion Right 20 Comments Tightness and minimal L neck/ shoulder pain reproduced with R lateral flexion and rotation 10/22/23: 66 deg L rotation, 68 deg R rotation Shoulder Goniometric Range of Motion Shoulder Left Flexion 140 Extension 60 Abduction 155 External Rotation at 0 degrees Abduction 60 Internal Rotation 70 Comments 09/08/23: Demos [place] compensation , trunk rot with ER 09/29/23: 160 deg flex, 170 deg abd, 60 deg ER at 0 deg abd 10/22/23: T9 IR, 168 deg flex, 165 deg abd, 60 deg ER PT-OP-L Special Tests Start: 09/08/23 07:29 Freq: Status: Active Protocol: Document 09/08/23 08:15 NM (Rec: 09/08/23 09:07 NM [id number]) Special Tests Cervical Spine Special Tests Spurling's Test Results - Shoulder Special Tests Apprehension-Relocation Test Results - IR/Horizontal ADD Impingement Test Results - Empty Can Test Results + Drop Arm Rotator Cuff Test Results - External Rotation Lag Sign Test Results - Lift-Off Rotator Cuff Test Results - Comments able to lift off but increased L shoulder tightness and discomfort Spence Víctor Impingement Test Results - Neer Impingement Test Results - AC Joint Compression Test Results + PT-OP-M Strength Start: 09/08/23 07:29 Freq: Status: Active Protocol: Document 10/22/23 07:31 NM (Rec: 10/22/23 12:44 NM [id number]) Shoulder Strength Shoulder Manual Muscle Testing Left Flexion 4- Good- Extension 4 Good Abduction (C5) 4 Good External Rotation 4- Good- Internal Rotation 4 Good Comments 09/29/23: 4-/5 flex (painful), 4/5 for all rest 10/22/23: 4-/5 flex (painful), 4 /5 for all rest (no pain) PT-OP-Q Treatments Start: 09/08/23 07:29 Freq: Status: Active Protocol: Document 11/05/23 08:08 AB (Rec: 11/05/23 09:02 AB [id number]) Therapeutic Exercises Supine Exercises shoulder flexion Supine Exercise Name reclined mini band Side bilateral Equipment Used light blue band Reps/Minutes X15 pectoralis stretch Supine Exercise Name arms at 45 deg abd Side bilateral Equipment Used 1/2 foam roller Reps/Minutes 3 min Sidelying Exercises ER Sidelying Exercise Name without band added to HEP Side left Resistance 1 lb Reps/Minutes X15 Comments monitored for pain and clicking abduction Side left Resistance 1# db Equipment Used cued eccentric lowering Reps/Minutes X1 Comments clicking; pain free Standing Exercises flexion Standing Exercise Name wall slide with lift off and lower without use of the wall Side left Reps/Minutes 3X Comments limited by pain/crepitus on 3rd rep shoulder IR Standing Exercise Name isometric reactive Side left Resistance level one band Reps/Minutes 2X15 Comments UE at side and at 30 deg Manual Therapy Treatment Soft Tissue Mobilization L shoulder Body Location pec, periscapular, rotator cuff, lat, UT/LS Mobilization Type Cross-Friction,Rolling, Sustained Pressure Intensity/Depth Moderate Body Position Sidelying Comments and hooklying prior to exercise Joint Mobilizations L scapulothoracic Direction depression and adduction Grade III Body Position Sidelying Reps/Duration 3X10 each L GHJ Direction posterior, inferior Grade IV Body Position Hooklying Reps/Duration 4X10 Comments [place] for pain PT-OP-T Assessment and Plan Start: 09/08/23 07:29 Freq: Status: Active Protocol: Document 11/05/23 08:08 AB (Rec: 11/05/23 09:02 AB [id number]) Physical Therapy Assessment Goals Five Impairment strength Impairment L shoulder IR/abduction 4/5 Short Term Goal (STG) Pt will improve L shoulder IR and abduction strength to at least 4+/5 MMT in order to increase strength required for ADLs, lifting, recreational activities 09/29/23: 4/5 for ER/IR/ABD 10/22/23: 4/5 MMT ER/IR/ABD STG Duration 6 weeks PROGRESSING Manager [employer] Goal (LTG) Pt will improve L shoulder IR and abduction strength to at least 5/5 MMT in order to increase strength required for ADLs, lifting, recreational activities LTG Duration 12 weeks Four Impairment strength Impairment L shoulder flexion/ER 4-/5 MMT Short Term Goal (STG) Pt will improve L shoulder flexion/ER strength to at least 4/5 MMT in order to increase strength required for ADLs, lifting, recreational activities 09/29/23: 4-/5 flex (painful), 4/5 for ER/IR/ABD 10/22/23: 4-/5 for flexion with pain, 4/5 for ER STG Duration 6 weeks PARTIALLY MET Correction Goal (LTG) Pt will improve L shoulder flexion/ER strength to at least 4+/5 MMT in order to increase strength required for ADLs, lifting, recreational activities LTG Duration 12 weeks Three Impairment AROM Impairment L shoulder flexion 140 deg, abduction 155 deg Short Term Goal (STG) Pt will improve L shoulder flexion to at least 155 deg and L shoulder abduction to at least 160 deg in order to demonstrate improved shoulder mobility for reaching and ADLs 09/29/23: 160 deg flex, 170 deg abd 10/22/23: 168 deg flex, 165 deg abd STG Duration 6 weeks MET [employer] Goal (LTG) Pt will improve L shoulder flexion and abduction to at least 165 deg in order to demonstrate improved shoulder mobility for reaching and ADLs LTG Duration 12 weeks Two Impairment AROM Impairment cervical spine rotation 65 deg R Short Term Goal (STG) Pt will improve R cervical spine rotation to at least 70 deg in order to demonstrate improved muscle length for visual scanning 09/29/23: 65 deg L rotation 10/22/23: 66 deg L, 68 deg R STG Duration 6 weeks NOT MET [employer] Goal (LTG) Pt will improve R cervical spine rotation to at least 75 deg in order to demonstrate improved muscle length for visual scanning LTG Duration 12 weeks One Impairment HEP Impairment not performing HEP Short Term Goal (STG) Pt will report compliance with HEP at least 2-3x/wk in order to maximize progression with PT and promote independence with rehabilitation 09/29/23: performing HEP every day 10/22/23: performing every other day STG Duration 6 weeks MET Correction Goal (LTG) Pt will report compliance with HEP at least 3x/wk in order to transition into maintenance program upon discharge from PT LTG Duration 12 weeks Assessment Summary Assessment 159 deg AROM left shoulder flexion, .5/10 pain end of session left shoulder Physical Therapy Plan Frequency and Duration Frequency of Treatment 1-2x/wk Duration of treatment (weeks) 12 Plan of Care Start Date 09/08/23 Plan of Care End Date 12/05/23 Next Visit Focus/Plan Next Note Type Treatment Note Next Visit Plan serratus slide/roll up, prone W lift w/ press vs standing, cont miniband vs wall walk laterally Trial small resistance with sidelying abduction/flex/ER, next session and progress periscapular strengthening, serratus strengthening w/ roll up, Possibly wall slides Manual: STM, joint mobilizations
--- NOTE | 2023-11-12 10:17 | PT.OTN ---
Current Diagnoses Other chronic pain (11/12/23) Pain in left shoulder (11/12/23) Other specified disorders of muscle (11/12/23) Weakness (11/12/23) Physical Therapy Treatment Note PT-OP-A Visit Information Start: 09/08/23 07:29 Freq: Status: Active Protocol: Document 11/12/23 07:30 NM (Rec: 11/12/23 08:19 NM [id number]) Out-Patient Physical Therapy Visit Information Visit Information Visit Type Progress Note Visit Note 12 visits Visit Start Time 07:31 Visit Stop Time 08:41 Visit Number 9 Evaluation Information Evaluation Date 09/08/23 Precautions Precautions osteopenia PT-OP-B Current Condition Start: 09/08/23 07:29 Freq: Status: Active Protocol: Document 09/08/23 08:15 NM (Rec: 09/08/23 09:07 NM [id number]) Current Condition History of Current Condition Onset Date 1 year ago Current Complaints strength, mobility History of Current Condition Pt presents with L shoulder pain. He slipped on ice 1 year ago, landing on shoulder with arm by side. Pt states went to doctor who thinks rotator cuff and AC joint; states caution about freezing up. Reports improving gradually with full ROM, with a little hitch with elevation. He is concerned about weakness, especially to prevent damaging it further. In early July, he began having L sided neck pain to shoulder blade, which is also restricting motion; states improved with muscle relaxers. He can do everything but not smoothly. Pt states that he does not have numbness/ tingling and denies falling asleep, but states coldness compared to RUE. Pt has a past shoulder injury from football , a stinger that went away. Has hx of neck pain, improved with prednisone. Pt also reports that he has hx of instability, including subluxations or dislocations from his youth Prior Treatments and Tests 04/2022 Radiograph: no fracture/dislocation, mild AC joint OA Current Functional Impairments (Reported) Functional Limitations- ADL's lifting ~milk jug Functional Limitations- Mobility/Gait improved with grooming, dressing Functional Limitations- Other driving with L hand, mowing lawn (push mower) PT-OP-C Subjective Start: 09/08/23 07:29 Freq: Status: Active Protocol: Document 11/12/23 07:30 NM (Rec: 11/12/23 08:19 NM [id number]) OP-PT Subjective Patient Comments Patient Comments Pt states shoulder is doing much better, he states he has much more ROM and less pain compared to when he started. He is concerned about the noise in his shoulder but thinks it is less than before. He is wanting to know if he should see a specialist even though he states he can do everything he needs to do PT-OP-E Functional Tests Start: 09/08/23 07:29 Freq: Status: Active Protocol: Document 09/08/23 08:15 NM (Rec: 09/08/23 09:07 NM [id number]) Functional Tests Apley's Scratch Test Action 1- Left ant shoulder Action 1- Right post scap Action 2- Left T4 Action 2- Right T4 Action 3- Left T9 Action 3- Right T10 PT-OP-F Manual Assessment Start: 09/08/23 07:29 Freq: Status: Active Protocol: Document 09/08/23 08:15 NM (Rec: 09/08/23 09:07 NM [id number]) Manual Assessments Soft Tissue Assessment Soft Tissue Mobility Assessment Decreased latissimus length. Tenderness of L rotator cuff, especially near insertion, and periscapular muscles. Demos 8 cm L medial scapular border from spine, 11 cm R scapular medial border to spine Joint Mobility Assessment Joint Mobility Assessment Demos forward placement of L humeral head. Full passive L shoulder ROM, limitations in L active shoulder ROM PT-OP-G Mobility & Gait Start: 09/08/23 07:29 Freq: Status: Active Protocol: Document 09/08/23 08:15 NM (Rec: 09/08/23 16:18 NM [id number]) OP Gait Assessment Gait Distance (Feet) 150 Comments Gait Comments Demos slightly antalgic gait, no trunk rotation or arm swing PT-OP-H Neuro Start: 09/08/23 07:29 Freq: Status: Active Protocol: Document 09/08/23 08:15 NM (Rec: 09/08/23 16:18 NM [id number]) Sensation Evaluation Comments Summary Comments Will assess formally in next session PT-OP-J Posture/Palpation/Skin Start: 09/08/23 07:29 Freq: Status: Active Protocol: Document 09/08/23 08:15 NM (Rec: 09/08/23 16:18 NM [id number]) Posture Evaluation Position Standing Head/C-Spine Posture Forward Head T-Spine Posture Increased Kyphosis Shoulder Posture (L) Forward,(R) Forward Scapula Posture (L) Protracted,(R) Protracted, (L) Tipped Arm Posture (L) Internally Rotated,(R) Internally Rotated Pelvis Posture Anteriorly Tilted Weight Distribution Balanced Hip Posture (L) Externally Rotated,(R) Externally Rotated Palpation Assessment Location L shoulder Palpation Details Tenderness: rotator cuff, latissimus, rhomboids, AC joint Tightness: latissimus, cervical spine paraspinals and upper trapezius/levator scapula Skin Assessment Other Assessments Skin Assessment Comments No swelling, change in temperature, or color of LUE compared to RUE at evaluation PT-OP-K Range of Motion Start: 09/08/23 07:29 Freq: Status: Active Protocol: Document 11/12/23 07:30 NM (Rec: 11/12/23 10:15 NM [id number]) Cervical Spine Range of Motion Cervical Spine Active Degrees Flexion 45 Extension 30 Rotation Left 70 Rotation Right 65 Lateral Flexion Left 40 Lateral Flexion Right 20 Comments Tightness and minimal L neck/ shoulder pain reproduced with R lateral flexion and rotation 10/22/23: 66 deg L rotation, 68 deg R rotation 11/12/23: 70 deg R, 88 deg L Shoulder Goniometric Range of Motion Shoulder Left Flexion 165 Extension 60 Abduction 175 External Rotation at 0 degrees Abduction 70 Internal Rotation 70 Internal Rotation Behind Back (text) T8 Comments 09/08/23: Demos UT compensation , trunk rot with ER 09/29/23: 160 deg flex, 170 deg abd, 60 deg ER at 0 deg abd 10/22/23: T9 IR, 168 deg flex, 165 deg abd, 60 deg ER 11/12/23: 165 flex, 175 abd, T8 IR, T5 ER, 70 deg ER at 0 deg abd; demonstrates crepitus and GHJ clicking but reports no pain PT-OP-L Special Tests Start: 09/08/23 07:29 Freq: Status: Active Protocol: Document 09/08/23 08:15 NM (Rec: 09/08/23 09:07 NM [id number]) Special Tests Cervical Spine Special Tests Spurling's Test Results - Shoulder Special Tests Apprehension-Relocation Test Results - IR/Horizontal ADD Impingement Test Results - Empty Can Test Results + Drop Arm Rotator Cuff Test Results - External Rotation Lag Sign Test Results - Lift-Off Rotator Cuff Test Results - Comments able to lift off but increased L shoulder tightness and discomfort Spence Víctor Impingement Test Results - Neer Impingement Test Results - AC Joint Compression Test Results + PT-OP-M Strength Start: 09/08/23 07:29 Freq: Status: Active Protocol: Document 11/12/23 07:30 NM (Rec: 11/12/23 10:15 NM [id number]) Shoulder Strength Shoulder Manual Muscle Testing Left Flexion 4 Good Extension 4+ Good+ Abduction (C5) 4+ Good+ External Rotation 4 Good Internal Rotation 4+ Good+ Comments 09/29/23: 4-/5 flex (painful), 4/5 for all rest 10/22/23: 4-/5 flex (painful), 4 /5 for all rest (no pain) 11/12/23: 4/5 flex/ER ( nonpainful), 4+/5 abd/IR ( nonpainful) PT-OP-Q Treatments Start: 09/08/23 07:29 Freq: Status: Active Protocol: Document 11/12/23 07:30 NM (Rec: 11/12/23 08:19 NM [id number]) Therapeutic Exercises Supine Exercises shoulder flexion Supine Exercise Name reclined > sitting mini band Side bilateral Equipment Used light blue band Reps/Minutes 10 ea position Comments cued to tension band more, alignment of elbow/hands; fatiguing Standing Exercises D2 Standing Exercise Name trialed in PT Side left Reps/Minutes 2 w/ rotation; 5 w/o rotation (remains ER) Comments painful, d/c w/ rotation due to pain contract-relax UT Standing Exercise Name shrug with lateral flexion to and away Side left Resistance 5# db Reps/Minutes 10 with 5 hold ea direction Comments feels good, relaxes muscle foam roller on wall Standing Exercise Name w/o foam roller Side bilateral Reps/Minutes 10 Comments cued alignment and for protraction; improved w/ reps Manual Therapy Treatment Consent Patient gave verbal consent for manual Yes treatment Soft Tissue Mobilization L shoulder Body Location pec, periscapular, rotator cuff, lat, UT/LS Mobilization Type Rolling,Sustained Pressure Intensity/Depth Moderate Body Position sidelying/supine Comments No tenderness today at muscles , but continues to have tightness and restrictions in anterior chest and posterior cuff muscles. Improved with soft tissue mobilization prior to exercise Self-Care/Home Management Treatment Education Patient Education Home Exercise Program Other Education HEP: serratus wall slide without band, contract-relax for upper trap with small resistance (no photo but written instructions on handout) PT-OP-T Assessment and Plan Start: 09/08/23 07:29 Freq: Status: Active Protocol: Document 11/12/23 07:30 NM (Rec: 11/12/23 08:19 NM [id number]) Physical Therapy Assessment Goals Five Impairment strength Impairment L shoulder IR/abduction 4/5 Short Term Goal (STG) Pt will improve L shoulder IR and abduction strength to at least 4+/5 MMT in order to increase strength required for ADLs, lifting, recreational activities 09/29/23: 4/5 for ER/IR/ABD 10/22/23: 4/5 MMT ER/IR/ABD 11/12/23: 4+/5 abd/IR STG Duration 6 weeks MET Usp Goal (LTG) Pt will improve L shoulder IR and abduction strength to at least 5/5 MMT in order to increase strength required for ADLs, lifting, recreational activities 11/12/23: 4+/5 abd/IR LTG Duration 12 weeks PROGRESSING Four Impairment strength Impairment L shoulder flexion/ER 4-/5 MMT Short Term Goal (STG) Pt will improve L shoulder flexion/ER strength to at least 4/5 MMT in order to increase strength required for ADLs, lifting, recreational activities 09/29/23: 4-/5 flex (painful), 4/5 for ER/IR/ABD 10/22/23: 4-/5 for flexion with pain, 4/5 for ER 11/12/23: 4/5 STG Duration 6 weeks PARTIALLY MET Usp Goal (LTG) Pt will improve L shoulder flexion/ER strength to at least 4+/5 MMT in order to increase strength required for ADLs, lifting, recreational activities 11/12/23: 4/5 for flex/ER LTG Duration 12 weeks PROGRESSING Three Impairment AROM Impairment L shoulder flexion 140 deg, abduction 155 deg Short Term Goal (STG) Pt will improve L shoulder flexion to at least 155 deg and L shoulder abduction to at least 160 deg in order to demonstrate improved shoulder mobility for reaching and ADLs 09/29/23: 160 deg flex, 170 deg abd 10/22/23: 168 deg flex, 165 deg abd STG Duration 6 weeks MET Usp Goal (LTG) Pt will improve L shoulder flexion and abduction to at least 165 deg in order to demonstrate improved shoulder mobility for reaching and ADLs 11/12/23: 165 flex, 175 abd, T8 IR, T5 ER, 70 deg ER at 0 deg abd; demonstrates crepitus and GHJ clicking but reports no pain LTG Duration 12 weeks MET Two Impairment AROM Impairment cervical spine rotation 65 deg R Short Term Goal (STG) Pt will improve R cervical spine rotation to at least 70 deg in order to demonstrate improved muscle length for visual scanning 09/29/23: 65 deg L rotation 10/22/23: 66 deg L, 68 deg R STG Duration 6 weeks NOT MET Equipment Washer Goal (LTG) Pt will improve R cervical spine rotation to at least 75 deg in order to demonstrate improved muscle length for visual scanning 11/12/23: 70 deg R, 88 deg L LTG Duration 12 weeks PARTIALLY MET One Impairment HEP Impairment not performing HEP Short Term Goal (STG) Pt will report compliance with HEP at least 2-3x/wk in order to maximize progression with PT and promote independence with rehabilitation 09/29/23: performing HEP every day 10/22/23: performing every other day STG Duration 6 weeks MET Usp Goal (LTG) Pt will report compliance with HEP at least 3x/wk in order to transition into maintenance program upon discharge from PT 11/12/23: at least 3x/wk, very compliant with HEP LTG Duration 12 weeks MET Progress Towards Goals Progress Towards Goals Progressing Toward Goals,Goals Met Assessment Summary Assessment Pt tolerated session well. Emphasis on HEP review and rotator cuff/periscapular strengthening. Pt has improved tolerance for contract-relax of upper trapezius rather than stretching. Demonstrates observable improvement in cervical spine muscle relaxation and ROM. At end of session, pt has 88 deg L rotation and 70 deg R rotation . Pt continues to be pain free with arm elevation with good rotator cuff activation using band and with minimal cues for scapular setting prior to lifting. Trialed D2 flexion, but pt unable to perform without significant L GHJ clicking and pain; discontinued. Pt would benefit from further strengthening in order to maximize rotator cuff strength within newly available ROM. Physical Therapy Plan Frequency and Duration Frequency of Treatment 1x/wk every 2-3 wk Duration of treatment (weeks) 12 Plan of Care Start Date 11/12/23 Plan of Care End Date 02/06/24 Therapeutic Interventions Therapeutic Interventions Balance Training,Gait Training ,Home Exercise Program,Joint Mobilizations,Manual Therapy, Neuromuscular Re-education, Patient/Caregiver Education, Self-Care/Home Management, Sensory Integration,Soft Tissue Mobilization,Taping, Therapeutic Activities, Therapeutic Exercises Modalities Cold Pack/Ice Massage,Electric Stimulation,Hot Packs, Ultrasound,Vasopneumatic Devices Next Visit Focus/Plan Next Note Type Treatment Note Next Visit Plan Trial D2 again AROM, supported 90/90 ER on table or seated, wall clock, eccentric IR, serratus slide/roll up, prone W lift w/ press vs standing, cont miniband vs wall walk laterally Trial small resistance with sidelying abduction/flex/ER, next session and progress periscapular strengthening, serratus strengthening w/ roll up, Possibly wall slides Manual: STM, joint mobilizations
--- NOTE | 2023-11-12 10:18 | PT.OPPOC ---
Physical, Occupational & Speech Therapy At Current Diagnoses Other chronic pain (11/12/23) Pain in left shoulder (11/12/23) Other specified disorders of muscle (11/12/23) Weakness (11/12/23) Visit Care Team Role Provider Type Fidel Chatterjee DO Family Provider Physician Primary Care Provider Specialty: [facility] Practice Address: [address] [place] [address], [id number] Email: Loida Kaplan DO Attending Provider Physician Referring Provider [place]ty: [facility] Address: [address] [place] [address], [address], [place], [address] Email: [email or web address] Plan Of Care PT-OP-T Assessment and Plan Start: 09/08/23 07:29 Freq: Status: Active Protocol: Document 11/12/23 07:30 NM (Rec: 11/12/23 08:19 NM [id number]) Physical Therapy Assessment Goals Five Impairment strength Impairment L shoulder IR/abduction 4/5 Short Term Goal (STG) Pt will improve L shoulder IR and abduction strength to at least 4+/5 MMT in order to increase strength required for ADLs, lifting, recreational activities 09/29/23: 4/5 for ER/IR/ABD 10/22/23: 4/5 MMT ER/IR/ABD 11/12/23: 4+/5 abd/IR STG Duration 6 weeks MET Program Support Clerk Goal (LTG) Pt will improve L shoulder IR and abduction strength to at least 5/5 MMT in order to increase strength required for ADLs, lifting, recreational activities 11/12/23: 4+/5 abd/IR LTG Duration 12 weeks PROGRESSING Four Impairment strength Impairment L shoulder flexion/ER 4-/5 MMT Short Term Goal (STG) Pt will improve L shoulder flexion/ER strength to at least 4/5 MMT in order to increase strength required for ADLs, lifting, recreational activities 09/29/23: 4-/5 flex (painful), 4/5 for ER/IR/ABD 10/22/23: 4-/5 for flexion with pain, 4/5 for ER 11/12/23: 4/5 STG Duration 6 weeks PARTIALLY MET Nursing Home Goal (LTG) Pt will improve L shoulder flexion/ER strength to at least 4+/5 MMT in order to increase strength required for ADLs, lifting, recreational activities 11/12/23: 4/5 for flex/ER LTG Duration 12 weeks PROGRESSING Three Impairment AROM Impairment L shoulder flexion 140 deg, abduction 155 deg Short Term Goal (STG) Pt will improve L shoulder flexion to at least 155 deg and L shoulder abduction to at least 160 deg in order to demonstrate improved shoulder mobility for reaching and ADLs 09/29/23: 160 deg flex, 170 deg abd 10/22/23: 168 deg flex, 165 deg abd STG Duration 6 weeks MET Nursing Home Goal (LTG) Pt will improve L shoulder flexion and abduction to at least 165 deg in order to demonstrate improved shoulder mobility for reaching and ADLs 11/12/23: 165 flex, 175 abd, T8 IR, T5 ER, 70 deg ER at 0 deg abd; demonstrates crepitus and GHJ clicking but reports no pain LTG Duration 12 weeks MET Two Impairment AROM Impairment cervical spine rotation 65 deg R Short Term Goal (STG) Pt will improve R cervical spine rotation to at least 70 deg in order to demonstrate improved muscle length for visual scanning 09/29/23: 65 deg L rotation 10/22/23: 66 deg L, 68 deg R STG Duration 6 weeks NOT MET Nursing Home Goal (LTG) Pt will improve R cervical spine rotation to at least 75 deg in order to demonstrate improved muscle length for visual scanning 11/12/23: 70 deg R, 88 deg L LTG Duration 12 weeks PARTIALLY MET One Impairment HEP Impairment not performing HEP Short Term Goal (STG) Pt will report compliance with HEP at least 2-3x/wk in order to maximize progression with PT and promote independence with rehabilitation 09/29/23: performing HEP every day 10/22/23: performing every other day STG Duration 6 weeks MET Program Support Clerk Goal (LTG) Pt will report compliance with HEP at least 3x/wk in order to transition into maintenance program upon discharge from PT 11/12/23: at least 3x/wk, very compliant with HEP LTG Duration 12 weeks MET Progress Towards Goals Progress Towards Goals Progressing Toward Goals,Goals Met Assessment Summary Assessment Pt has been seen x8 visits since evaluation. He is progressing well toward goals and has met all ROM goals, except for cervical spine rotation. However, pt demonstrates significant progression with cervical rotation ROM since evaluation. Pt has improved L shoulder strength, but continues to have weakness in L shoulder flexion and ER. He does not have pain with resisted movements any more, especially when working against gravity. However, pt's lack of strength does limit his ability to perform recreational activities. Pt reports that since starting PT , he is now able to perform ADLs without limitation. He only has limitations with activity tolerance, strength, and performing recreational activities due to weakness and occasional pain. PT has educated pt on importance of rotator cuff and periscapular strength, in addition to correct scapular alignment to promote better movement patterns. PT also recommended that pt seek referral to specialist for further assessment if pt reports any worsening changes (does not at this time) or if he is ever unable to perform his daily tasks. At this time, pt is wanting to use remaining insurance visits for further strengthening. PT in agreement . Pt would benefit from further skilled PT for L shoulder strengthening within newly available ROM in order to maximize independence and ability to perform ADLs/IADLs/ recreational activities with fewer limitations. Physical Therapy Plan Frequency and Duration Frequency of Treatment 1x/wk every 2-3 wk Duration of treatment (weeks) 12 Plan of Care Start Date 11/12/23 Plan of Care End Date 02/06/24 Therapeutic Interventions Therapeutic Interventions Balance Training,Gait Training ,Home Exercise Program,Joint Mobilizations,Manual Therapy, Neuromuscular Re-education, Patient/Caregiver Education, Self-Care/Home Management, Sensory Integration,Soft Tissue Mobilization,Taping, Therapeutic Activities, Therapeutic Exercises Modalities Cold Pack/Ice Massage,Electric Stimulation,Hot Packs, Ultrasound,Vasopneumatic Devices Next Visit Focus/Plan Next Note Type Treatment Note Next Visit Plan Trial D2 again AROM, supported 90/90 ER on table or seated, wall clock, eccentric IR, serratus slide/roll up, prone W lift w/ press vs standing, cont miniband vs wall walk laterally Trial small resistance with sidelying abduction/flex/ER, next session and progress periscapular strengthening, serratus strengthening w/ roll up, Possibly wall slides Manual: STM, joint mobilizations Plan of Care Dates Plan of Care Start Date 11/12/23 Plan of Care End Date 02/06/24 Electronically Signed by: Joslyn Sam, PT 11/12/23 1018 If you are in agreement with this Plan of Care, please return a signed and dated copy. I have reviewed this Plan of Care and certify that the skilled therapy services above are required to meet the patient?s needs. Physician Signature Date Printed Name and Credentials Clinical Instructor Signature Printed Name and Credentials
--- NOTE | 2023-12-12 10:57 | PT.OTN ---
Current Diagnoses Other chronic pain (12/12/23) Pain in left shoulder (12/12/23) Other specified disorders of muscle (12/12/23) Weakness (12/12/23) Physical Therapy Treatment Note PT-OP-A Visit Information Start: 09/08/23 07:29 Freq: Status: Active Protocol: Document 12/12/23 07:30 NM (Rec: 12/12/23 08:18 NM [id number]) Out-Patient Physical Therapy Visit Information Visit Information Visit Type Treatment Note Visit Start Time 07:32 Visit Stop Time 08:15 Visit Number 10 PT-OP-B Current Condition Start: 09/08/23 07:29 Freq: Status: Active Protocol: Document 09/08/23 08:15 NM (Rec: 09/08/23 09:07 NM [id number]) Current Condition History of Current Condition Onset Date 1 year ago Current Complaints strength, mobility History of Current Condition Pt presents with L shoulder pain. He slipped on ice 1 year ago, landing on shoulder with arm by side. Pt states went to doctor who thinks rotator cuff and AC joint; states caution about freezing up. Reports improving gradually with full ROM, with a little hitch with elevation. He is concerned about weakness, especially to prevent damaging it further. In early July, he began having L sided neck pain to shoulder blade, which is also restricting motion; states improved with muscle relaxers. He can do everything but not smoothly. Pt states that he does not have numbness/ tingling and denies falling asleep, but states coldness compared to RUE. Pt has a past shoulder injury from football , a stinger that went away. Has hx of neck pain, improved with prednisone. Pt also reports that he has hx of instability, including subluxations or dislocations from his youth Prior Treatments and Tests 04/2022 Radiograph: no fracture/dislocation, mild AC joint OA Current Functional Impairments (Reported) Functional Limitations- ADL's lifting ~milk jug Functional Limitations- Mobility/Gait improved with grooming, dressing Functional Limitations- Other driving with L hand, mowing lawn (push mower) PT-OP-C Subjective Start: 09/08/23 07:29 Freq: Status: Active Protocol: Document 12/12/23 07:30 NM (Rec: 12/12/23 08:18 NM [id number]) OP-PT Subjective Patient Comments Patient Comments Pt reports that shoulder is doing much better, states he can do a lot more. Still has lots of clicking but not pain. He can drive with his L hand, which he couldn't do before. Feels like strenghtening. PT-OP-E Functional Tests Start: 09/08/23 07:29 Freq: Status: Active Protocol: Document 09/08/23 08:15 NM (Rec: 09/08/23 09:07 NM [id number]) Functional Tests Apley's Scratch Test Action 1- Left ant shoulder Action 1- Right post scap Action 2- Left T4 Action 2- Right T4 Action 3- Left T9 Action 3- Right T10 PT-OP-F Manual Assessment Start: 09/08/23 07:29 Freq: Status: Active Protocol: Document 09/08/23 08:15 NM (Rec: 09/08/23 09:07 NM [id number]) Manual Assessments Soft Tissue Assessment Soft Tissue Mobility Assessment Decreased latissimus length. Tenderness of L rotator cuff, especially near insertion, and periscapular muscles. Demos 8 cm L medial scapular border from spine, 11 cm R scapular medial border to spine Joint Mobility Assessment Joint Mobility Assessment Demos forward placement of L humeral head. Full passive L shoulder ROM, limitations in L active shoulder ROM PT-OP-G Mobility & Gait Start: 09/08/23 07:29 Freq: Status: Active Protocol: Document 09/08/23 08:15 NM (Rec: 09/08/23 16:18 NM [id number]) OP Gait Assessment Gait Distance (Feet) 150 Comments Gait Comments Demos slightly antalgic gait, no trunk rotation or arm swing PT-OP-H Neuro Start: 09/08/23 07:29 Freq: Status: Active Protocol: Document 09/08/23 08:15 NM (Rec: 09/08/23 16:18 NM [id number]) Sensation Evaluation Comments Summary Comments Will assess formally in next session PT-OP-J Posture/Palpation/Skin Start: 09/08/23 07:29 Freq: Status: Active Protocol: Document 09/08/23 08:15 NM (Rec: 09/08/23 16:18 NM [id number]) Posture Evaluation Position Standing Head/C-Spine Posture Forward Head T-Spine Posture Increased Kyphosis Shoulder Posture (L) Forward,(R) Forward Scapula Posture (L) Protracted,(R) Protracted, (L) Tipped Arm Posture (L) Internally Rotated,(R) Internally Rotated Pelvis Posture Anteriorly Tilted Weight Distribution Balanced Hip Posture (L) Externally Rotated,(R) Externally Rotated Palpation Assessment Location L shoulder Palpation Details Tenderness: rotator cuff, latissimus, rhomboids, AC joint Tightness: latissimus, cervical spine paraspinals and upper trapezius/levator scapula Skin Assessment Other Assessments Skin Assessment Comments No swelling, change in temperature, or color of LUE compared to RUE at evaluation PT-OP-K Range of Motion Start: 09/08/23 07:29 Freq: Status: Active Protocol: Document 12/12/23 07:30 NM (Rec: 12/12/23 10:56 NM [id number]) Shoulder Goniometric Range of Motion Shoulder Left Flexion 165 Extension 60 Abduction 175 External Rotation at 0 degrees Abduction 70 Internal Rotation 70 Internal Rotation Behind Back (text) T8 Comments 09/08/23: Demos UT compensation , trunk rot with ER 09/29/23: 160 deg flex, 170 deg abd, 60 deg ER at 0 deg abd 10/22/23: T9 IR, 168 deg flex, 165 deg abd, 60 deg ER 11/12/23: 165 flex, 175 abd, T8 IR, T5 ER, 70 deg ER at 0 deg abd; demonstrates crepitus and GHJ clicking but reports no pain 12/12/23: 170 deg flex and abd w/o pain (slight click at end range), T4 for HADD, T7 ER apley, 70 deg ER at 0 deg abd, T9 IR PT-OP-L Special Tests Start: 09/08/23 07:29 Freq: Status: Active Protocol: Document 09/08/23 08:15 NM (Rec: 09/08/23 09:07 NM [id number]) Special Tests Cervical Spine Special Tests Spurling's Test Results - Shoulder Special Tests Apprehension-Relocation Test Results - IR/Horizontal ADD Impingement Test Results - Empty Can Test Results + Drop Arm Rotator Cuff Test Results - External Rotation Lag Sign Test Results - Lift-Off Rotator Cuff Test Results - Comments able to lift off but increased L shoulder tightness and discomfort Spence Víctor Impingement Test Results - Neer Impingement Test Results - AC Joint Compression Test Results + PT-OP-M Strength Start: 09/08/23 07:29 Freq: Status: Active Protocol: Document 11/12/23 07:30 NM (Rec: 11/12/23 10:15 NM [id number]) Shoulder Strength Shoulder Manual Muscle Testing Left Flexion 4 Good Extension 4+ Good+ Abduction (C5) 4+ Good+ External Rotation 4 Good Internal Rotation 4+ Good+ Comments 09/29/23: 4-/5 flex (painful), 4/5 for all rest 10/22/23: 4-/5 flex (painful), 4 /5 for all rest (no pain) 11/12/23: 4/5 flex/ER ( nonpainful), 4+/5 abd/IR ( nonpainful) PT-OP-Q Treatments Start: 09/08/23 07:29 Freq: Status: Active Protocol: Document 12/12/23 07:30 NM (Rec: 12/12/23 08:18 NM [id number]) Therapeutic Exercises Standing Exercises wall walk Standing Exercise Name wall clock: 12, 9, 6 ea side Side bilateral Resistance level 1 band at wrists Reps/Minutes 5 sets Comments challenging w/ L flex D2 Standing Exercise Name elbow flexed Side left Resistance level 1 band Reps/Minutes 5 Comments d/c due to clicking scapular plank Standing Exercise Name 1. push up plank, 2. protract with slide, 3. shoulder taps Side bilateral Reps/Minutes 1. 15x3, 2. 10, 3. 5 taps ea side Comments cued for no shldr shrug rotator cuff theraband Standing Exercise Name miniband Side bilateral Resistance level 1 band Reps/Minutes 5 Manual Therapy Treatment Consent Patient gave verbal consent for manual Yes treatment Soft Tissue Mobilization L shoulder Body Location pec, periscapular, rotator cuff, lat, UT/LS Mobilization Type Rolling,Sustained Pressure Intensity/Depth Moderate Body Position sidelying/supine Comments No tenderness today at muscles , but continues to have tightness and restrictions in anterior chest and posterior cuff muscles. Improved with soft tissue mobilization prior to exercise Joint Mobilizations L scapulothoracic Direction depression and adduction Grade III Body Position Sidelying Reps/Duration 20 ea Comments improved ROM L GHJ Direction posterior gapping and lateral gapping Grade IV Body Position Hooklying Reps/Duration 2x30 ea Comments lateral gapping performed with functional movement into cross body adduction. Monitored for pain, no joint clicking but reports of instability at end range cross body ADD. None when ROM lessened PT-OP-T Assessment and Plan Start: 09/08/23 07:29 Freq: Status: Active Protocol: Document 12/12/23 07:30 NM (Rec: 12/12/23 08:18 NM [id number]) Physical Therapy Assessment Goals Five Impairment strength Impairment L shoulder IR/abduction 4/5 Short Term Goal (STG) Pt will improve L shoulder IR and abduction strength to at least 4+/5 MMT in order to increase strength required for ADLs, lifting, recreational activities 09/29/23: 4/5 for ER/IR/ABD 10/22/23: 4/5 MMT ER/IR/ABD 11/12/23: 4+/5 abd/IR STG Duration 6 weeks MET [employer] Goal (LTG) Pt will improve L shoulder IR and abduction strength to at least 5/5 MMT in order to increase strength required for ADLs, lifting, recreational activities 11/12/23: 4+/5 abd/IR LTG Duration 12 weeks PROGRESSING Four Impairment strength Impairment L shoulder flexion/ER 4-/5 MMT Short Term Goal (STG) Pt will improve L shoulder flexion/ER strength to at least 4/5 MMT in order to increase strength required for ADLs, lifting, recreational activities 09/29/23: 4-/5 flex (painful), 4/5 for ER/IR/ABD 10/22/23: 4-/5 for flexion with pain, 4/5 for ER 11/12/23: 4/5 STG Duration 6 weeks PARTIALLY MET Correction Goal (LTG) Pt will improve L shoulder flexion/ER strength to at least 4+/5 MMT in order to increase strength required for ADLs, lifting, recreational activities 11/12/23: 4/5 for flex/ER LTG Duration 12 weeks PROGRESSING Three Impairment AROM Impairment L shoulder flexion 140 deg, abduction 155 deg Short Term Goal (STG) Pt will improve L shoulder flexion to at least 155 deg and L shoulder abduction to at least 160 deg in order to demonstrate improved shoulder mobility for reaching and ADLs 09/29/23: 160 deg flex, 170 deg abd 10/22/23: 168 deg flex, 165 deg abd STG Duration 6 weeks MET [employer] Goal (LTG) Pt will improve L shoulder flexion and abduction to at least 165 deg in order to demonstrate improved shoulder mobility for reaching and ADLs 11/12/23: 165 flex, 175 abd, T8 IR, T5 ER, 70 deg ER at 0 deg abd; demonstrates crepitus and GHJ clicking but reports no pain 12/12/23: 170 deg flex and abd w/o pain (slight click at end range), T4 for HADD, T7 ER apley, 70 deg ER at 0 deg abd, T9 IR LTG Duration 12 weeks MET Two Impairment AROM Impairment cervical spine rotation 65 deg R Short Term Goal (STG) Pt will improve R cervical spine rotation to at least 70 deg in order to demonstrate improved muscle length for visual scanning 09/29/23: 65 deg L rotation 10/22/23: 66 deg L, 68 deg R STG Duration 6 weeks NOT MET [employer] Goal (LTG) Pt will improve R cervical spine rotation to at least 75 deg in order to demonstrate improved muscle length for visual scanning 11/12/23: 70 deg R, 88 deg L LTG Duration 12 weeks PARTIALLY MET One Impairment HEP Impairment not performing HEP Short Term Goal (STG) Pt will report compliance with HEP at least 2-3x/wk in order to maximize progression with PT and promote independence with rehabilitation 09/29/23: performing HEP every day 10/22/23: performing every other day STG Duration 6 weeks MET Correction Goal (LTG) Pt will report compliance with HEP at least 3x/wk in order to transition into maintenance program upon discharge from PT 11/12/23: at least 3x/wk, very compliant with HEP LTG Duration 12 weeks MET Assessment Summary Assessment Pt has full ROM on L shoulder. He continues to have weakness with ER and flexion, but improved compared to initial evaluation. He has not pain but demos increased clicking in ACJ and GHJ with arm elevation. Continues to have discomfort with D2 flexion, so discontinued. Trialed closed chain rotator cuff and periscapular strengthening. Pt challenged with wall clock with band into L flexion; has limited ROM but no pain. Added plank protraction taps to HEP . Emphasis on joint stabilization today; requires cues to limit trunk ext compensation with end range. Pt would benefit from skilled PT for L shoulder strengthening in order to improve ability to perform overhead ADLs and yard work. Physical Therapy Plan Frequency and Duration Frequency of Treatment 1x/wk every 2-3 wk Duration of treatment (weeks) 12 Plan of Care Start Date 11/12/23 Plan of Care End Date 02/06/24 Therapeutic Interventions Therapeutic Interventions Balance Training,Gait Training ,Home Exercise Program,Joint Mobilizations,Manual Therapy, Neuromuscular Re-education, Patient/Caregiver Education, Self-Care/Home Management, Sensory Integration,Soft Tissue Mobilization,Taping, Therapeutic Activities, Therapeutic Exercises Modalities Cold Pack/Ice Massage,Electric Stimulation,Hot Packs, Ultrasound,Vasopneumatic Devices Next Visit Focus/Plan Next Note Type Progress Note Next Visit Plan trial landmine press, supported 90/90, therabar supported 90/90 ER on table or seated, wall clock, eccentric IR serratus slide/roll up, prone W lift w/ press vs standing, cont miniband vs wall walk laterally Trial small resistance with sidelying abduction/flex/ER, next session and progress periscapular strengthening, serratus strengthening w/ roll up, Possibly wall slides Manual: STM, joint mobilizations
--- NOTE | 2023-12-24 08:30 | PT.OTN ---
Current Diagnoses Other chronic pain (12/24/23) Pain in left shoulder (12/24/23) Other specified disorders of muscle (12/24/23) Weakness (12/24/23) Physical Therapy Treatment Note PT-OP-A Visit Information Start: 09/08/23 07:29 Freq: Status: Active Protocol: Document 12/24/23 07:24 NM (Rec: 12/24/23 08:29 NM [id number]) Out-Patient Physical Therapy Visit Information Visit Information Visit Type Progress Note Visit Start Time 07:30 Visit Stop Time 08:15 Visit Number 11 Evaluation Information Evaluation Date 09/08/23 Precautions Precautions osteopenia PT-OP-B Current Condition Start: 09/08/23 07:29 Freq: Status: Active Protocol: Document 09/08/23 08:15 NM (Rec: 09/08/23 09:07 NM [id number]) Current Condition History of Current Condition Onset Date 1 year ago Current Complaints strength, mobility History of Current Condition Pt presents with L shoulder pain. He slipped on ice 1 year ago, landing on shoulder with arm by side. Pt states went to doctor who thinks rotator cuff and AC joint; states caution about freezing up. Reports improving gradually with full ROM, with a little hitch with elevation. He is concerned about weakness, especially to prevent damaging it further. In early July, he began having L sided neck pain to shoulder blade, which is also restricting motion; states improved with muscle relaxers. He can do everything but not smoothly. Pt states that he does not have numbness/ tingling and denies falling asleep, but states coldness compared to RUE. Pt has a past shoulder injury from football , a stinger that went away. Has hx of neck pain, improved with prednisone. Pt also reports that he has hx of instability, including subluxations or dislocations from his youth Prior Treatments and Tests 04/2022 Radiograph: no fracture/dislocation, mild AC joint OA Current Functional Impairments (Reported) Functional Limitations- ADL's lifting ~milk jug Functional Limitations- Mobility/Gait improved with grooming, dressing Functional Limitations- Other driving with L hand, mowing lawn (push mower) PT-OP-C Subjective Start: 09/08/23 07:29 Freq: Status: Active Protocol: Document 12/24/23 07:24 NM (Rec: 12/24/23 08:29 NM [id number]) OP-PT Subjective Patient Comments Patient Comments Pt states that he had difficulty with shoulder taps exercises, states that yesterday he felt like his L shoulder was bothering him after mowing the lawn. Did not do exercises yesterday. No pain or discomfort since last session except for yesterday, also made a lot of noise. PT-OP-E Functional Tests Start: 09/08/23 07:29 Freq: Status: Active Protocol: Document 09/08/23 08:15 NM (Rec: 09/08/23 09:07 NM [id number]) Functional Tests Apley's Scratch Test Action 1- Left ant shoulder Action 1- Right post scap Action 2- Left T4 Action 2- Right T4 Action 3- Left T9 Action 3- Right T10 PT-OP-F Manual Assessment Start: 09/08/23 07:29 Freq: Status: Active Protocol: Document 09/08/23 08:15 NM (Rec: 09/08/23 09:07 NM [id number]) Manual Assessments Soft Tissue Assessment Soft Tissue Mobility Assessment Decreased latissimus length. Tenderness of L rotator cuff, especially near insertion, and periscapular muscles. Demos 8 cm L medial scapular border from spine, 11 cm R scapular medial border to spine Joint Mobility Assessment Joint Mobility Assessment Demos forward placement of L humeral head. Full passive L shoulder ROM, limitations in L active shoulder ROM PT-OP-G Mobility & Gait Start: 09/08/23 07:29 Freq: Status: Active Protocol: Document 09/08/23 08:15 NM (Rec: 09/08/23 16:18 NM [id number]) OP Gait Assessment Gait Distance (Feet) 150 Comments Gait Comments Demos slightly antalgic gait, no trunk rotation or arm swing PT-OP-H Neuro Start: 09/08/23 07:29 Freq: Status: Active Protocol: Document 09/08/23 08:15 NM (Rec: 09/08/23 16:18 NM [id number]) Sensation Evaluation Comments Summary Comments Will assess formally in next session PT-OP-J Posture/Palpation/Skin Start: 09/08/23 07:29 Freq: Status: Active Protocol: Document 09/08/23 08:15 NM (Rec: 09/08/23 16:18 NM [id number]) Posture Evaluation Position Standing Head/C-Spine Posture Forward Head T-Spine Posture Increased Kyphosis Shoulder Posture (L) Forward,(R) Forward Scapula Posture (L) Protracted,(R) Protracted, (L) Tipped Arm Posture (L) Internally Rotated,(R) Internally Rotated Pelvis Posture Anteriorly Tilted Weight Distribution Balanced Hip Posture (L) Externally Rotated,(R) Externally Rotated Palpation Assessment Location L shoulder Palpation Details Tenderness: rotator cuff, latissimus, rhomboids, AC joint Tightness: latissimus, cervical spine paraspinals and upper trapezius/levator scapula Skin Assessment Other Assessments Skin Assessment Comments No swelling, change in temperature, or color of LUE compared to RUE at evaluation PT-OP-K Range of Motion Start: 09/08/23 07:29 Freq: Status: Active Protocol: Document 12/24/23 07:24 NM (Rec: 12/24/23 08:29 NM [id number]) Cervical Spine Range of Motion Cervical Spine Active Degrees Flexion 45 Extension 30 Rotation Left 70 Rotation Right 65 Lateral Flexion Left 40 Lateral Flexion Right 20 Comments Tightness and minimal L neck/ shoulder pain reproduced with R lateral flexion and rotation 10/22/23: 66 deg L rotation, 68 deg R rotation 11/12/23: 70 deg R, 88 deg L 12/24/23: 75 deg B rotation Shoulder Goniometric Range of Motion Shoulder Left Flexion 165 Extension 60 Abduction 175 External Rotation at 0 degrees Abduction 70 Internal Rotation 70 Internal Rotation Behind Back (text) T8 Comments 09/08/23: Demos [place] compensation , trunk rot with ER 09/29/23: 160 deg flex, 170 deg abd, 60 deg ER at 0 deg abd 10/22/23: T9 IR, 168 deg flex, 165 deg abd, 60 deg ER 11/12/23: 165 flex, 175 abd, T8 IR, T5 ER, 70 deg ER at 0 deg abd; demonstrates crepitus and GHJ clicking but reports no pain 12/12/23: 170 deg flex and abd w/o pain (slight click at end range), T4 for HADD, T7 ER apley, 70 deg ER at 0 deg abd, T9 IR 12/24/23: 75 deg ER, PT-OP-L Special Tests Start: 09/08/23 07:29 Freq: Status: Active Protocol: Document 09/08/23 08:15 NM (Rec: 09/08/23 09:07 NM [id number]) Special Tests Cervical Spine Special Tests Spurling's Test Results - Shoulder Special Tests Apprehension-Relocation Test Results - IR/Horizontal ADD Impingement Test Results - Empty Can Test Results + Drop Arm Rotator Cuff Test Results - External Rotation Lag Sign Test Results - Lift-Off Rotator Cuff Test Results - Comments able to lift off but increased L shoulder tightness and discomfort Spence Víctor Impingement Test Results - Neer Impingement Test Results - AC Joint Compression Test Results + PT-OP-M Strength Start: 09/08/23 07:29 Freq: Status: Active Protocol: Document 12/24/23 07:24 NM (Rec: 12/24/23 08:29 NM [id number]) Shoulder Strength Shoulder Manual Muscle Testing Left Flexion 4 Good Extension 4+ Good+ Abduction (C5) 4+ Good+ External Rotation 4 Good Internal Rotation 4+ Good+ Comments 09/29/23: 4-/5 flex (painful), 4/5 for all rest 10/22/23: 4-/5 flex (painful), 4 /5 for all rest (no pain) 11/12/23: 4/5 flex/ER ( nonpainful), 4+/5 abd/IR ( nonpainful) 12/24/23: 4+ flex/IR/abd, 4/5 ER PT-OP-Q Treatments Start: 09/08/23 07:29 Freq: Status: Active Protocol: Document 12/24/23 07:24 NM (Rec: 12/24/23 08:29 NM [id number]) Therapeutic Exercises Standing Exercises rhythmic stabilization Standing Exercise Name rotator cuff therabar Side left Equipment Used yellow tbar Reps/Minutes 60 Comments hard, not painful landmine press Side left Resistance 5#, short lever arm Reps/Minutes 20 Comments pain free, no joint noise lat pull down Standing Exercise Name wide arm harness brusher Side bilateral Resistance level 4 > level 5 Reps/Minutes 10, 10 Comments cued squeeze dollar bill in axilla foam roller on wall Standing Exercise Name 1. uni arm serratus ball roll up, 2. serratus press w/ trunk rot away Side left Reps/Minutes 1. 15, 2. 10 Comments pain free, no joint clicking; good protraction scapular plank Standing Exercise Name shoulder tap plank on wall Side bilateral Reps/Minutes 15 taps ea side Comments more incline today rows Side bilateral Resistance level 4 > 5 Reps/Minutes 2x10 Comments improved scap control low rows Standing Exercise Name shoulder ext Side bilateral Resistance level 4 > 5 Reps/Minutes 2x10 Comments improved scap control Other Exercises quadruped Other Exercise Name thread needle Side bilateral Reps/Minutes 10 Self-Care/Home Management Treatment Education Other Education Educated to rest on same day and day after performing yard work vs performing HEP to allow L shoulder to rest and prevent overuse Educated on progressing resistance vs number of reps PT-OP-T Assessment and Plan Start: 09/08/23 07:29 Freq: Status: Active Protocol: Document 12/24/23 07:24 NM (Rec: 12/24/23 08:29 NM [id number]) Physical Therapy Assessment Goals Five Impairment strength Impairment L shoulder IR/abduction 4/5 Short Term Goal (STG) Pt will improve L shoulder IR and abduction strength to at least 4+/5 MMT in order to increase strength required for ADLs, lifting, recreational activities 09/29/23: 4/5 for ER/IR/ABD 10/22/23: 4/5 MMT ER/IR/ABD 11/12/23: 4+/5 abd/IR STG Duration 6 weeks MET Field Coordinator Goal (LTG) Pt will improve L shoulder IR and abduction strength to at least 5/5 MMT in order to increase strength required for ADLs, lifting, recreational activities 11/12/23: 4+/5 abd/IR 12/24/23: 4+ flex/IR/abd, 4/5 ER LTG Duration 12 weeks PROGRESSING Four Impairment strength Impairment L shoulder flexion/ER 4-/5 MMT Short Term Goal (STG) Pt will improve L shoulder flexion/ER strength to at least 4/5 MMT in order to increase strength required for ADLs, lifting, recreational activities 09/29/23: 4-/5 flex (painful), 4/5 for ER/IR/ABD 10/22/23: 4-/5 for flexion with pain, 4/5 for ER 11/12/23: 4/5 STG Duration 6 weeks PARTIALLY MET Field Coordinator Goal (LTG) Pt will improve L shoulder flexion/ER strength to at least 4+/5 MMT in order to increase strength required for ADLs, lifting, recreational activities 11/12/23: 4/5 for flex/ER 12/24/23: 4+ flex/IR/abd, 4/5 ER LTG Duration 12 weeks PROGRESSING, PARTIALLY MET Three Impairment AROM Impairment L shoulder flexion 140 deg, abduction 155 deg Short Term Goal (STG) Pt will improve L shoulder flexion to at least 155 deg and L shoulder abduction to at least 160 deg in order to demonstrate improved shoulder mobility for reaching and ADLs 09/29/23: 160 deg flex, 170 deg abd 10/22/23: 168 deg flex, 165 deg abd STG Duration 6 weeks MET Field Coordinator Goal (LTG) Pt will improve L shoulder flexion and abduction to at least 165 deg in order to demonstrate improved shoulder mobility for reaching and ADLs 11/12/23: 165 flex, 175 abd, T8 IR, T5 ER, 70 deg ER at 0 deg abd; demonstrates crepitus and GHJ clicking but reports no pain 12/12/23: 170 deg flex and abd w/o pain (slight click at end range), T4 for HADD, T7 ER apley, 70 deg ER at 0 deg abd, T9 IR LTG Duration 12 weeks MET Two Impairment AROM Impairment cervical spine rotation 65 deg R Short Term Goal (STG) Pt will improve R cervical spine rotation to at least 70 deg in order to demonstrate improved muscle length for visual scanning 09/29/23: 65 deg L rotation 10/22/23: 66 deg L, 68 deg R STG Duration 6 weeks NOT MET [facility] Goal (LTG) Pt will improve R cervical spine rotation to at least 75 deg in order to demonstrate improved muscle length for visual scanning 11/12/23: 70 deg R, 88 deg L 12/24/23: 75 deg for both LTG Duration 12 weeks MET One Impairment HEP Impairment not performing HEP Short Term Goal (STG) Pt will report compliance with HEP at least 2-3x/wk in order to maximize progression with PT and promote independence with rehabilitation 09/29/23: performing HEP every day 10/22/23: performing every other day STG Duration 6 weeks MET Field Coordinator Goal (LTG) Pt will report compliance with HEP at least 3x/wk in order to transition into maintenance program upon discharge from PT 11/12/23: at least 3x/wk, very compliant with HEP LTG Duration 12 weeks MET Progress Towards Goals Progress Towards Goals Progressing Toward Goals,Goals Met Assessment Summary Assessment Pt tolerated session well. Continues to have full L shoulder ROM and demos improvements in strength. Pt able to perform lat pull down and landmine press. Progressed to level 4 and 5 bands for all periscapular strengthening activities without any increase in L shoulder pain. Pt does report increased muscle activation and soreness but differentiates between soreness and pain. Pt has improved B cervical spine rotation, up to 75 deg. He also demonstrates improved ability to stabilize L shoulder in plank or quadruped . Pt continues to have difficulty with cross arm adduction, which will be addressed in future sessions. He would benefit from skilled PT for L shoulder strengthening. Physical Therapy Plan Frequency and Duration Frequency of Treatment 1x/wk every 2-3 wk Duration of treatment (weeks) 12 Plan of Care Start Date 11/12/23 Plan of Care End Date 02/06/24 Therapeutic Interventions Therapeutic Interventions Balance Training,Gait Training ,Home Exercise Program,Joint Mobilizations,Manual Therapy, Neuromuscular Re-education, Patient/Caregiver Education, Self-Care/Home Management, Sensory Integration,Soft Tissue Mobilization,Taping, Therapeutic Activities, Therapeutic Exercises Modalities Cold Pack/Ice Massage,Electric Stimulation,Hot Packs, Ultrasound,Vasopneumatic Devices Next Visit Focus/Plan Next Note Type Treatment Note Next Visit Plan review landmine press, cross body ADD, trial supported 90/90, therabar supported 90/90 ER on table or seated, wall clock, eccentric IR serratus slide/roll up, prone W lift w/ press vs standing, cont miniband vs wall walk laterally Trial small resistance with sidelying abduction/flex/ER, next session and progress periscapular strengthening, serratus strengthening w/ roll up, Possibly wall slides Manual: STM, joint mobilizations
--- NOTE | 2024-01-07 12:07 | PT.OTN ---
Current Diagnoses Other chronic pain (01/07/24) Pain in left shoulder (01/07/24) Other specified disorders of muscle (01/07/24) Weakness (01/07/24) Physical Therapy Treatment Note PT-OP-A Visit Information Start: 09/08/23 07:29 Freq: Status: Active Protocol: Document 01/07/24 07:28 NM (Rec: 01/07/24 08:18 NM [id number]) Out-Patient Physical Therapy Visit Information Visit Information Visit Type Treatment Note Visit Start Time 07:30 Visit Stop Time 08:10 Visit Number 12 Evaluation Information Evaluation Date 09/08/23 Precautions Precautions osteopenia PT-OP-B Current Condition Start: 09/08/23 07:29 Freq: Status: Active Protocol: Document 09/08/23 08:15 NM (Rec: 09/08/23 09:07 NM [id number]) Current Condition History of Current Condition Onset Date 1 year ago Current Complaints strength, mobility History of Current Condition Pt presents with L shoulder pain. He slipped on ice 1 year ago, landing on shoulder with arm by side. Pt states went to doctor who thinks rotator cuff and AC joint; states caution about freezing up. Reports improving gradually with full ROM, with a little hitch with elevation. He is concerned about weakness, especially to prevent damaging it further. In early July, he began having L sided neck pain to shoulder blade, which is also restricting motion; states improved with muscle relaxers. He can do everything but not smoothly. Pt states that he does not have numbness/ tingling and denies falling asleep, but states coldness compared to RUE. Pt has a past shoulder injury from football , a stinger that went away. Has hx of neck pain, improved with prednisone. Pt also reports that he has hx of instability, including subluxations or dislocations from his youth Prior Treatments and Tests 04/2022 Radiograph: no fracture/dislocation, mild AC joint OA Current Functional Impairments (Reported) Functional Limitations- ADL's lifting ~milk jug Functional Limitations- Mobility/Gait improved with grooming, dressing Functional Limitations- Other driving with L hand, mowing lawn (push mower) PT-OP-C Subjective Start: 09/08/23 07:29 Freq: Status: Active Protocol: Document 01/07/24 07:28 NM (Rec: 01/07/24 08:18 NM [id number]) OP-PT Subjective Patient Comments Patient Comments Pt reports doing well, states L shoulder still feeling better but making noise. He states that he PT-OP-E Functional Tests Start: 09/08/23 07:29 Freq: Status: Active Protocol: Document 09/08/23 08:15 NM (Rec: 09/08/23 09:07 NM [id number]) Functional Tests Apley's Scratch Test Action 1- Left ant shoulder Action 1- Right post scap Action 2- Left T4 Action 2- Right T4 Action 3- Left T9 Action 3- Right T10 PT-OP-F Manual Assessment Start: 09/08/23 07:29 Freq: Status: Active Protocol: Document 09/08/23 08:15 NM (Rec: 09/08/23 09:07 NM [id number]) Manual Assessments Soft Tissue Assessment Soft Tissue Mobility Assessment Decreased latissimus length. Tenderness of L rotator cuff, especially near insertion, and periscapular muscles. Demos 8 cm L medial scapular border from spine, 11 cm R scapular medial border to spine Joint Mobility Assessment Joint Mobility Assessment Demos forward placement of L humeral head. Full passive L shoulder ROM, limitations in L active shoulder ROM PT-OP-G Mobility & Gait Start: 09/08/23 07:29 Freq: Status: Active Protocol: Document 09/08/23 08:15 NM (Rec: 09/08/23 16:18 NM [id number]) OP Gait Assessment Gait Distance (Feet) 150 Comments Gait Comments Demos slightly antalgic gait, no trunk rotation or arm swing PT-OP-H Neuro Start: 09/08/23 07:29 Freq: Status: Active Protocol: Document 09/08/23 08:15 NM (Rec: 09/08/23 16:18 NM [id number]) Sensation Evaluation Comments Summary Comments Will assess formally in next session PT-OP-J Posture/Palpation/Skin Start: 09/08/23 07:29 Freq: Status: Active Protocol: Document 09/08/23 08:15 NM (Rec: 09/08/23 16:18 NM [id number]) Posture Evaluation Position Standing Head/C-Spine Posture Forward Head T-Spine Posture Increased Kyphosis Shoulder Posture (L) Forward,(R) Forward Scapula Posture (L) Protracted,(R) Protracted, (L) Tipped Arm Posture (L) Internally Rotated,(R) Internally Rotated Pelvis Posture Anteriorly Tilted Weight Distribution Balanced Hip Posture (L) Externally Rotated,(R) Externally Rotated Palpation Assessment Location L shoulder Palpation Details Tenderness: rotator cuff, latissimus, rhomboids, AC joint Tightness: latissimus, cervical spine paraspinals and upper trapezius/levator scapula Skin Assessment Other Assessments Skin Assessment Comments No swelling, change in temperature, or color of LUE compared to RUE at evaluation PT-OP-K Range of Motion Start: 09/08/23 07:29 Freq: Status: Active Protocol: Document 12/24/23 07:24 NM (Rec: 12/24/23 08:29 NM [id number]) Cervical Spine Range of Motion Cervical Spine Active Degrees Flexion 45 Extension 30 Rotation Left 70 Rotation Right 65 Lateral Flexion Left 40 Lateral Flexion Right 20 Comments Tightness and minimal L neck/ shoulder pain reproduced with R lateral flexion and rotation 10/22/23: 66 deg L rotation, 68 deg R rotation 11/12/23: 70 deg R, 88 deg L 12/24/23: 75 deg B rotation Shoulder Goniometric Range of Motion Shoulder Left Flexion 165 Extension 60 Abduction 175 External Rotation at 0 degrees Abduction 70 Internal Rotation 70 Internal Rotation Behind Back (text) T8 Comments 09/08/23: Demos [place] compensation , trunk rot with ER 09/29/23: 160 deg flex, 170 deg abd, 60 deg ER at 0 deg abd 10/22/23: T9 IR, 168 deg flex, 165 deg abd, 60 deg ER 11/12/23: 165 flex, 175 abd, T8 IR, T5 ER, 70 deg ER at 0 deg abd; demonstrates crepitus and GHJ clicking but reports no pain 12/12/23: 170 deg flex and abd w/o pain (slight click at end range), T4 for HADD, T7 ER apley, 70 deg ER at 0 deg abd, T9 IR 12/24/23: 75 deg ER, PT-OP-L Special Tests Start: 09/08/23 07:29 Freq: Status: Active Protocol: Document 09/08/23 08:15 NM (Rec: 09/08/23 09:07 NM [id number]) Special Tests Cervical Spine Special Tests Spurling's Test Results - Shoulder Special Tests Apprehension-Relocation Test Results - IR/Horizontal ADD Impingement Test Results - Empty Can Test Results + Drop Arm Rotator Cuff Test Results - External Rotation Lag Sign Test Results - Lift-Off Rotator Cuff Test Results - Comments able to lift off but increased L shoulder tightness and discomfort Spence Víctor Impingement Test Results - Neer Impingement Test Results - AC Joint Compression Test Results + PT-OP-M Strength Start: 09/08/23 07:29 Freq: Status: Active Protocol: Document 12/24/23 07:24 NM (Rec: 12/24/23 08:29 NM [id number]) Shoulder Strength Shoulder Manual Muscle Testing Left Flexion 4 Good Extension 4+ Good+ Abduction (C5) 4+ Good+ External Rotation 4 Good Internal Rotation 4+ Good+ Comments 09/29/23: 4-/5 flex (painful), 4/5 for all rest 10/22/23: 4-/5 flex (painful), 4 /5 for all rest (no pain) 11/12/23: 4/5 flex/ER ( nonpainful), 4+/5 abd/IR ( nonpainful) 12/24/23: 4+ flex/IR/abd, 4/5 ER PT-OP-Q Treatments Start: 09/08/23 07:29 Freq: Status: Active Protocol: Document 01/07/24 07:28 NM (Rec: 01/07/24 08:18 NM [id number]) Therapeutic Exercises Standing Exercises raises Standing Exercise Name scaption Side left Resistance 1# db Reps/Minutes 5 Comments d/c due to increased pain at L superior shoulder landmine press Side left Resistance 5#>10# long lever arm Reps/Minutes 2x10 Comments pain free, no joint noise foam roller on wall Standing Exercise Name wall slide w/ band Side bilateral Reps/Minutes 3x5 shoulder IR Standing Exercise Name towel stretch Side left Reps/Minutes 2x30 ea rotator cuff theraband Standing Exercise Name 1. ER walkout, 2. IR isotonic Side left Resistance level 3 band Reps/Minutes 1. 10, 2. 2x10 Comments pain free Manual Therapy Treatment Consent Patient gave verbal consent for manual Yes treatment Soft Tissue Mobilization L shoulder Body Location pec, periscapular, rotator cuff, lat, UT/LS Mobilization Type Rolling,Sustained Pressure Intensity/Depth Moderate Body Position sidelying/supine Comments Mild tenderness today at muscles, but continues to have tightness and restrictions in anterior chest and posterior cuff muscles. Improved with soft tissue mobilization prior to exercise Joint Mobilizations L GHJ Direction posterior gapping and lateral gapping Grade III Body Position Hooklying Reps/Duration 2x30 ea Comments lateral gapping performed with functional movement into cross body adduction. Monitored for pain, no joint clicking but reports of instability at end range cross body ADD. None when ROM lessened PT-OP-T Assessment and Plan Start: 09/08/23 07:29 Freq: Status: Active Protocol: Document 01/07/24 07:28 NM (Rec: 01/07/24 08:18 NM [id number]) Physical Therapy Assessment Goals Five Impairment strength Impairment L shoulder IR/abduction 4/5 Short Term Goal (STG) Pt will improve L shoulder IR and abduction strength to at least 4+/5 MMT in order to increase strength required for ADLs, lifting, recreational activities 09/29/23: 4/5 for ER/IR/ABD 10/22/23: 4/5 MMT ER/IR/ABD 11/12/23: 4+/5 abd/IR STG Duration 6 weeks MET Pipe Manufacture Supervisor Goal (LTG) Pt will improve L shoulder IR and abduction strength to at least 5/5 MMT in order to increase strength required for ADLs, lifting, recreational activities 11/12/23: 4+/5 abd/IR 12/24/23: 4+ flex/IR/abd, 4/5 ER LTG Duration 12 weeks PROGRESSING Four Impairment strength Impairment L shoulder flexion/ER 4-/5 MMT Short Term Goal (STG) Pt will improve L shoulder flexion/ER strength to at least 4/5 MMT in order to increase strength required for ADLs, lifting, recreational activities 09/29/23: 4-/5 flex (painful), 4/5 for ER/IR/ABD 10/22/23: 4-/5 for flexion with pain, 4/5 for ER 11/12/23: 4/5 STG Duration 6 weeks PARTIALLY MET Fdc Goal (LTG) Pt will improve L shoulder flexion/ER strength to at least 4+/5 MMT in order to increase strength required for ADLs, lifting, recreational activities 11/12/23: 4/5 for flex/ER 12/24/23: 4+ flex/IR/abd, 4/5 ER LTG Duration 12 weeks PROGRESSING, PARTIALLY MET Three Impairment AROM Impairment L shoulder flexion 140 deg, abduction 155 deg Short Term Goal (STG) Pt will improve L shoulder flexion to at least 155 deg and L shoulder abduction to at least 160 deg in order to demonstrate improved shoulder mobility for reaching and ADLs 09/29/23: 160 deg flex, 170 deg abd 10/22/23: 168 deg flex, 165 deg abd STG Duration 6 weeks MET Fdc Goal (LTG) Pt will improve L shoulder flexion and abduction to at least 165 deg in order to demonstrate improved shoulder mobility for reaching and ADLs 11/12/23: 165 flex, 175 abd, T8 IR, T5 ER, 70 deg ER at 0 deg abd; demonstrates crepitus and GHJ clicking but reports no pain 12/12/23: 170 deg flex and abd w/o pain (slight click at end range), T4 for HADD, T7 ER apley, 70 deg ER at 0 deg abd, T9 IR LTG Duration 12 weeks MET Two Impairment AROM Impairment cervical spine rotation 65 deg R Short Term Goal (STG) Pt will improve R cervical spine rotation to at least 70 deg in order to demonstrate improved muscle length for visual scanning 09/29/23: 65 deg L rotation 10/22/23: 66 deg L, 68 deg R STG Duration 6 weeks NOT MET Fdc Goal (LTG) Pt will improve R cervical spine rotation to at least 75 deg in order to demonstrate improved muscle length for visual scanning 11/12/23: 70 deg R, 88 deg L 12/24/23: 75 deg for both LTG Duration 12 weeks MET One Impairment HEP Impairment not performing HEP Short Term Goal (STG) Pt will report compliance with HEP at least 2-3x/wk in order to maximize progression with PT and promote independence with rehabilitation 09/29/23: performing HEP every day 10/22/23: performing every other day STG Duration 6 weeks MET Fdc Goal (LTG) Pt will report compliance with HEP at least 3x/wk in order to transition into maintenance program upon discharge from PT 11/12/23: at least 3x/wk, very compliant with HEP LTG Duration 12 weeks MET Assessment Summary Assessment Pt tolerated session well. He has increased L shoulder pain with scaption raises with 1#. However, no pain with landmine press for increased rotator cuff activation or ER isometric/IR isotonic. Following shoulder IR stretching and mobilization, pt able to reach cross body without pain or limitation. Pt debating MRI for L shoulder; PT encouraged pt for further ortho assessment. Pt would benefit from skilled PT for L shoulder strengthening to improve ability to perform ADLs for reaching and lifting. Physical Therapy Plan Frequency and Duration Frequency of Treatment 1x/wk every 2-3 wk Duration of treatment (weeks) 12 Plan of Care Start Date 11/12/23 Plan of Care End Date 02/06/24 Therapeutic Interventions Therapeutic Interventions Balance Training,Gait Training ,Home Exercise Program,Joint Mobilizations,Manual Therapy, Neuromuscular Re-education, Patient/Caregiver Education, Self-Care/Home Management, Sensory Integration,Soft Tissue Mobilization,Taping, Therapeutic Activities, Therapeutic Exercises Modalities Cold Pack/Ice Massage,Electric Stimulation,Hot Packs, Ultrasound,Vasopneumatic Devices Next Visit Focus/Plan Next Note Type Treatment Note Next Visit Plan eccentric flex/abd, review landmine press, cross body ADD , trial isotonic ER trial supported 90/90, W press , serratus ball w/ rotation Manual: STM, joint mobilizations
--- NOTE | 2024-01-22 09:00 | PT.OTN ---
Current Diagnoses Other chronic pain (01/22/24) Pain in left shoulder (01/22/24) Other specified disorders of muscle (01/22/24) Weakness (01/22/24) Physical Therapy Treatment Note PT-OP-A Visit Information Start: 09/08/23 07:29 Freq: Status: Active Protocol: Document 01/22/24 08:10 NM (Rec: 01/22/24 09:00 NM [id number]) Out-Patient Physical Therapy Visit Information Visit Information Visit Type Treatment Note Visit Start Time 08:15 Visit Stop Time 08:55 Visit Number 13 Evaluation Information Evaluation Date 09/08/23 Precautions Precautions osteopenia PT-OP-B Current Condition Start: 09/08/23 07:29 Freq: Status: Active Protocol: Document 09/08/23 08:15 NM (Rec: 09/08/23 09:07 NM [id number]) Current Condition History of Current Condition Onset Date 1 year ago Current Complaints strength, mobility History of Current Condition Pt presents with L shoulder pain. He slipped on ice 1 year ago, landing on shoulder with arm by side. Pt states went to doctor who thinks rotator cuff and AC joint; states caution about freezing up. Reports improving gradually with full ROM, with a little hitch with elevation. He is concerned about weakness, especially to prevent damaging it further. In early July, he began having L sided neck pain to shoulder blade, which is also restricting motion; states improved with muscle relaxers. He can do everything but not smoothly. Pt states that he does not have numbness/ tingling and denies falling asleep, but states coldness compared to RUE. Pt has a past shoulder injury from football , a stinger that went away. Has hx of neck pain, improved with prednisone. Pt also reports that he has hx of instability, including subluxations or dislocations from his youth Prior Treatments and Tests 04/2022 Radiograph: no fracture/dislocation, mild AC joint OA Current Functional Impairments (Reported) Functional Limitations- ADL's lifting ~milk jug Functional Limitations- Mobility/Gait improved with grooming, dressing Functional Limitations- Other driving with L hand, mowing lawn (push mower) PT-OP-C Subjective Start: 09/08/23 07:29 Freq: Status: Active Protocol: Document 01/22/24 08:10 NM (Rec: 01/22/24 09:00 NM [id number]) OP-PT Subjective Patient Comments Patient Comments Pt reports that he over did it recently when lifting branches into a truck, feels like couldn't lift his arm during the day. States that occasionally the exercises cause clicking but depend on the order of the exercise. Pt states that he is coming to the realization that he is going to have to compensate because his shoulder is not like it was originally before his injury. Still that reaching cross body or reaching out to side. He is now using 5# prone T. States that his shoulder has gotten so much better. PT-OP-E Functional Tests Start: 09/08/23 07:29 Freq: Status: Active Protocol: Document 09/08/23 08:15 NM (Rec: 09/08/23 09:07 NM [id number]) Functional Tests Apley's Scratch Test Action 1- Left ant shoulder Action 1- Right post scap Action 2- Left T4 Action 2- Right T4 Action 3- Left T9 Action 3- Right T10 PT-OP-F Manual Assessment Start: 09/08/23 07:29 Freq: Status: Active Protocol: Document 09/08/23 08:15 NM (Rec: 09/08/23 09:07 NM [id number]) Manual Assessments Soft Tissue Assessment Soft Tissue Mobility Assessment Decreased latissimus length. Tenderness of L rotator cuff, especially near insertion, and periscapular muscles. Demos 8 cm L medial scapular border from spine, 11 cm R scapular medial border to spine Joint Mobility Assessment Joint Mobility Assessment Demos forward placement of L humeral head. Full passive L shoulder ROM, limitations in L active shoulder ROM PT-OP-G Mobility & Gait Start: 09/08/23 07:29 Freq: Status: Active Protocol: Document 09/08/23 08:15 NM (Rec: 09/08/23 16:18 NM [id number]) OP Gait Assessment Gait Distance (Feet) 150 Comments Gait Comments Demos slightly antalgic gait, no trunk rotation or arm swing PT-OP-H Neuro Start: 09/08/23 07:29 Freq: Status: Active Protocol: Document 09/08/23 08:15 NM (Rec: 09/08/23 16:18 NM [id number]) Sensation Evaluation Comments Summary Comments Will assess formally in next session PT-OP-J Posture/Palpation/Skin Start: 09/08/23 07:29 Freq: Status: Active Protocol: Document 09/08/23 08:15 NM (Rec: 09/08/23 16:18 NM [id number]) Posture Evaluation Position Standing Head/C-Spine Posture Forward Head T-Spine Posture Increased Kyphosis Shoulder Posture (L) Forward,(R) Forward Scapula Posture (L) Protracted,(R) Protracted, (L) Tipped Arm Posture (L) Internally Rotated,(R) Internally Rotated Pelvis Posture Anteriorly Tilted Weight Distribution Balanced Hip Posture (L) Externally Rotated,(R) Externally Rotated Palpation Assessment Location L shoulder Palpation Details Tenderness: rotator cuff, latissimus, rhomboids, AC joint Tightness: latissimus, cervical spine paraspinals and upper trapezius/levator scapula Skin Assessment Other Assessments Skin Assessment Comments No swelling, change in temperature, or color of LUE compared to RUE at evaluation PT-OP-K Range of Motion Start: 09/08/23 07:29 Freq: Status: Active Protocol: Document 12/24/23 07:24 NM (Rec: 12/24/23 08:29 NM [id number]) Cervical Spine Range of Motion Cervical Spine Active Degrees Flexion 45 Extension 30 Rotation Left 70 Rotation Right 65 Lateral Flexion Left 40 Lateral Flexion Right 20 Comments Tightness and minimal L neck/ shoulder pain reproduced with R lateral flexion and rotation 10/22/23: 66 deg L rotation, 68 deg R rotation 11/12/23: 70 deg R, 88 deg L 12/24/23: 75 deg B rotation Shoulder Goniometric Range of Motion Shoulder Left Flexion 165 Extension 60 Abduction 175 External Rotation at 0 degrees Abduction 70 Internal Rotation 70 Internal Rotation Behind Back (text) T8 Comments 09/08/23: Demos UT compensation , trunk rot with ER 09/29/23: 160 deg flex, 170 deg abd, 60 deg ER at 0 deg abd 10/22/23: T9 IR, 168 deg flex, 165 deg abd, 60 deg ER 11/12/23: 165 flex, 175 abd, T8 IR, T5 ER, 70 deg ER at 0 deg abd; demonstrates crepitus and GHJ clicking but reports no pain 12/12/23: 170 deg flex and abd w/o pain (slight click at end range), T4 for HADD, T7 ER apley, 70 deg ER at 0 deg abd, T9 IR 12/24/23: 75 deg ER, PT-OP-L Special Tests Start: 09/08/23 07:29 Freq: Status: Active Protocol: Document 09/08/23 08:15 NM (Rec: 09/08/23 09:07 NM [id number]) Special Tests Cervical Spine Special Tests Spurling's Test Results - Shoulder Special Tests Apprehension-Relocation Test Results - IR/Horizontal ADD Impingement Test Results - Empty Can Test Results + Drop Arm Rotator Cuff Test Results - External Rotation Lag Sign Test Results - Lift-Off Rotator Cuff Test Results - Comments able to lift off but increased L shoulder tightness and discomfort Spence Víctor Impingement Test Results - Neer Impingement Test Results - AC Joint Compression Test Results + PT-OP-M Strength Start: 09/08/23 07:29 Freq: Status: Active Protocol: Document 12/24/23 07:24 NM (Rec: 12/24/23 08:29 NM [id number]) Shoulder Strength Shoulder Manual Muscle Testing Left Flexion 4 Good Extension 4+ Good+ Abduction (C5) 4+ Good+ External Rotation 4 Good Internal Rotation 4+ Good+ Comments 09/29/23: 4-/5 flex (painful), 4/5 for all rest 10/22/23: 4-/5 flex (painful), 4 /5 for all rest (no pain) 11/12/23: 4/5 flex/ER ( nonpainful), 4+/5 abd/IR ( nonpainful) 12/24/23: 4+ flex/IR/abd, 4/5 ER PT-OP-Q Treatments Start: 09/08/23 07:29 Freq: Status: Active Protocol: Document 01/22/24 08:10 NM (Rec: 01/22/24 09:00 NM [id number]) Therapeutic Exercises Prone Exercises periscapular Prone Exercise Name T- 1. long lever, 2. short lever T, 3. Y Side left Resistance 5# > 3# Reps/Minutes 1. 8, 2. 3x10, 3. 8 Comments short lever HEP; no shldr pain long lever but challenging Standing Exercises shoulder extension Side bilateral Resistance AROM> 2# Equipment Used dowel Reps/Minutes 10 Comments pain free shoulder IR Standing Exercise Name 1. towel stretch mobilization IR and ER, 2. towel stretch w/ ext Side left Reps/Minutes 1. 10 ea ER and IR, 2. 10 Comments pain free; post mobilization rotator cuff theraband Standing Exercise Name ER isotonic (HEP) Side left Resistance level 1 band Reps/Minutes 3x10- 3rd set challenging Comments pain free; cued to remain w/i ROM w/o clicking, limit trunk rot w/ fatigue Manual Therapy Treatment Consent Patient gave verbal consent for manual Yes treatment Soft Tissue Mobilization L shoulder Body Location pec, periscapular, rotator cuff, lat, UT/LS Mobilization Type Rolling,Sustained Pressure Intensity/Depth Moderate Body Position sidelying/supine Comments No tenderness today at muscles , but continues to have tightness and restrictions in anterior chest and posterior cuff muscles Joint Mobilizations L scapulothoracic Direction depression and adduction Grade III Body Position Sidelying Reps/Duration 10 ea Comments improved ROM L GHJ Direction posterior gapping and lateral gapping, distraction Grade III Body Position Hooklying Reps/Duration 2x30 ea Comments lateral gapping performed with functional movement into cross body adduction. Monitored for pain, no joint clicking but reports of instability at end range cross body ADD. None when ROM lessened PT-OP-T Assessment and Plan Start: 09/08/23 07:29 Freq: Status: Active Protocol: Document 01/22/24 08:10 NM (Rec: 01/22/24 09:00 NM [id number]) Physical Therapy Assessment Goals Five Impairment strength Impairment L shoulder IR/abduction 4/5 Short Term Goal (STG) Pt will improve L shoulder IR and abduction strength to at least 4+/5 MMT in order to increase strength required for ADLs, lifting, recreational activities 09/29/23: 4/5 for ER/IR/ABD 10/22/23: 4/5 MMT ER/IR/ABD 11/12/23: 4+/5 abd/IR STG Duration 6 weeks MET Cad Administrator Goal (LTG) Pt will improve L shoulder IR and abduction strength to at least 5/5 MMT in order to increase strength required for ADLs, lifting, recreational activities 11/12/23: 4+/5 abd/IR 12/24/23: 4+ flex/IR/abd, 4/5 ER LTG Duration 12 weeks PROGRESSING Four Impairment strength Impairment L shoulder flexion/ER 4-/5 MMT Short Term Goal (STG) Pt will improve L shoulder flexion/ER strength to at least 4/5 MMT in order to increase strength required for ADLs, lifting, recreational activities 09/29/23: 4-/5 flex (painful), 4/5 for ER/IR/ABD 10/22/23: 4-/5 for flexion with pain, 4/5 for ER 11/12/23: 4/5 STG Duration 6 weeks PARTIALLY MET Intermediate Goal (LTG) Pt will improve L shoulder flexion/ER strength to at least 4+/5 MMT in order to increase strength required for ADLs, lifting, recreational activities 11/12/23: 4/5 for flex/ER 12/24/23: 4+ flex/IR/abd, 4/5 ER LTG Duration 12 weeks PROGRESSING, PARTIALLY MET Three Impairment AROM Impairment L shoulder flexion 140 deg, abduction 155 deg Short Term Goal (STG) Pt will improve L shoulder flexion to at least 155 deg and L shoulder abduction to at least 160 deg in order to demonstrate improved shoulder mobility for reaching and ADLs 09/29/23: 160 deg flex, 170 deg abd 10/22/23: 168 deg flex, 165 deg abd STG Duration 6 weeks MET Intermediate Goal (LTG) Pt will improve L shoulder flexion and abduction to at least 165 deg in order to demonstrate improved shoulder mobility for reaching and ADLs 11/12/23: 165 flex, 175 abd, T8 IR, T5 ER, 70 deg ER at 0 deg abd; demonstrates crepitus and GHJ clicking but reports no pain 12/12/23: 170 deg flex and abd w/o pain (slight click at end range), T4 for HADD, T7 ER apley, 70 deg ER at 0 deg abd, T9 IR LTG Duration 12 weeks MET Two Impairment AROM Impairment cervical spine rotation 65 deg R Short Term Goal (STG) Pt will improve R cervical spine rotation to at least 70 deg in order to demonstrate improved muscle length for visual scanning 09/29/23: 65 deg L rotation 10/22/23: 66 deg L, 68 deg R STG Duration 6 weeks NOT MET Cad Administrator Goal (LTG) Pt will improve R cervical spine rotation to at least 75 deg in order to demonstrate improved muscle length for visual scanning 11/12/23: 70 deg R, 88 deg L 12/24/23: 75 deg for both LTG Duration 12 weeks MET One Impairment HEP Impairment not performing HEP Short Term Goal (STG) Pt will report compliance with HEP at least 2-3x/wk in order to maximize progression with PT and promote independence with rehabilitation 09/29/23: performing HEP every day 10/22/23: performing every other day STG Duration 6 weeks MET Intermediate Goal (LTG) Pt will report compliance with HEP at least 3x/wk in order to transition into maintenance program upon discharge from PT 11/12/23: at least 3x/wk, very compliant with HEP LTG Duration 12 weeks MET Assessment Summary Assessment Pt tolerated session well with less glenohumeral joint clicking. He demonstrates improvements in L shoulder IR/ adduction with reaching behind or cross body, such as for ADLs. Pt able to perform limited reps of longer lever arm prone T. Educated on reducing weight and increasing reps for exercises before increasing resistance in order to improve endurance. Pt able to tolerate isotonic shoulder ER today without joint clicking or pain. Pt fatigued by 3rd set, recommended pt slowly work up to 3rd set for HEP. PT and pt discussed discharge to maintenance for continued strengthening next session; PT and pt in agreement. Physical Therapy Plan Frequency and Duration Frequency of Treatment 1x/wk every 2-3 wk Duration of treatment (weeks) 12 Plan of Care Start Date 11/12/23 Plan of Care End Date 02/06/24 Therapeutic Interventions Therapeutic Interventions Balance Training,Gait Training ,Home Exercise Program,Joint Mobilizations,Manual Therapy, Neuromuscular Re-education, Patient/Caregiver Education, Self-Care/Home Management, Sensory Integration,Soft Tissue Mobilization,Taping, Therapeutic Activities, Therapeutic Exercises Modalities Cold Pack/Ice Massage,Electric Stimulation,Hot Packs, Ultrasound,Vasopneumatic Devices Next Visit Focus/Plan Next Note Type Discharge Summary Next Visit Plan Condense HEP. serratus, cross body ADD, isotonic ER trial supported 90/90, W press , serratus ball w/ rotation Manual: STM, joint mobilizations
--- NOTE | 2024-02-05 08:13 | PT.OTN ---
Current Diagnoses Other chronic pain (02/05/24) Pain in left shoulder (02/05/24) Other specified disorders of muscle (02/05/24) Weakness (02/05/24) Physical Therapy Treatment Note PT-OP-A Visit Information Start: 09/08/23 07:29 Freq: Status: Active Protocol: Document 02/05/24 07:26 NM (Rec: 02/05/24 08:13 NM [id number]) Out-Patient Physical Therapy Visit Information Visit Information Visit Type Discharge Summary Visit Start Time 07:31 Visit Stop Time 08:11 Visit Number 14 Evaluation Information Evaluation Date 09/08/23 Precautions Precautions osteopenia PT-OP-B Current Condition Start: 09/08/23 07:29 Freq: Status: Active Protocol: Document 09/08/23 08:15 NM (Rec: 09/08/23 09:07 NM [id number]) Current Condition History of Current Condition Onset Date 1 year ago Current Complaints strength, mobility History of Current Condition Pt presents with L shoulder pain. He slipped on ice 1 year ago, landing on shoulder with arm by side. Pt states went to doctor who thinks rotator cuff and AC joint; states caution about freezing up. Reports improving gradually with full ROM, with a little hitch with elevation. He is concerned about weakness, especially to prevent damaging it further. In early July, he began having L sided neck pain to shoulder blade, which is also restricting motion; states improved with muscle relaxers. He can do everything but not smoothly. Pt states that he does not have numbness/ tingling and denies falling asleep, but states coldness compared to RUE. Pt has a past shoulder injury from football , a stinger that went away. Has hx of neck pain, improved with prednisone. Pt also reports that he has hx of instability, including subluxations or dislocations from his youth Prior Treatments and Tests 04/2022 Radiograph: no fracture/dislocation, mild AC joint OA Current Functional Impairments (Reported) Functional Limitations- ADL's lifting ~milk jug Functional Limitations- Mobility/Gait improved with grooming, dressing Functional Limitations- Other driving with L hand, mowing lawn (push mower) PT-OP-C Subjective Start: 09/08/23 07:29 Freq: Status: Active Protocol: Document 02/05/24 07:26 NM (Rec: 02/05/24 08:13 NM [id number]) OP-PT Subjective Patient Comments Patient Comments Pt reports that his shoulder is doing well. He reports that he could mow the front, back lawns and do all the trimmings without limitation or pain; also states his arm is clicking less. Reports compliance with HEP. Pt agrees to discharge today. PT-OP-E Functional Tests Start: 09/08/23 07:29 Freq: Status: Active Protocol: Document 09/08/23 08:15 NM (Rec: 09/08/23 09:07 NM [id number]) Functional Tests Apley's Scratch Test Action 1- Left ant shoulder Action 1- Right post scap Action 2- Left T4 Action 2- Right T4 Action 3- Left T9 Action 3- Right T10 PT-OP-F Manual Assessment Start: 09/08/23 07:29 Freq: Status: Active Protocol: Document 09/08/23 08:15 NM (Rec: 09/08/23 09:07 NM [id number]) Manual Assessments Soft Tissue Assessment Soft Tissue Mobility Assessment Decreased latissimus length. Tenderness of L rotator cuff, especially near insertion, and periscapular muscles. Demos 8 cm L medial scapular border from spine, 11 cm R scapular medial border to spine Joint Mobility Assessment Joint Mobility Assessment Demos forward placement of L humeral head. Full passive L shoulder ROM, limitations in L active shoulder ROM PT-OP-G Mobility & Gait Start: 09/08/23 07:29 Freq: Status: Active Protocol: Document 09/08/23 08:15 NM (Rec: 09/08/23 16:18 NM [id number]) OP Gait Assessment Gait Distance (Feet) 150 Comments Gait Comments Demos slightly antalgic gait, no trunk rotation or arm swing PT-OP-H Neuro Start: 09/08/23 07:29 Freq: Status: Active Protocol: Document 09/08/23 08:15 NM (Rec: 09/08/23 16:18 NM [id number]) Sensation Evaluation Comments Summary Comments Will assess formally in next session PT-OP-J Posture/Palpation/Skin Start: 09/08/23 07:29 Freq: Status: Active Protocol: Document 09/08/23 08:15 NM (Rec: 09/08/23 16:18 NM [id number]) Posture Evaluation Position Standing Head/C-Spine Posture Forward Head T-Spine Posture Increased Kyphosis Shoulder Posture (L) Forward,(R) Forward Scapula Posture (L) Protracted,(R) Protracted, (L) Tipped Arm Posture (L) Internally Rotated,(R) Internally Rotated Pelvis Posture Anteriorly Tilted Weight Distribution Balanced Hip Posture (L) Externally Rotated,(R) Externally Rotated Palpation Assessment Location L shoulder Palpation Details Tenderness: rotator cuff, latissimus, rhomboids, AC joint Tightness: latissimus, cervical spine paraspinals and upper trapezius/levator scapula Skin Assessment Other Assessments Skin Assessment Comments No swelling, change in temperature, or color of LUE compared to RUE at evaluation PT-OP-K Range of Motion Start: 09/08/23 07:29 Freq: Status: Active Protocol: Document 02/05/24 07:26 NM (Rec: 02/05/24 08:13 NM [id number]) Shoulder Goniometric Range of Motion Shoulder Left Flexion 165 Extension 60 Abduction 175 External Rotation at 0 degrees Abduction 70 Internal Rotation 70 Internal Rotation Behind Back (text) T8 Comments 09/08/23: Demos [place] compensation , trunk rot with ER 09/29/23: 160 deg flex, 170 deg abd, 60 deg ER at 0 deg abd 10/22/23: T9 IR, 168 deg flex, 165 deg abd, 60 deg ER 11/12/23: 165 flex, 175 abd, T8 IR, T5 ER, 70 deg ER at 0 deg abd; demonstrates crepitus and GHJ clicking but reports no pain 12/12/23: 170 deg flex and abd w/o pain (slight click at end range), T4 for HADD, T7 ER apley, 70 deg ER at 0 deg abd, T9 IR 12/24/23: 75 deg ER 02/05/24: no changes from last PN PT-OP-L Special Tests Start: 09/08/23 07:29 Freq: Status: Active Protocol: Document 09/08/23 08:15 NM (Rec: 09/08/23 09:07 NM [id number]) Special Tests Cervical Spine Special Tests Spurling's Test Results - Shoulder Special Tests Apprehension-Relocation Test Results - IR/Horizontal ADD Impingement Test Results - Empty Can Test Results + Drop Arm Rotator Cuff Test Results - External Rotation Lag Sign Test Results - Lift-Off Rotator Cuff Test Results - Comments able to lift off but increased L shoulder tightness and discomfort Spence Víctor Impingement Test Results - Neer Impingement Test Results - AC Joint Compression Test Results + PT-OP-M Strength Start: 09/08/23 07:29 Freq: Status: Active Protocol: Document 02/05/24 07:26 NM (Rec: 02/05/24 08:13 NM [id number]) Shoulder Strength Shoulder Manual Muscle Testing Left Flexion 4+ Good+ Extension 4+ Good+ Abduction (C5) 4+ Good+ External Rotation 4+ Good+ Internal Rotation 4+ Good+ Comments 09/29/23: 4-/5 flex (painful), 4/5 for all rest 10/22/23: 4-/5 flex (painful), 4 /5 for all rest (no pain) 11/12/23: 4/5 flex/ER ( nonpainful), 4+/5 abd/IR ( nonpainful) 12/24/23: 4+ flex/IR/abd, 4/5 ER 02/05/24: no pain PT-OP-Q Treatments Start: 09/08/23 07:29 Freq: Status: Active Protocol: Document 02/05/24 07:26 NM (Rec: 02/05/24 08:13 NM [id number]) Therapeutic Exercises Standing Exercises wall slide Standing Exercise Name serratus wall slide Side bilateral Resistance level 1 band Reps/Minutes 2x10 Comments pain free, good control; issued level 2 band for HEP lat pull down 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 IR, 2. ER Side left Resistance 1. level 4 band, 2. level 1 band Reps/Minutes 1. 3x10, 2. 2x10 Comments cued control with eccentric rows Standing Exercise Name 1. Mid row, 2. bent over row Side bilateral Resistance 1. level 2&5 bands, 2. 5# db Reps/Minutes 1. 2x10 w/ 3 hold, 2. 10 d/c d/t clicking Comments improved scap control low rows Side bilateral Resistance level 2&5 band Reps/Minutes 2x10 Comments improved scap control PT-OP-T Assessment and Plan Start: 09/08/23 07:29 Freq: Status: Active Protocol: Document 02/05/24 07:26 NM (Rec: 02/05/24 08:13 NM [id number]) Physical Therapy Assessment Goals Five Impairment strength Impairment L shoulder IR/abduction 4/5 Short Term Goal (STG) Pt will improve L shoulder IR and abduction strength to at least 4+/5 MMT in order to increase strength required for ADLs, lifting, recreational activities 09/29/23: 4/5 for ER/IR/ABD 10/22/23: 4/5 MMT ER/IR/ABD 11/12/23: 4+/5 abd/IR STG Duration 6 weeks MET [facility]ci Goal (LTG) Pt will improve L shoulder IR and abduction strength to at least 5/5 MMT in order to increase strength required for ADLs, lifting, recreational activities 11/12/23: 4+/5 abd/IR 12/24/23: 4+ flex/IR/abd, 4/5 ER 02/05/24: 4+/5 for all; pain free LTG Duration 12 weeks MET Four Impairment strength Impairment L shoulder flexion/ER 4-/5 MMT Short Term Goal (STG) Pt will improve L shoulder flexion/ER strength to at least 4/5 MMT in order to increase strength required for ADLs, lifting, recreational activities 09/29/23: 4-/5 flex (painful), 4/5 for ER/IR/ABD 10/22/23: 4-/5 for flexion with pain, 4/5 for ER 11/12/23: 4/5 STG Duration 6 weeks PARTIALLY MET Mobile Equipment Operator Goal (LTG) Pt will improve L shoulder flexion/ER strength to at least 4+/5 MMT in order to increase strength required for ADLs, lifting, recreational activities 11/12/23: 4/5 for flex/ER 12/24/23: 4+ flex/IR/abd, 4/5 ER 02/05/24: 4+/5 for all; pain free LTG Duration 12 weeks MET Three Impairment AROM Impairment L shoulder flexion 140 deg, abduction 155 deg Short Term Goal (STG) Pt will improve L shoulder flexion to at least 155 deg and L shoulder abduction to at least 160 deg in order to demonstrate improved shoulder mobility for reaching and ADLs 09/29/23: 160 deg flex, 170 deg abd 10/22/23: 168 deg flex, 165 deg abd STG Duration 6 weeks MET Mobile Equipment Operator Goal (LTG) Pt will improve L shoulder flexion and abduction to at least 165 deg in order to demonstrate improved shoulder mobility for reaching and ADLs 11/12/23: 165 flex, 175 abd, T8 IR, T5 ER, 70 deg ER at 0 deg abd; demonstrates crepitus and GHJ clicking but reports no pain 12/12/23: 170 deg flex and abd w/o pain (slight click at end range), T4 for HADD, T7 ER apley, 70 deg ER at 0 deg abd, T9 IR LTG Duration 12 weeks MET Two Impairment AROM Impairment cervical spine rotation 65 deg R Short Term Goal (STG) Pt will improve R cervical spine rotation to at least 70 deg in order to demonstrate improved muscle length for visual scanning 09/29/23: 65 deg L rotation 10/22/23: 66 deg L, 68 deg R STG Duration 6 weeks NOT MET Mobile Equipment Operator Goal (LTG) Pt will improve R cervical spine rotation to at least 75 deg in order to demonstrate improved muscle length for visual scanning 11/12/23: 70 deg R, 88 deg L 12/24/23: 75 deg for both LTG Duration 12 weeks MET One Impairment HEP Impairment not performing HEP Short Term Goal (STG) Pt will report compliance with HEP at least 2-3x/wk in order to maximize progression with PT and promote independence with rehabilitation 09/29/23: performing HEP every day 10/22/23: performing every other day STG Duration 6 weeks MET [facility]ci Goal (LTG) Pt will report compliance with HEP at least 3x/wk in order to transition into maintenance program upon discharge from PT 11/12/23: at least 3x/wk, very compliant with HEP LTG Duration 12 weeks MET Progress Towards Goals Progress Comments All goals met Assessment Summary Assessment Pt tolerated session well without increased pain. Session emphasis on establishing HEP. Pt demos increased clicking at L shoulder with free weight bent over row, but none with bands ; continued with banded exercises to avoid joint wear on L shoulder. Pt requires minimal cueing for form. Demos good scapular control. Still challenged by L shoulder ER, fatigues quickly but without pain. Physical Therapy Plan Frequency and Duration Frequency of Treatment 1x/wk every 2-3 wk Duration of treatment (weeks) 12 Plan of Care Start Date 11/12/23 Plan of Care End Date 02/06/24 Therapeutic Interventions Therapeutic Interventions Balance Training,Gait Training ,Home Exercise Program,Joint Mobilizations,Manual Therapy, Neuromuscular Re-education, Patient/Caregiver Education, Self-Care/Home Management, Sensory Integration,Soft Tissue Mobilization,Taping, Therapeutic Activities, Therapeutic Exercises Modalities Cold Pack/Ice Massage,Electric Stimulation,Hot Packs, Ultrasound,Vasopneumatic Devices Discharge Physical Therapy Discharge Reasons Goals Met Discharge Comments Issued maintenance program to further improve strength deficits Next Visit Focus/Plan Next Note Type Discharge Summary Next Visit Plan discharge from skilled PT
== END 2024-02-10 13:30 | disposition home or self-care (01) ==
LOC: PHYS 07:30
PROVIDERS: Family Provider Family Medicine; PCP Family Medicine; Referring Provider Family Medicine; Visit Provider Family Medicine
DX: M62.89 Other specified disorders of muscle (principal); M25.512 Pain in left shoulder; R53.1 Weakness; G89.29 Other chronic pain
CPT/HCPCS: 97110; 97140; 97162

== ENCOUNTER → 2024-04-22 06:55 | Outpatient (CLI) | payer OTHER, MEDICAID, SELFPAY ==
[2024-04-22 08:11] LABS: Cholesterol 175 mg/dL (140-199); HDL Cholesterol 36 mg/dL (40-60); LDL Cholesterol Calculated 114 mg/dL (<100); Triglycerides 127 mg/dL (35-150)
[2024-04-22 08:42] LABS: Prostate Specific Antigen Scrn 0.919 ng/mL (0.1-4.0)
[2024-04-26 14:10] LABS: Fecal Immunochemical Test Negative (Negative)
== END ==
PROVIDERS: Family Provider Family Medicine; PCP Family Medicine; Referring Provider Family Medicine; Visit Provider Family Medicine
DX: Z13.220 Encounter for screening for lipoid disorders (principal); Z12.5 Encounter for screening for malignant neoplasm of prostate; Z12.11 Encounter for screening for malignant neoplasm of colon
CPT/HCPCS: 36415; 80061; 82274; G0103

== ENCOUNTER → 2024-04-23 06:45 | Outpatient (CLI) | payer OTHER, MEDICAID, SELFPAY ==
--- NOTE | 2024-04-23 06:47 | DI.CT.S_ITS ---
PROCEDURE: CT LUNG LOW DOSE SCREENING INDICATIONS: screen lung ca TECHNIQUE: Noncontrast 2.0-2.5 mm thick sections acquired from the pulmonary apices to the posterior costophrenic angles. 7 mm thick axial MIP, and 5 mm coronal and sagittal reformats were then acquired. For radiation dose reduction, the following was used: automated exposure control, adjustment of mA and/or kV according to patient size. COMPARISON: None. FINDINGS: Image quality: Diagnostic. Lower Neck: No enlarged lymph nodes. Thyroid: No thyroid nodules which require sonographic follow up, per consensus guidelines. Axillae: No enlarged lymph nodes. Chest Wall: Unremarkable. Bones: Unremarkable. Lungs and Pleura: No pneumothorax or pleural effusions. No significant consolidation. Within the right lower lobe is seen a 1.1 centimeter solid nodule (series 3, image 139), with additional 1 centimeter and 0.8 centimeter nodules seen slightly more inferiorly (series 3, image 157). Further inferior in the right lower lobe are seen a couple calcified granulomas. Heart: Heart size is normal. No pericardial effusion. Thoracic Vessels: The aorta and pulmonary arteries demonstrate normal size. Mediastinum and Kami: No enlarged lymph nodes. Esophagus: No wall thickening. No hiatal hernia. Upper Abdomen: Visualized upper abdomen solid organs and bowel loops appear normal. IMPRESSION: Multiple right lower lobe juxtapleural pulmonary nodules measuring up to 1.1 centimeters. LUNG-RADS 4A; suspicious. Recommend PET-CT. Clinically Significant Non-pulmonary Findings: None. Dictated by: Avi Fajardo M.D. on 04/23/2024 at 9:31 Approved by: Avi Fajardo M.D. on 04/23/2024 at 9:39
== END ==
PROVIDERS: Family Provider Family Medicine; PCP Family Medicine; Referring Provider Family Medicine; Visit Provider Family Medicine
DX: F17.210 Nicotine dependence, cigarettes, uncomplicated (principal); Z12.2 Encounter for screening for malignant neoplasm of respiratory organs; R91.8 Other nonspecific abnormal finding of lung field
CPT/HCPCS: 71271

== ENCOUNTER → 2024-04-29 13:00 | Outpatient (CLI) | payer OTHER, MEDICAID, SELFPAY ==
[2024-04-29 13:36] LABS: Add Manual Diff / Slide Review NO; Basophils Absolute Auto 100 /uL (0-100); Basophils Percent Auto 0.7 % (0-2); Eosinophils Absolute Auto 300 /uL (0-450); Eosinophils Percent Auto 2.9 % (2-4); Hemoglobin 16.8 g/dL (13.5-17.5); Lymphocytes Absolute Auto 2600 /uL (1100-4500); Lymphocytes Percent Auto 29.4 % (25-40); Mean Corpuscular HGB Conc 34.2 % (30-36); Mean Corpuscular Hemoglobin 33.7 PG (26-34); Mean Corpuscular Volume 98.3 fL (80-100); Monocytes Absolute Auto 600 /uL (0-900); Monocytes Percent Auto 6.4 % (3-14); Neutrophils Absolute Auto 5400 /uL (1500-7000); Neutrophils Percent Auto 60.6 % (50-75); Platelet Count 294 X10^3/uL (150-400); Red Blood Cell Count 4.98 X10^6/uL (4.5-5.9); Red Cell Distribution Width 13.2 % (11.6-14.8); White Blood Cell Count 8.8 X10^3/uL (4.5-11.0)
[2024-04-29 13:51] LABS: Alanine Aminotransferase 20 IU/L (<50); Albumin 4.6 g/dL (3.5-5.0); Albumin Globulin Ratio 1.8 (1.0-2.8); Alkaline Phosphatase 84 U/L (38-126); Aspartate Aminotransferase 29 IU/L (17-59); BUN Creatinine Ratio 19.8 (6-22); Bilirubin Total 0.6 mg/dL (0.2-1.3); Blood Urea Nitrogen 22 mg/dL (9-20); Calcium 9.9 mg/dL (8.4-10.2); Carbon Dioxide 26 mmol/L (22-32); Chloride 105 mmol/L (98-107); Cholesterol 186 mg/dL (140-199); Estimated Glomerular Filt Rate > 60 mL/min (>60); Globulin 2.6 g/dL (1.7-4.1); Glucose 104 mg/dL (80-110); HDL Cholesterol 40 mg/dL (40-60); HEMOLYSIS < 15 (0-50); LDL Cholesterol Calculated 113 mg/dL (<100); Potassium 4.2 mmol/L (3.4-5.1); Sodium 139 mmol/L (137-145); Total Protein 7.2 g/dL (6.3-8.2); Triglycerides 167 mg/dL (35-150)
[2024-04-30 16:08] LABS: Absolute CD 4 Helper 1097 /uL (359-1519); Eosinophils 2 % (Not Estab.); Eosinophils (Absolute) 0.2 x10E3/uL (0.0-0.4); Hemacrit 50.9 % (37.5-51.0); Immature Granulocytes 0 % (Not Estab.); Lymphocytes 30 % (Not Estab.); Lymphocytes (Absolute) 2.6 x10E3/uL (0.7-3.1); MCHC 32.9 pg (26.6-33.0); MCHC 33.4 g/dL (31.5-35.7); MCV 99 fL (79-97); Monocytes 7 % (Not Estab.); Monocytes (Absolute) 0.6 x10E3/uL (0.1-0.9); Neutrophils 60 % (Not Estab.); Neutrophils (Absolute) 5.2 x10E3/uL (1.4-7.0); Percent CD 4 Pos Lymph 42.2 % (30.8-58.5); Platelets 298 x10E3/uL (150-450); RDW 12.5 % (11.6-15.4); Red Blood Cells 5.16 x10E6/uL (4.14-5.80); White Blood Cells 8.6 x10E3/uL (3.4-10.8)
[2024-05-04 17:45] LABS: HIV-1 RNA by PCR <20 copies/mL (.)
== END ==
PROVIDERS: Family Provider Family Medicine; PCP Family Medicine; Referring Provider Internal Medicine Infectious Disease; Visit Provider Internal Medicine Infectious Disease
DX: Z21 Asymptomatic human immunodeficiency virus [HIV] infection status (principal)
CPT/HCPCS: 36415; 80053; 80061; 85025; 86361; 87536

== ENCOUNTER → 2024-07-29 07:21 | Outpatient (CLI) | payer MEDICAID, MEDICARE, SELFPAY ==
[2024-07-29 07:52] LABS: Appearance Urine UA CLEAR; Bilirubin Urine UA NEGATIVE (NEGATIVE); Color Urine UA YELLOW; Glucose Urine UA NEGATIVE (Negative); Ketones Urine UA NEGATIVE (NEGATIVE); Leukocyte Esterase Urine UA NEGATIVE (NEGATIVE); Nitrite Urine UA POSITIVE (Negative); Occult Blood Urine UA TRACE-INTACT (Negative); Protein Urine UA NEGATIVE (Negative); Specific Gravity Urine UA 1.015 (1.000-1.035); Urobilinogen Urine UA 0.2 E.U./dL (0.2); pH Urine UA 6.5 (4.5-8.0)
[2024-07-29 08:02] LABS: Bacteria Urine Many (>30); RBC Urine 1-5/HPF (0-5/HPF); Urine Volume 10mL (spun); WBC Urine 5-10/HPF (0-5/HPF)
[2024-07-29 08:03] LABS: Amorphous Sediment Urine 1+; Other Crystals Urine Other Crystals:; Squamous Epithelial Cell Urine None Seen (0-5/HPF)
[2024-07-29 08:07] LABS: Add Manual Diff / Slide Review NO; Basophils Absolute Auto 0 /uL (0-100); Basophils Percent Auto 0.5 % (0-2); Eosinophils Absolute Auto 200 /uL (0-450); Eosinophils Percent Auto 2.8 % (2-4); Hemoglobin 16.2 g/dL (13.5-17.5); Lymphocytes Absolute Auto 2200 /uL (1100-4500); Lymphocytes Percent Auto 27.9 % (25-40); Mean Corpuscular HGB Conc 34.6 % (30-36); Mean Corpuscular Hemoglobin 33.7 PG (26-34); Mean Corpuscular Volume 97.6 fL (80-100); Monocytes Absolute Auto 400 /uL (0-900); Monocytes Percent Auto 5.3 % (3-14); Neutrophils Absolute Auto 5000 /uL (1500-7000); Neutrophils Percent Auto 63.5 % (50-75); Platelet Count 264 X10^3/uL (150-400); Red Blood Cell Count 4.82 X10^6/uL (4.5-5.9); Red Cell Distribution Width 13.2 % (11.6-14.8); White Blood Cell Count 7.9 X10^3/uL (4.5-11.0)
[2024-07-29 08:17] LABS: Alanine Aminotransferase 19 IU/L (<50); Albumin Globulin Ratio 1.7 (1.0-2.8); Alkaline Phosphatase 82 U/L (38-126); Aspartate Aminotransferase 27 IU/L (17-59); BUN Creatinine Ratio 16.8 (6-22); Bilirubin Total 0.3 mg/dL (0.2-1.3); Blood Urea Nitrogen 18 mg/dL (9-20); Calcium 9.2 mg/dL (8.4-10.2); Carbon Dioxide 30 mmol/L (22-32); Chloride 103 mmol/L (98-107); Estimated Glomerular Filt Rate > 60 mL/min (>60); Globulin 2.4 g/dL (1.7-4.1); Glucose 95 mg/dL (80-110); HEMOLYSIS < 15 (0-50); Potassium 4.1 mmol/L (3.4-5.1); Sodium 137 mmol/L (137-145); Total Protein 6.4 g/dL (6.3-8.2)
[2024-07-30 04:36] LABS: RPR Screen Non Reactive (Non Reactive)
== END ==
PROVIDERS: Family Provider Family Medicine; PCP Family Medicine; Referring Provider Internal Medicine Infectious Disease; Visit Provider Internal Medicine Infectious Disease
DX: Z21 Asymptomatic human immunodeficiency virus [HIV] infection status (principal)
CPT/HCPCS: 36415; 80053; 81003; 81015; 85025; 86592; 87535; 87536; 87538

== ENCOUNTER → 2024-08-06 14:10 | Outpatient (CLI) | payer MEDICARE, MEDICAID, SELFPAY ==
[2024-08-06 14:38] LABS: Appearance Urine UA SL CLOUDY; Bilirubin Urine UA NEGATIVE (NEGATIVE); Color Urine UA YELLOW; Glucose Urine UA NEGATIVE (Negative); Ketones Urine UA NEGATIVE (NEGATIVE); Leukocyte Esterase Urine UA NEGATIVE (NEGATIVE); Nitrite Urine UA POSITIVE (Negative); Occult Blood Urine UA TRACE-INTACT (Negative); Protein Urine UA NEGATIVE (Negative); Urobilinogen Urine UA 0.2 E.U./dL (0.2); pH Urine UA 5.5 (4.5-8.0)
[2024-08-06 14:39] LABS: Urine Volume 10mL (spun)
[2024-08-06 14:40] LABS: Bacteria Urine Many (>30); Culture Indicated Urine Cult Not Indicated; RBC Urine None Seen (0-5/HPF); Squamous Epithelial Cell Urine None Seen (0-5/HPF); WBC Urine 1-5/HPF (0-5/HPF)
[2024-08-06 17:12] LABS: Vitamin D 25 Hydroxy (D3) 35.5 ng/mL (30.0-100.0)
== END ==
PROVIDERS: Family Provider Family Medicine; PCP Family Medicine; Referring Provider Internal Medicine Infectious Disease; Visit Provider Family Medicine
DX: Z21 Asymptomatic human immunodeficiency virus [HIV] infection status (principal)
CPT/HCPCS: 36415; 81001; 82306; 86635; 87385

== ENCOUNTER → 2024-08-13 06:41 | Outpatient (CLI) | payer MEDICARE, MEDICAID, SELFPAY ==
--- NOTE | 2024-08-13 06:41 | DI.CT.S_ITS ---
PROCEDURE: CT LUNG LOW DOSE SCREENING INDICATIONS: pulmonary nodules, one hypermetabolic on PET scan TECHNIQUE: Noncontrast 2.0-2.5 mm thick sections acquired from the pulmonary apices to the posterior costophrenic angles. 7 mm thick axial MIP, and 5 mm coronal and sagittal reformats were then acquired. For radiation dose reduction, the following was used: automated exposure control, adjustment of mA and/or kV according to patient size. COMPARISON: [facility], [place], [place] PET CT FUSION SKULL 2 THIGH, 05/05/2024, 11:19. [facility], [place], CT LUNG LOW DOSE SCREENING, 04/23/2024, 7:15. FINDINGS: Image quality: Diagnostic. Lower Neck: No enlarged lymph nodes. Thyroid: No thyroid nodules which require sonographic follow up, per consensus guidelines. Axillae: No enlarged lymph nodes. Chest Wall: Gynecomastia. Bones: No suspicious osseous lesion. Lungs and Pleura: No pneumothorax or pleural effusions. Mild emphysematous change. No mass or significant pulmonary nodules. -Right lower lobe nodular opacity opacity measuring 0.7 cm, (3/136), previously 1.2 cm. -Additional opacity in the right lower lobe subpleural is also decreased. There are several benign calcified granuloma. Central airways are clear. Heart: Heart size is normal. No pericardial effusion. Thoracic Vessels: The aorta and pulmonary arteries demonstrate normal size. Mediastinum and Kami: No enlarged lymph nodes. Small calcified mediastinal and hilar lymph nodes. Esophagus: No wall thickening. No hiatal hernia. Upper Abdomen: Visualized upper abdomen solid organs and bowel loops appear normal. IMPRESSION: Right lower lobe nodular opacity measuring 0.7 cm is decreased in size. Suspect infectious/inflammatory etiology. LUNG-RADS 3; recommend follow-up chest CT in 6 months. Clinically Significant Non-pulmonary Findings: None. Dictated by: Dakota Davis M.D. on 08/13/2024 at 9:16 Approved by: Dakota Davis M.D. on 08/13/2024 at 9:27
== END ==
PROVIDERS: Family Provider Family Medicine; PCP Family Medicine; Referring Provider Family Medicine; Visit Provider Family Medicine
DX: F17.210 Nicotine dependence, cigarettes, uncomplicated (principal); Z12.2 Encounter for screening for malignant neoplasm of respiratory organs; R91.1 Solitary pulmonary nodule
CPT/HCPCS: 71271

== ENCOUNTER → 2024-09-13 09:47 | Outpatient (CLI) | payer MEDICARE, MEDICAID, SELFPAY ==
--- NOTE | 2024-09-13 10:04 | DI.RAD.S_ITS ---
PROCEDURE: XR DEXA AXIAL SKELETON INDICATIONS: screening COMPARISON: [facility], , XR DEXA AXIAL SKELETON, 06/05/2020, 10:01. FINDINGS: Lumbar Spine: Bone mineral density 1.068 g/cm2, T score 0.5, previously - 1.0. Left Femoral Neck: Bone mineral density 0.692 g/cm2, T score -1.4. Left Hip: Bone mineral density 0.895 g/cm2, T score -0.4, previously -1.1. Fracture Risk Calculation (when applicable): 10-year fracture risk of a major osteoporotic fracture 12 percent and of a hip fracture 2.7 percent. (T score greater or equal to -1.0 to: NORMAL) (T score from -1.1 to -2.4: OSTEOPENIA) (T score less than or equal to -2.5: OSTEOPOROSIS) IMPRESSION: Left femoral neck osteopenia Follow-up guidelines as follows: Osteoporosis: Consider a repeat DEXA and Vertebral Fracture Assessment (VFA) exam in 2 years or sooner if medically necessary, to reassess this patient's status. Osteopenia: Consider a repeat DEXA in 2-3 years to reassess this patient's status, or if there is a new clinical indication. Normal: Consider a repeat DEXA in 5 years or sooner, or if there is a new clinical indication. All treatment decisions require clinical judgment and consideration of individual patient factors, including patient preferences, comorbidities, previous drug use, risk factors not captured in the FRAX model (e.g., frailty, falls, vitamin D deficiency, increased bone turnover, interval significant decline in bone density ) and possible under- or over-estimation of fracture risk by FRAX. In addition, the NOF Guide recommends that FDA-approved medical therapies be considered in postmenopausal women and men age >= 50 years with a: * Hip or vertebral (clinical or morphometric) fracture * T-score of <=-2.5 at the spine or hip * Ten-year fracture probability by FRAX of >= 3% for hip fracture or >=20% for major osteoporotic fracture. Approved by: Saravanan Knight M.D. on 09/13/2024 at 13:57
== END ==
PROVIDERS: Family Provider Family Medicine; PCP Family Medicine; Referring Provider Family Medicine; Visit Provider Family Medicine
DX: M85.89 Other specified disorders of bone density and structure, multiple sites (principal)
CPT/HCPCS: 77080

== ENCOUNTER → 2024-09-14 06:46 | Outpatient (CLI) | payer MEDICARE, MEDICAID, SELFPAY ==
[2024-09-15 10:09] LABS: Rubeola Measles IgG 61.4 AU/mL (Immune >16.4)
== END ==
PROVIDERS: Family Provider Family Medicine; PCP Family Medicine; Referring Provider Family Medicine; Visit Provider Family Medicine
DX: Z01.84 Encounter for antibody response examination (principal)
CPT/HCPCS: 36415; 86765

== ENCOUNTER → 2024-10-28 11:07 | Outpatient (CLI) | payer MEDICARE, MEDICAID, SELFPAY ==
[2024-10-28 14:24] LABS: Alanine Aminotransferase 16 IU/L (<50); Albumin 4.4 g/dL (3.5-5.0); Albumin Globulin Ratio 1.5 (1.0-2.8); Alkaline Phosphatase 75 U/L (38-126); Aspartate Aminotransferase 31 IU/L (17-59); BUN Creatinine Ratio 17.2 (6-22); Bilirubin Total 0.4 mg/dL (0.2-1.3); Blood Urea Nitrogen 17 mg/dL (9-20); Calcium 9.1 mg/dL (8.4-10.2); Carbon Dioxide 30 mmol/L (22-32); Chloride 104 mmol/L (98-107); Estimated Glomerular Filt Rate > 60 mL/min (>60); Glucose 88 mg/dL (70-99); HEMOLYSIS 18 (0-50); Potassium 3.9 mmol/L (3.4-5.1); Sodium 141 mmol/L (137-145); Total Protein 7.4 g/dL (6.3-8.2)
[2024-10-28 14:47] LABS: Appearance Urine UA SL CLOUDY; Bilirubin Urine UA NEGATIVE (NEGATIVE); Color Urine UA YELLOW; Glucose Urine UA 1+ g/dL (Negative); Ketones Urine UA NEGATIVE (NEGATIVE); Leukocyte Esterase Urine UA NEGATIVE (NEGATIVE); Nitrite Urine UA POSITIVE (Negative); Occult Blood Urine UA TRACE-INTACT (Negative); Protein Urine UA TRACE (Negative); Specific Gravity Urine UA 1.025 (1.000-1.035); Urobilinogen Urine UA 0.2 E.U./dL (0.2)
[2024-10-28 14:50] LABS: Bacteria Urine Many (>30); RBC Urine None Seen (0-5/HPF); Squamous Epithelial Cell Urine None Seen (0-5/HPF); Urine Volume 10mL (spun); WBC Urine 1-5/HPF (0-5/HPF)
[2024-10-28 14:51] LABS: Culture Indicated Urine Specimen Cultured
== END ==
PROVIDERS: Family Provider Family Medicine; PCP Family Medicine; Referring Provider Family Medicine; Visit Provider Internal Medicine Infectious Disease
DX: R82.71 Bacteriuria (principal); Z21 Asymptomatic human immunodeficiency virus [HIV] infection status
CPT/HCPCS: 36415; 80053; 81003; 81015; 87086; 87536

== ENCOUNTER → 2025-03-25 14:18 | Outpatient (CLI) | payer MEDICARE, MEDICAID, SELFPAY ==
[2025-03-25 15:35] LABS: Add Manual Diff / Slide Review NO; Hematocrit 47.6 % (41-53); Hemoglobin 16.4 g/dL (13.5-17.5); Lymphocytes Absolute Auto 2900 /uL (1100-4500); Mean Corpuscular HGB Conc 34.5 % (30-36); Mean Corpuscular Hemoglobin 33.7 PG (26-34); Mean Corpuscular Volume 97.6 fL (80-100); Platelet Count 298 X10^3/uL (150-400)
[2025-03-25 15:49] LABS: Alanine Aminotransferase 15 IU/L (<50); Albumin 4.4 g/dL (3.5-5.0); Albumin Globulin Ratio 1.8 (1.0-2.8); Alkaline Phosphatase 70 U/L (38-126); Blood Urea Nitrogen 23 mg/dL (9-20); Calcium 9.6 mg/dL (8.4-10.2); Carbon Dioxide 25 mmol/L (22-32); Chloride 104 mmol/L (98-107); Cholesterol 161 mg/dL (140-199); Estimated Glomerular Filt Rate > 60 mL/min (>60); Globulin 2.5 g/dL (1.7-4.1); Glucose 84 mg/dL (70-99); HDL Cholesterol 39 mg/dL (40-60); HEMOLYSIS 18 (0-50); Potassium 4.6 mmol/L (3.4-5.1); Sodium 136 mmol/L (137-145); Total Protein 6.9 g/dL (6.3-8.2); Triglycerides 249 mg/dL (35-150)
== END ==
LOC: LAB 14:21
PROVIDERS: Family Provider Family Medicine; PCP Family Medicine; Referring Provider Family Medicine; Visit Provider Family Medicine
DX: Z12.5 Encounter for screening for malignant neoplasm of prostate (principal); E78.2 Mixed hyperlipidemia; B20 Human immunodeficiency virus [HIV] disease
CPT/HCPCS: 36415; 80053; 80061; 85025; G0103

== ENCOUNTER → 2025-04-13 14:38 | Outpatient (CLI) | payer MEDICARE, MEDICAID, SELFPAY ==
--- NOTE | 2025-04-13 14:44 | DI.RAD.S_ITS ---
PROCEDURE: XR HAND RT MIN 3V INDICATIONS: index finger knuckle pain TECHNIQUE: 3 views of the hand(s) acquired. COMPARISON: None. FINDINGS: Bones: No fractures or dislocations. [id number] osteoarthritic changes are noted throughout right hand and wrist joints more notably involving 1st CMC joint , of 1st and 2nd MCP joints. Radiolucencies are noted involving dorsal and ulnar aspect of 2nd metacarpal head. Soft tissues: No suspicious soft tissue calcifications. IMPRESSION: Osteoarthritic changes in right hand and wrist joints as above. 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 Dictated by: Junior Fernandez M.D. on 04/13/2025 at 16:00 Approved by: Junior Fernandez M.D. on 04/13/2025 at 16:01
== END ==
LOC: RAD 14:43
PROVIDERS: Family Provider Family Medicine; PCP Family Medicine; Referring Provider Family Medicine; Visit Provider Family Medicine
DX: M79.644 Pain in right finger(s) (principal)
CPT/HCPCS: 73130

== ENCOUNTER → 2025-04-21 16:27 | Outpatient (CLI) | payer MEDICARE, MEDICAID, SELFPAY ==
[2025-04-21 18:14] LABS: Uric Acid 4.1 mg/dL (3.5-8.5)
== END ==
PROVIDERS: Family Provider Family Medicine; PCP Family Medicine; Referring Provider Family Medicine; Visit Provider Family Medicine
DX: M79.644 Pain in right finger(s) (principal); M13.80 Other specified arthritis, unspecified site
CPT/HCPCS: 36415; 84550; 85651; 86038; 86140; 86200; 86430